=== PATIENT | male | born 1970 ===

== ENCOUNTER 2019-12-15 13:45 | Emergency (ER) | payer MEDICAID, SELFPAY ==
[2019-12-15 14:18] VITALS: BP 137/65; PULSE 74; RESP 18; TEMP 36.4; O2SAT 98; BMI 42.1
--- NOTE | 2019-12-15 15:08 | ED.EAR ---
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 Patient tells me he was cleaning his ear with a Q-tip and since then he has had pain with some mild drainage MD Complaint: ear pain, ear discharge and decreased hearing Location: right ear Duration: constant Severity: mild Treatment prior to arrival: eardrops ( using polymyxin/ Neosporin ear drops) Related Data Previous Rx's Medication Instructions Recorded amoxicillin-pot clavulanate 1 tab PO BID #14 tab 12/15/19 [Augmentin] Allergies Allergy/AdvReac Type Severity Reaction Status Date / Time No Known Allergies Allergy Verified 12/15/19 14:18 [No Known Allergies*] Review of Systems Review of Systems: Yes all other systems are reviewed and are negative Constitutional: Constitutional: Reports no additional constitutional complaints, Denies body ache(s), Denies chills, Denies fever(s), Denies headache(s) and Denies weakness Eyes: Eyes: Reports no additional eye complaints and Denies change in vision ENT: Reports system reviewed and no additional complaints, except as documented, Denies dizziness, Reports ear discharge, Reports otalgia, Denies headache(s), Denies nasal congestion, Denies nasal discharge and Denies neck pain Cardiovascular: Cardiovascular: Reports no additional cardiovascular complaints, Denies chest pain, Denies leg edema and Denies dyspnea Respiratory: Respiratory: Reports no additional respiratory complaints, Denies cough and Denies dyspnea Gastrointestinal: Gastrointestinal: Reports no additional gastrointestinal complaints, Denies abdominal pain, Denies diarrhea, Denies nausea and Denies vomiting Genitourinary: Genitourinary: Denies urinary incontinence Musculoskeletal: Musculoskeletal: Reports no additional musculoskeletal complaints, Denies back pain, Denies arthralgias, Denies joint swelling, Denies neck pain, Denies numbness and Denies tingling Integumentary/Breasts: Skin/Breast: Reports system reviewed and no additional complaints, except as docu and Denies rash Neurologic: Reports system reviewed and no additional complaints, except as documented, Denies Abnormal speech present, Denies dizziness, Denies headache(s), Denies numbness, Denies tingling and Denies weakness PMFSH Past Medical History Attestation statement: The following information was validated with the patient. Source: obtained from family and nursing notes reviewed Medical History Thyroid activity decreased Social History Social History Advance Directives: No Advance Directives Information Provided: Yes Physical Exam Vital Signs and I&O and Narrative: Vital Signs and I&O: Vital Signs Temp 97.6 F 12/15/19 14:18 Pulse 74 12/15/19 14:18 Resp 18 12/15/19 14:18 BP 137/65 12/15/19 14:18 Pulse Ox 98 12/15/19 14:18 Intake & Output 12/14/19 12/15/19 12/15/19 18:59 06:59 18:59 Weight 136.985 kg Body Mass Index 42.1 Const: General: cooperative, healthy appearing, comfortable and no acute distress Orientation/consciousness: patient oriented x3 Limitations: no limitations HENMT: Head: Yes normal to inspection Ears: hearing grossly normal bilaterally, periauricular adenopathy noted, external ear abnormal ( Erythema, exudate, swelling.), normal mastoids bilaterally and unable to visualize TM ( unable to completely visualize TM. ) on the right General nose exam: Normal external nose present Face and sinus: Yes normal facial exam Mouth: Normal oral and palatal mucosa present Throat: Yes posterior oropharynx normal Eyes: General: appearance normal, both eyes and all related structures Pupils: Equal, round and reactive pupils present Neck: Neck: Yes normal visual inspection Chest: Chest palpation & inspection: normal inspection of the chest Resp: Effort & Inspection: normal respiratory effort Auscultation: clear to auscultation bilaterally Cardio: Rate: regular rate Rhythm: regular rhythm Peripheral pulses: Peripheral pulses 2+ throughout GI: Inspection: Yes normal to inspection Palpation (GI): Soft to palpation and nontender Auscultation: normal bowel sounds Back/Spine/Pelvis: Thoracic/Lumbar Spine: thoracic and lumbar spine normal to inspection Skin: General skin exam: no rashes or lesions noted Neuro: General: patient oriented x3, no focal motor deficits and normal sensation to monofilament Cranial nerves: Yes Equal, round and reactive pupils present Cognition (Neuro): normal cognition Speech: No Abnormal speech present Gait exam (Neuro): Normal gait present Motor exam (neuro): 5/5 motor strength present throughout Extrem: General: Yes normal to inspection MDM - Ear MDM Narrative Medical decision making narrative: Exam consistent with right otitis externa. Unable to completely visualize the right TM. Due to patient's complaint of pain with associated hearing loss will also treat for acute otitis media. Again unable to completely visualize TMs the may also be a small perforation. Will have patient follow-up with PCP and ENT. Reviewed worrisome signs and symptoms and return to the emergency department. Comfortable discharge home. Discharge Plan Discharge Clinical Impression: Otitis externa Qualifiers: Otitis externa type: diffuse Chronicity: acute Laterality: right Qualified Code(s): H60.311 - Diffuse otitis externa, right ear Otitis media Qualifiers: Otitis media type: suppurative Chronicity: acute Laterality: right Recurrence: non-recurrent Spontaneous tympanic membrane rupture: without spontaneous rupture Qualified Code(s): H66.001 - Acute suppurative otitis media without spontaneous rupture of ear drum, right ear Patient Disposition: Home, Self-Care Instructions: Ear Infection (ED) Additional Instructions: We cannot rule out a small hole in the eardrum due the amount of swelling and drainage Prescriptions: New amoxicillin-pot clavulanate [Augmentin] 875-125 mg tablet 1 tab PO BID Qty: 14 RF: 0 Referrals: Rashaun Ansari [Physician] - 2 days Print Language: Swedish
== END 2019-12-15 16:23 | disposition home or self-care (01) ==
PROVIDERS: Emergency Provider Emergency Medicine; PCP Internal Medicine
DX: H60.311 Diffuse otitis externa, right ear (principal); H66.001 Acute suppurative otitis media without spontaneous rupture of ear drum, right ear; H92.01 Otalgia, right ear
CPT/HCPCS: 99283; 99284

== ENCOUNTER → 2019-12-29 10:57 | Outpatient (BNVA) | payer MEDICAID, SELFPAY | PROVIDERS: PCP Internal Medicine; Referring Provider Internal Medicine; Visit Provider Nurse Practitioner | DX: K21.9 Gastro-esophageal reflux disease without esophagitis (principal) | CPT/HCPCS: 99213 ==

== ENCOUNTER → 2020-03-30 10:49 | Outpatient (BNVA) | payer MEDICAID, SELFPAY | PROVIDERS: PCP Internal Medicine; Visit Provider Nurse Practitioner ==

== ENCOUNTER → 2020-09-22 13:04 | Outpatient (BNVA) | payer MEDICAID, SELFPAY | PROVIDERS: PCP Internal Medicine; Referring Provider Internal Medicine; Visit Provider Nurse Practitioner ==

== ENCOUNTER 2020-10-22 14:24 | Emergency (ER) | payer MEDICAID, SELFPAY ==
--- NOTE | ~2020-10-22 | CT_ITS ---
EXAMINATION: CT ABDOMEN AND PELVIS WITH CONTRAST CLINICAL INFORMATION: Right lower quadrant pain. Left flank pain. COMPARISON: Abdominal ultrasound dated 08/24/2019. TECHNIQUE: Multidetector volumetric images were obtained from the superior aspect of the liver through the pubic symphysis following administration 85 mL of Omnipaque 350 intravenous contrast. Sagittal and coronal reformatted images were obtained on the technologist's workstation. Oral Contrast: No. This CT examination was performed using dose optimization techniques as appropriate, variously including the following: *Automated exposure control. *Adjustment of mA and/or kV according to patient size (this includes techniques or standardized protocols for targeted exams where dose is matched to indication/reason for exam; i.e. extremities or head). *Use of iterative reconstruction technique. DLP: 1357 mGy-cm FINDINGS: LUNG BASES: Bilateral dependent atelectasis. LIVER, GALLBLADDER, AND BILIARY TREE: The liver is normal in size and shape. Parenchymal hypoattenuation, consistent with steatosis. No focal hepatic lesion or biliary ductal dilatation is present. Status post cholecystectomy. PANCREAS: Unremarkable. SPLEEN: Unremarkable. ADRENAL GLANDS: Unremarkable. KIDNEYS AND URETERS: The kidneys are normal in size and shape. Within the mid left ureter, there is a 0.4 cm stone located approximately 18 cm from the posterior axillary line at the level of the L3-L4 intervertebral disc. Approximately 1.5 cm more proximally within the left ureter, there is a 0.2 cm stone (axial image 431/925) at the level of the L3 vertebral body. No significant proximal hydroureter or hydronephrosis. Mild proximal periureteral and perinephric stranding, which could indicate a degree of obstructive uropathy. Slightly delayed enhancement of the left kidney. No additional renal or ureteral stone. No right-sided hydronephrosis or hydroureter. BLADDER: Unremarkable. GASTROINTESTINAL TRACT: No bowel wall thickening or associated inflammatory change. No small or large bowel obstruction. Unremarkable appendix. PERITONEAL CAVITY: No intra-abdominal free air or free fluid. No intra-abdominal mass or organized fluid collection/abscess formation. ABDOMINAL WALL: No significant hernia is appreciated. LYMPH NODES: No significant lymphadenopathy. VASCULAR: Unremarkable. PELVIC VISCERA: Prostate calcifications. OSSEOUS STRUCTURES: Unremarkable. CT/CT abdomen pelvis w con IMPRESSION: 1. Mid left ureteral stones measuring 0.4 and 0.2 cm at the level of the posterior L4 intervertebral disc and L3 vertebral body, respectively. No significant proximal hydroureter nephrosis. Proximal periureteral and perinephric stranding with mild hypoenhancement of the left kidney in relation to the right kidney, consistent with a degree of obstructive uropathy. 2. Hepatic steatosis.
[2020-10-22 14:35] VITALS: BP 143/73; PULSE 72; RESP 18; TEMP 36.6; O2SAT 98; BMI 44.3
[2020-10-22 15:24] VITALS: BP 130/65; PULSE 75; RESP 18; TEMP 36.7; O2SAT 98
--- NOTE | 2020-10-22 15:27 | PC.NURSE ---
patient a&o, c/o 12/18 back pain, vss, pt awaiting provider, will continue to monitor.
--- NOTE | 2020-10-22 15:53 | ED.GENADULT ---
HPI - General Adult General Chief complaint: Back Pain/Injury Stated complaint: back pain Time Seen by Provider: 10/22/20 15:05 Source: patient Mode of arrival: ambulatory Limitations: language barrier History of Present Illness HPI narrative: 50-year-old male with past medical history of GERD, hyperthyroid, bile salt diarrhea, and right upper quadrant abdominal pain presents for atraumatic severe left lower back pain that started at 9:00 a.m. this morning. The pain is constant and radiates to his abdomen. He has been vomiting due to pain. Movement makes his back pain worse. No urinary symptoms, no dysuria or retention, no fevers, no diarrhea, no dark or bloody stools. Patient has had no injury, no repetitive motion, no lifting. Patient has never had back pain like this before. Patient has had a cholecystectomy, no other abdominal surgeries. Onset (ago): hour(s) (6) Location: back and left Radiation: abdomen Severity: severe Severity scale (1-10): 10 Quality: stabbing Pain Consistency: constant Relieving factors: none Exacerbating factors: movement Associated symptoms: nausea/vomiting Treatments prior to arrival: none Related Data Home Medications Medication Instructions Recorded Confirmed levothyroxine 50 mcg tablet 50 mcg PO DAILY 03/30/20 03/30/20 (Synthroid) Previous Rx's Medication Instructions Recorded sucralfate 1 gram tablet (Carafate) 2 g PO BID 30 Days #120 tab 03/30/20 dicyclomine 20 mg tablet 20 mg PO QID 30 Days #120 tab 09/22/20 omeprazole 40 mg capsule,delayed 40 mg PO DAILY 30 Days #30 cap 09/22/20 release ketorolac 10 mg tablet 10 mg PO Q6H 5 Days #20 tab 10/22/20 prednisone 20 mg tablet 20 mg PO DAILY 4 Days #4 tab 10/22/20 tamsulosin 0.4 mg capsule (Flomax) 0.4 mg PO DAILY 14 Days #14 cap 10/22/20 Allergies Allergy/AdvReac Type Severity Reaction Status Date / Time No Known Allergies Allergy Verified 10/22/20 14:41 [No Known Allergies*] Review of Systems Constitutional: Constitutional: Denies body ache(s), Denies chills, Denies fatigue, Denies fever(s), Denies headache(s), Denies malaise and Denies weakness Eyes: Eyes: Denies change in vision and Denies diplopia ENT: Denies dizziness, Denies otalgia, Denies headache(s), Denies mouth pain and Denies sore throat Cardiovascular: Cardiovascular: Denies chest pain, Denies syncope, Denies leg edema, Denies lightheadedness, Denies palpitations and Denies dyspnea Respiratory: Respiratory: Denies chest congestion, Denies cough and Denies dyspnea Gastrointestinal: Gastrointestinal: Reports abdominal pain, Denies melena, Denies hematochezia, Denies change in bowel habits, Denies coffee ground emesis, Denies constipation, Denies fecal incontinence, Denies diarrhea, Reports nausea and Reports vomiting Genitourinary: Genitourinary: Denies urinary frequency, Denies urinary hesitancy, Denies urinary incontinence and Denies urinary urgency Musculoskeletal: Musculoskeletal: Reports back pain Integumentary/Breasts: Skin/Breast: Denies erythema and Denies rash Neurologic: Denies confusion, Denies dizziness, Denies syncope, Denies headache(s) and Denies weakness Psychiatric: Psychiatric: Denies anxiety, Denies confusion and Denies depression Endocrine: Endocrine: Denies fatigue and Denies palpitations PMFSH Past Medical History Medical History Thyroid activity decreased Surgical History History of cholecystectomy Family History Family History Father Diabetes High blood pressure Mother Hypothyroid High blood pressure Social History Social History Household Members: Spouse Alcohol intake: never Patient Tobacco Use Status: Never used Tobacco Use of substances other than those prescribed or required for medical reasons: No Advance Directives: No Advance Directives Information Provided: Yes Physical Exam Vital Signs: Vital Signs: Last Vital Signs Temp 99.2 F 10/22/20 18:02 Pulse 75 10/22/20 18:02 Resp 17 10/22/20 18:02 BP 116/57 L 10/22/20 18:02 Pulse Ox 96 10/22/20 18:02 Body Mass Index 44.3 Const: General: cooperative, alert, awake and acute distress (d/t pain) moderate; No confusion Nutritional Appearance: obese morbidly obese Orientation/consciousness: patient oriented x3 and No confusion Limitations: language barrier HENMT: Head: Yes normal to inspection, Yes normocephalic and Yes atraumatic Ears: hearing grossly normal bilaterally General nose exam: Normal external nose present Face and sinus: Yes normal facial exam Mouth: Normal oral and palatal mucosa present Throat: Yes posterior oropharynx normal Eyes: Conjunctivae: conjunctivae normal Pupils: Equal, round and reactive pupils present EOM: EOMs intact bilaterally Neck: Neck: Yes full ROM, Yes no lymphadenopathy and Yes supple Resp: Effort & Inspection: normal respiratory effort and able to speak in complete sentences Auscultation: clear to auscultation bilaterally, no crackles, no rales, no rhonchi and no wheezes Cardio: Rate: regular rate Rhythm: regular rhythm Heart sounds: S1 normal heart sound present and S2 normal heart sound present GI: Inspection: Yes obesity Palpation (GI): Soft to palpation, Tenderness to palpation present (GI) in the RLQ, Guarding due to palpation present (GI) in the RLQ and not rigid Percussion: Yes normal to percussion Auscultation: Hypoactive bowel sounds present Rectal Exam - Male: Yes deferred : General: Yes no CVA tenderness Back/Spine/Pelvis: Other: left paraspinous muscle tender to palp Back: no CVA tenderness Cervical Spine: normal cervical lordosis, cervical ROM normal, No pain with cervical ROM and No Cervical spine tenderness Thoracic/Lumbar Spine: paraspinal muscle tenderness on the left in the upper thoracic, No thoracic spinal tenderness and No lumbar spinal tenderness Skin: General skin exam: no rashes or lesions noted Neuro: General: patient oriented x3 and No confusion Cranial nerves: Yes Equal, round and reactive pupils present Extrem: General: Yes normal to inspection and Yes full ROM Psych: Appearance: grossly normal Affect: normal affect Attitude: cooperative Thought process: Normal thought process present Course Course Course Narrative: 50-year-old obese male presents for sudden acute 10/10 left-sided back pain radiating to his abdomen that started at 9:00 a.m. this morning. Patient has been vomiting due to pain. On exam, patient has no CVA tenderness, no vertebral bony tenderness, I can palpate left-sided lumbar paraspinous tenderness. Patient is also tenderness right lower quadrant. Question back strain versus kidney stone versus appendicitis. Give Zofran morphine fluids, getting labs and urine, will CT patient's abdomen Patient has a white blood cell count of 13.3, creatinine 1.52 that is elevated from his creatinine 3 months ago which was 1.19. Patient's bilirubin is 2.0, he has elevated aminotransferase is, AST 41, ALT 50. CT shows: Mid left ureteral stones measuring 0.4 and 0.2 cm at the level of the posterior L4 intervertebral disc and L3 vertebral body, respectively. No significant proximal hydroureter nephrosis. Proximal periureteral and perinephric stranding with mild hypoenhancement of the left kidney in relation to the right kidney, consistent with a degree of obstructive uropathy. Patient is feeling better after Dilaudid, and ketorolac. Reports pain is now 0/10. Will repeat BMP. Patient has received 1 L of fluid. Creatinine now 1.53, was 1.52 prior to fluids. Urology is not glass scullion this weekend. Will send pt home with ketorolac, flomax, and havew him call Urology and his PCP on Saturday for his mild IVY and stone. Gave strict return precautions for return: worsening back pain, urinary retention, fevers. Medical Decision Making Lab Data Result diagrams: 10/22/20 16:04 10/22/20 18:43 Labs: Lab Results 10/22/20 10/22/20 10/22/20 Range/Units 16:04 16:04 16:04 WBC 13.3 H (4.8-10.8) X10*3/uL RBC 5.19 (4.60-5.80) X10*6/uL Hgb 15.4 (14.0-18.0) g/dl Hct 45.5 (42-52) % MCV 87.7 (80-98) fL MCH 29.7 (27.0-33.0) pg MCHC 33.8 (31.0-36.0) g/dl RDW 13.5 (11.0-16.0) % Plt Count 197 (160-400) X10*3/uL MPV 12.3 (9.4-12.4) fL Immature Gran % (Auto) 0.5 H (0.0-0.4) % Neut % (Auto) 76.7 H (45-73) % Lymph % (Auto) 14.0 L (20-40) % [place] % (Auto) 8.3 (2-11) % Eos % (Auto) 0.2 (0-4) % Baso % (Auto) 0.3 (0-2) % Lymph # (Auto) 1.9 (1.2-4.9) X10*3/uL Mel[place] # (Auto) 1.1 (0.1-1.2) X10*3/uL Eos # (Auto) 0.0 (0.0-0.4) X10*3/uL Baso # (Auto) 0.0 (0.0-0.2) X10*3/uL Abs Immat Gran (auto) 0.06 H (0.00-0.03) X10*3/uL Absolute Neuts (auto) 10.2 H (2.0-8.3) X10*3/uL Absolute Nucleated RBC 0.000 (0.0-0.012) X10*3/uL Nucleated RBC % (auto) 0.0 (0.0-0.2) /100WBC Sodium 141 (135-145) mmol/L Potassium 4.7 (3.3-5.1) mmol/L Chloride 108 (96-108) mmol/L Carbon Dioxide 22 (22-29) mmol/L Anion Gap 16 (12-20) BUN 13 (9-16) mg/dL Creatinine 1.52 H (0.5-1.4) mg/dL Estim Creat Clear Calc 80.5 Estimated GFR 49 Random Glucose 141 H (60-115) mg/dL Calcium 9.1 (8.4-10.2) mg/dL Total Bilirubin 2.0 H (0.0-1.0) mg/dL AST 41 H (5-37) U/L ALT 50 H (0-40) U/L Alkaline Phosphatase 100 (39-117) U/L Total Protein 7.6 (6.5-8.0) g/dL Albumin 4.5 (3.5-5.0) g/dL Lipase 21 (8-78) U/L Urine Color YELLOW Urine Appearance CLEAR Urine pH 6.0 (5.0-8.0) Ur Specific [place] 1.025 (1.005-1.025) Urine Protein NEG (NEG-TRACE) MG/DL Urine Glucose (UA) NEG (NEG) MG/DL Urine Ketones NEG (NEG) MG/DL Urine Blood TRACE (NEG) Urine Nitrite NEG (NEG) Ur Leukocyte Esterase NEG (NEG) Urine RBC 1-4 (0) /HPF Urine WBC 0-2 (0-4) /HPF Ur Squamous Epith Cells TRACE /LPF Urine Bacteria NONE /LPF Urine Mucus TRACE /LPF COVID-19 ([facility]) (Negative) COVID-19 Clin Com 10/22/20 10/22/20 Range/Units 16:56 18:43 WBC (4.8-10.8) X10*3/uL RBC (4.60-5.80) X10*6/uL Hgb (14.0-18.0) g/dl Hct (42-52) % MCV (80-98) fL MCH (27.0-33.0) pg MCHC (31.0-36.0) g/dl RDW (11.0-16.0) % Plt Count (160-400) X10*3/uL MPV (9.4-12.4) fL Immature Gran % (Auto) (0.0-0.4) % Neut % (Auto) (45-73) % Lymph % (Auto) (20-40) % Mellette % (Auto) (2-11) % Eos % (Auto) (0-4) % Baso % (Auto) (0-2) % Lymph # (Auto) (1.2-4.9) X10*3/uL [place] # (Auto) (0.1-1.2) X10*3/uL Eos # (Auto) (0.0-0.4) X10*3/uL Baso # (Auto) (0.0-0.2) X10*3/uL Abs Immat Gran (auto) (0.00-0.03) X10*3/uL Absolute Neuts (auto) (2.0-8.3) X10*3/uL Absolute Nucleated RBC (0.0-0.012) X10*3/uL Nucleated RBC % (auto) (0.0-0.2) /100WBC Sodium 139 (135-145) mmol/L Potassium 4.7 (3.3-5.1) mmol/L Chloride 108 (96-108) mmol/L Carbon Dioxide 22 (22-29) mmol/L Anion Gap 14 (12-20) BUN 14 (9-16) mg/dL Creatinine 1.53 H (0.5-1.4) mg/dL Estim Creat Clear Calc 80.0 Estimated GFR 49 Random Glucose 135 H (60-115) mg/dL Calcium 8.6 (8.4-10.2) mg/dL Total Bilirubin (0.0-1.0) mg/dL AST (5-37) U/L ALT (0-40) U/L Alkaline Phosphatase (39-117) U/L Total Protein (6.5-8.0) g/dL Albumin (3.5-5.0) g/dL Lipase (8-78) U/L Urine Color Urine Appearance Urine pH (5.0-8.0) Ur Specific [place] (1.005-1.025) Urine Protein (NEG-TRACE) MG/DL Urine Glucose (UA) (NEG) MG/DL Urine Ketones (NEG) MG/DL Urine Blood (NEG) Urine Nitrite (NEG) Ur Leukocyte Esterase (NEG) Urine RBC (0) /HPF Urine WBC (0-4) /HPF Ur Squamous Epith Cells /LPF Urine Bacteria /LPF Urine Mucus /LPF COVID-19 ([facility]) Negative (Negative) COVID-19 Clin Com See Note Discharge Plan Discharge Clinical Impression: Kidney stone on left side, IVY (acute kidney injury) Patient Disposition: Home, Self-Care Instructions: Kidney Stones (ED) Additional Instructions: Please call Dr Gipson, Urology, on Saturday to be seen on Saturday for your kidney stones and kidney function. His phone number is [phone]. You can tell him I referred you from the emergency room today. Please fill the prescriptions for ketorolac, Flomax, prednisone, and take them as prescribed. Please return to the emergency room over the weekend if you have worsening back pain, fevers, if you have trouble passing her urine. Please also call your primary care provider on Saturday to inform them of today's emergency room visit. Please return to the ER for any new or concerning symptoms. Llame al Dr. Gipson, Urolog?a, el lunes para que lo vean el lunes por yoanna c?lculos renales y hidalgo funci?n renal. Hidalgo n?rory de tel?fono es [phone]. Puede decirle que hoy lo deriv? de la dena de emergencias. Surta las recetas de ketorolaco, Flomax, prednisona y t?melas seg?n las indicaciones. Regrese a la dena de emergencias osmin el fin de semana si tiene un dolor de espalda que empeora, fiebre, si tiene problemas para orinar. Tambi?n llame a hidalgo proveedor de atenci?n primaria el lunes para informarle de la visita de hoy a la dena de emergencias. Regrese a la dena de emergencias por cualquier s?ntoma nuevo o preocupante. Prescriptions: New ketorolac 10 mg tablet 10 mg PO Q6H 5 Days Qty: 20 RF: 0 prednisone 20 mg tablet 20 mg PO DAILY 4 Days Qty: 4 RF: 0 tamsulosin [Flomax] 0.4 mg capsule 0.4 mg PO DAILY 14 Days Qty: 14 RF: 0 No Action omeprazole 40 mg capsule,delayed release(DR/EC) 40 mg PO DAILY 30 Days Qty: 30 RF: 3 dicyclomine 20 mg tablet 20 mg PO QID 30 Days Qty: 120 RF: 6 levothyroxine [Synthroid] 50 mcg tablet 50 mcg PO DAILY RF: 0 sucralfate [Carafate] 1 gram tablet 2 g PO BID 30 Days Qty: 120 RF: 6 Referrals: Markus Gipson MD [Physician] - 2 days (left kidney stones, mildly elevated creatinine) Print Language: [place] Arabian
[2020-10-22] MEDS: ondansetron HCL 4 MG/2 ML VIAL IVPUSH (16:08)
[2020-10-22] MEDS: Morphine Sulfate 4 MG/ML CARTRIDGE IVPUSH (16:09)
[2020-10-22] MEDS: 0.9 % Sodium Chloride 500 ML 999 ML IV ×2 (16:09→18:06)
[2020-10-22 16:10] LABS: MANUAL DIFF FLAG NO
[2020-10-22 16:13] LABS: Glucose Urine UA NEG (NEG); Leukocyte Esterase Urine NEG (NEG); Nitrite Urine NEG (NEG); Specific Gravity - Urine 1.025 (1.005-1.025); Urine Blood TRACE (NEG); Urine Ketones NEG (NEG); Urine Protein NEG (NEG-TRACE)
[2020-10-22 16:14] LABS: Basophils Percent Auto 0.3 % (0-2); Eosinophils Percent Auto 0.2 % (0-4); Hematocrit 45.5 % (42-52); Hemoglobin 15.4 g/dl (14.0-18.0); Imm Gran Abs Auto 0.06 X10*3/uL (0.00-0.03); Imm Gran Pct Auto 0.5 % (0.0-0.4); Lymphocytes Absolute Auto 1.9 X10*3/uL (1.2-4.9); Mean Corpuscular HGB Conc 33.8 g/dl (31.0-36.0); Mean Corpuscular Hemoglobin 29.7 pg (27.0-33.0); Mean Corpuscular Volume 87.7 fL (80-98); Mean Platelet Volume 12.3 fL (9.4-12.4); Monocytes Absolute Auto 1.1 X10*3/uL (0.1-1.2); Monocytes Percent Auto 8.3 % (2-11); Neutrophils Absolute Auto 10.2 X10*3/uL (2.0-8.3); Neutrophils Percent Auto 76.7 % (45-73); Platelet Count 197 X10*3/uL (160-400); Red Blood Count 5.19 X10*6/uL (4.60-5.80); Red Cell Distribution Width 13.5 % (11.0-16.0); White Blood Count 13.3 X10*3/uL (4.8-10.8)
[2020-10-22 16:17] LABS: Appearance Urine CLEAR; Color Urine YELLOW
--- NOTE | 2020-10-22 16:20 | PC.NURSE ---
iv inserted, labs drawn, urine obtained, pt medicated per order, son at bedside, will continue to monitor.
[2020-10-22 16:33] LABS: Mucus Urine TRACE /LPF; Squamous Epithelial Cell Urine TRACE /LPF; WBC Urine 0-2 /HPF (0-4)
[2020-10-22 16:38] LABS: Alanine Aminotransferase 50 U/L (0-40); Albumin Level 4.5 g/dL (3.5-5.0); Alkaline Phosphatase 100 U/L (39-117); Anion Gap 16 (12-20); Aspartate Amino Transferase 41 U/L (5-37); Blood Urea Nitrogen 13 mg/dL (9-16); Calcium 9.1 mg/dL (8.4-10.2); Carbon Dioxide 22 mmol/L (22-29); Chloride 108 mmol/L (96-108); Creatinine Clr Calc Pharmacy 80.5; Estimated Glomerular Filt Rate 49; Glucose Random 141 mg/dL (60-115); Lipase 21 U/L (8-78); Potassium 4.7 mmol/L (3.3-5.1); Sodium 141 mmol/L (135-145); Total Protein 7.6 g/dL (6.5-8.0)
[2020-10-22] MEDS: iohexoL 350 MG/ML 100 ML INFUS..BTL IV (17:10)
[2020-10-22] MEDS: HYDROmorphone HCl 1 MG/ML SYRINGE IVPUSH (17:16)
[2020-10-22 17:18] LABS: COVID-19 Test Negative (Negative); IDNOW Serial# 9DD0AD1C
[2020-10-22 18:02] VITALS: BP 116/57; PULSE 75; RESP 17; TEMP 37.3; O2SAT 96
[2020-10-22] MEDS: Ketorolac Tromethamine 15 MG/ML VIAL 30 MG IVPUSH (18:06)
--- NOTE | 2020-10-22 18:46 | PC.NURSE ---
PA at bedside discussing results and pt condition. cardiac monitor technician at bedside for repeat BMP.
[2020-10-22 19:20] LABS: Anion Gap 14 (12-20); Blood Urea Nitrogen 14 mg/dL (9-16); Calcium 8.6 mg/dL (8.4-10.2); Carbon Dioxide 22 mmol/L (22-29); Chloride 108 mmol/L (96-108); Estimated Glomerular Filt Rate 49; Glucose Random 135 mg/dL (60-115); Potassium 4.7 mmol/L (3.3-5.1); Sodium 139 mmol/L (135-145)
--- NOTE | 2020-10-22 19:36 | PC.NURSE ---
PA at bedside with product specialist discussing plan for DC and to f/u with Urology.
[2020-10-22 19:46] VITALS: BP 119/55; PULSE 70; RESP 16
== END 2020-10-22 20:00 | disposition home or self-care (01) ==
PROVIDERS: Physician Assistant; Emergency Provider Emergency Medicine; PCP Internal Medicine
DX: N20.0 Calculus of kidney (principal); N17.9 Acute kidney failure, unspecified; R10.11 Right upper quadrant pain; M54.5 Low back pain; Z20.822 Contact with and (suspected) exposure to COVID-19
CPT/HCPCS: 36415; 74177; 80048; 80053; 81001; 83690; 85025; 87635; 96361; 96374; 96375; 99284; J1170; J1885; J2270; J2405; Q9967

== ENCOUNTER 2020-10-31 00:12 | Emergency (ER) | payer MEDICAID, SELFPAY ==
[2020-10-31 00:40] VITALS: BP 140/70; PULSE 86; RESP 18; TEMP 36.8; O2SAT 98; BMI 36.5
[2020-10-31 01:56] LABS: MANUAL DIFF FLAG NO
[2020-10-31 01:58] LABS: Basophils Percent Auto 0.3 % (0-2); Eosinophils Absolute Auto 0.1 X10*3/uL (0.0-0.4); Eosinophils Percent Auto 0.5 % (0-4); Glucose Urine UA NEG (NEG); Hematocrit 44.1 % (42-52); Hemoglobin 15.2 g/dl (14.0-18.0); Imm Gran Abs Auto 0.08 X10*3/uL (0.00-0.03); Imm Gran Pct Auto 0.6 % (0.0-0.4); Leukocyte Esterase Urine NEG (NEG); Lymphocytes Absolute Auto 2.8 X10*3/uL (1.2-4.9); Lymphocytes Percent Auto 20.2 % (20-40); Mean Corpuscular HGB Conc 34.5 g/dl (31.0-36.0); Mean Corpuscular Hemoglobin 29.4 pg (27.0-33.0); Mean Corpuscular Volume 85.3 fL (80-98); Mean Platelet Volume 11.3 fL (9.4-12.4); Monocytes Absolute Auto 1.1 X10*3/uL (0.1-1.2); Monocytes Percent Auto 8.3 % (2-11); Neutrophils Absolute Auto 9.6 X10*3/uL (2.0-8.3); Neutrophils Percent Auto 70.1 % (45-73); Nitrite Urine NEG (NEG); PH 5.5 (5.0-8.0); Platelet Count 218 X10*3/uL (160-400); Red Blood Count 5.17 X10*6/uL (4.60-5.80); Red Cell Distribution Width 13.1 % (11.0-16.0); UACC Culture Trigger NO; Urine Blood 1+ (NEG); Urine Ketones NEG (NEG); Urine Protein NEG (NEG-TRACE); White Blood Count 13.7 X10*3/uL (4.8-10.8)
[2020-10-31 01:59] LABS: Appearance Urine CLEAR; Color Urine YELLOW
[2020-10-31 02:01] LABS: Bacteria Urine TRACE /LPF; RBC Urine 0-2 /HPF (0); Squamous Epithelial Cell Urine TRACE /LPF; WBC Urine 0-2 /HPF (0-4)
[2020-10-31 02:28] LABS: Alanine Aminotransferase 30 U/L (0-40); Albumin Level 4.3 g/dL (3.5-5.0); Alkaline Phosphatase 104 U/L (39-117); Anion Gap 12 (12-20); Aspartate Amino Transferase 17 U/L (5-37); Bilirubin Total 1.1 mg/dL (0.0-1.0); Blood Urea Nitrogen 17 mg/dL (9-16); Calcium 9.1 mg/dL (8.4-10.2); Carbon Dioxide 24 mmol/L (22-29); Chloride 106 mmol/L (96-108); Estimated Glomerular Filt Rate 42; Glucose Random 179 mg/dL (60-115); Potassium 4.4 mmol/L (3.3-5.1); Sodium 138 mmol/L (135-145); Total Protein 7.2 g/dL (6.5-8.0)
[2020-10-31 03:39] VITALS: BP 165/96; PULSE 76; RESP 16; O2SAT 96
[2020-10-31] MEDS: Ketorolac Tromethamine 15 MG/ML VIAL 30 MG IVPUSH (04:10)
[2020-10-31] MEDS: 0.9 % Sodium Chloride 1,000 ML 999 ML IVCONT (04:11)
--- NOTE | 2020-10-31 05:42 | ED_ITS ---
HPI - Abdominal Pain General Chief Complaint: Abdominal Pain Stated Complaint: kidney pain Time Seen by Provider: 10/31/20 03:09 Source: patient Mode of arrival: ambulatory Limitations: no limitations History of Present Illness HPI narrative: Patient comes emergency room complaining of left-sided flank pain. Patient states he was evaluated here a week ago. Patient is known to have kidney stones. Patient has an appointment pending with urology. Patient denies nausea or vomiting, no hematuria Related Data Home Medications Medication Instructions Recorded Confirmed levothyroxine 50 mcg tablet 50 mcg PO DAILY 03/30/20 03/30/20 (Synthroid) Previous Rx's Medication Instructions Recorded sucralfate 1 gram tablet (Carafate) 2 g PO BID 30 Days #120 tab 03/30/20 dicyclomine 20 mg tablet 20 mg PO QID 30 Days #120 tab 09/22/20 omeprazole 40 mg capsule,delayed 40 mg PO DAILY 30 Days #30 cap 09/22/20 release ketorolac 10 mg tablet 10 mg PO Q6H 5 Days #20 tab 10/22/20 ketorolac 10 mg tablet 10 mg PO Q6H 5 Days #20 tab 10/22/20 prednisone 20 mg tablet 20 mg PO DAILY 4 Days #4 tab 10/22/20 prednisone 20 mg tablet 20 mg PO DAILY 4 Days #4 tab 10/22/20 tamsulosin 0.4 mg capsule (Flomax) 0.4 mg PO DAILY 14 Days #14 cap 10/22/20 tamsulosin 0.4 mg capsule (Flomax) 0.4 mg PO DAILY 14 Days #14 cap 10/22/20 ketorolac 10 mg tablet 10 mg PO TID PRN 5 Days #10 tab 10/31/20 Allergies Allergy/AdvReac Type Severity Reaction Status Date / Time No Known Allergies Allergy Verified 10/31/20 00:39 [No Known Allergies*] Review of Systems Review of Systems Constitutional : No Weight loss, No Fever, No Chills, No Night Sweats, No Fatigue, No Malaise ENT/Mouth : No Hearing loss, No Ear Pain, No Nasal Congestion, No Sinus Pain, No Hoarseness, No sore throat, No Rhinorrhea, No Swallowing Difficulty Eyes: No Eye Pain, No Swelling, No Redness, No Foreign Body, No Discharge, No Vision Changes Cardiovascular : No Chest Pain, No SOB, No Dyspnea on Exertion, No Orthopnea, No Edema, No Palpitations Respiratory : No Cough, No Sputum, No Wheezing, No Smoke Exposure, No Dyspnea Gastrointestinal : No Nausea, No Vomiting, No Diarrhea, No Constipation, No abdominal Pain, No Hematochezia, No Melena Genitourinary : no irregular bleeding, No Dysuria, No Urinary Frequency, No Hematuria, No Urinary Incontinence, No Urgency, complaining of left-sided Flank Pain, No Urinary Flow Changes, No Hesitancy Musculoskeletal : No joint pain, No Myalgias, No Joint Swelling Skin : No Skin Lesions, No rash Neuro : No Weakness, No Numbness, No Paresthesias, No Loss of Consciousness, No Dizziness, No Headache Psych : No Anxiety/Panic, No Depression, No SI/HI/AH/VH, No Social Issues, Heme/Lymph: No Bruising, No Bleeding,No Lymphadenopathy Endocrine : No Polyuria, No Polydipsia, No Temperature Intolerance Physical Exam Vital Signs: Vital Signs: Last Vital Signs Temp 98.2 F 10/31/20 00:40 Pulse 76 10/31/20 03:39 Resp 16 10/31/20 03:39 BP 165/96 H 10/31/20 03:39 Pulse Ox 96 10/31/20 03:39 Body Mass Index 36.5 Const: Other: Patient states that after the IV dose of ketorolac, his pain nearly resolved. Patient has opted to follow up with his urologist. Patient's creatinine has been bumped, he received 1 L of normal saline. Patient instructed to follow-up with PCP MDM - Abdominal Pain Lab Data Result diagrams: 10/31/20 01:52 10/31/20 01:52 Labs: Lab Results 10/31/20 10/31/20 10/31/20 Range/Units 01:52 01:52 01:52 WBC 13.7 H (4.8-10.8) X10*3/uL RBC 5.17 (4.60-5.80) X10*6/uL Hgb 15.2 (14.0-18.0) g/dl Hct 44.1 (42-52) % MCV 85.3 (80-98) fL MCH 29.4 (27.0-33.0) pg MCHC 34.5 (31.0-36.0) g/dl RDW 13.1 (11.0-16.0) % Plt Count 218 (160-400) X10*3/uL MPV 11.3 (9.4-12.4) fL Immature Gran % (Auto) 0.6 H (0.0-0.4) % Neut % (Auto) 70.1 (45-73) % Lymph % (Auto) 20.2 (20-40) % [place] % (Auto) 8.3 (2-11) % Eos % (Auto) 0.5 (0-4) % Baso % (Auto) 0.3 (0-2) % Lymph # (Auto) 2.8 (1.2-4.9) X10*3/uL [place] # (Auto) 1.1 (0.1-1.2) X10*3/uL Eos # (Auto) 0.1 (0.0-0.4) X10*3/uL Baso # (Auto) 0.0 (0.0-0.2) X10*3/uL Abs Immat Gran (auto) 0.08 H (0.00-0.03) X10*3/uL Absolute Neuts (auto) 9.6 H (2.0-8.3) X10*3/uL Absolute Nucleated RBC 0.000 (0.0-0.012) X10*3/uL Nucleated RBC % (auto) 0.0 (0.0-0.2) /100WBC Sodium 138 (135-145) mmol/L Potassium 4.4 (3.3-5.1) mmol/L Chloride 106 (96-108) mmol/L Carbon Dioxide 24 (22-29) mmol/L Anion Gap 12 (12-20) BUN 17 H (9-16) mg/dL Creatinine 1.75 H (0.5-1.4) mg/dL Estim Creat Clear Calc 61.0 Estimated GFR 42 Random Glucose 179 H (60-115) mg/dL Calcium 9.1 (8.4-10.2) mg/dL Total Bilirubin 1.1 H (0.0-1.0) mg/dL AST 17 D (5-37) U/L ALT 30 (0-40) U/L Alkaline Phosphatase 104 (39-117) U/L Total Protein 7.2 (6.5-8.0) g/dL Albumin 4.3 (3.5-5.0) g/dL Urine Color YELLOW Urine Appearance CLEAR Urine pH 5.5 (5.0-8.0) Ur Specific [place] 1.020 (1.005-1.025) Urine Protein NEG (NEG-TRACE) MG/DL Urine Glucose (UA) NEG (NEG) MG/DL Urine Ketones NEG (NEG) MG/DL Urine Blood 1+ H (NEG) Urine Nitrite NEG (NEG) Ur Leukocyte Esterase NEG (NEG) Urine RBC 0-2 (0) /HPF Urine WBC 0-2 (0-4) /HPF Ur Squamous Epith Cells TRACE /LPF Urine Bacteria TRACE /LPF Discharge Plan Discharge Clinical Impression: Acute flank pain Patient Disposition: Home, Self-Care Instructions: Flank Pain (ED) Additional Instructions: Please follow-up with your primary care physician tomorrow. If you have any worsening or new symptoms, please return to the emergency room or call 911 Prescriptions: New ketorolac 10 mg tablet 10 mg PO TID PRN (Reason: pain) 5 Days Qty: 10 RF: 0 No Action ketorolac 10 mg tablet 10 mg PO Q6H 5 Days Qty: 20 RF: 0 prednisone 20 mg tablet 20 mg PO DAILY 4 Days Qty: 4 RF: 0 tamsulosin [Flomax] 0.4 mg capsule 0.4 mg PO DAILY 14 Days Qty: 14 RF: 0 ketorolac 10 mg tablet 10 mg PO Q6H 5 Days Qty: 20 RF: 0 prednisone 20 mg tablet 20 mg PO DAILY 4 Days Qty: 4 RF: 0 tamsulosin [Flomax] 0.4 mg capsule 0.4 mg PO DAILY 14 Days Qty: 14 RF: 0 omeprazole 40 mg capsule,delayed release(DR/EC) 40 mg PO DAILY 30 Days Qty: 30 RF: 3 dicyclomine 20 mg tablet 20 mg PO QID 30 Days Qty: 120 RF: 6 levothyroxine [Synthroid] 50 mcg tablet 50 mcg PO DAILY RF: 0 sucralfate [Carafate] 1 gram tablet 2 g PO BID 30 Days Qty: 120 RF: 6 PMFSH Past Medical History Medical History Thyroid activity decreased Surgical History History of cholecystectomy Family History Family History Father Diabetes High blood pressure Mother Hypothyroid High blood pressure Social History Social History Household Members: Spouse Alcohol intake: never Patient Tobacco Use Status: Never used Tobacco Advance Directives: No
[2020-10-31 05:59] VITALS: BP 149/88; PULSE 58; RESP 16; O2SAT 97
--- NOTE | 2020-10-31 06:14 | PC.NURSE ---
PT WAS SLEEPING AT TIME OF DISCHARGE, WAKES EASILY. PT UNDERSTANDS TO FOLLOW UP WITH PCP. UROLOGY APPT ON 11/11, ENCOURAGED TO CALL OFFICE TODAY.
== END 2020-10-31 06:14 | disposition home or self-care (01) ==
PROVIDERS: Emergency Provider Emergency Medicine
DX: R10.9 Unspecified abdominal pain (principal); Z79.899 Other long term (current) drug therapy
CPT/HCPCS: 36415; 80053; 81001; 85025; 96361; 96374; 99284; J1885

== ENCOUNTER → 2020-11-03 09:43 | Outpatient (BNVA) | payer MEDICAID, SELFPAY | PROVIDERS: PCP Internal Medicine; Referring Provider Internal Medicine; Visit Provider Nurse Practitioner | DX: R10.11 Right upper quadrant pain (principal); R19.7 Diarrhea, unspecified; K90.89 Other intestinal malabsorption; K21.9 Gastro-esophageal reflux disease without esophagitis | CPT/HCPCS: 99212 ==

== ENCOUNTER → 2020-11-15 13:16 | Outpatient (BNVA) | payer MEDICAID, SELFPAY | PROVIDERS: PCP Internal Medicine; Visit Provider Urology | DX: N20.0 Calculus of kidney (principal) | CPT/HCPCS: 99202 ==

== ENCOUNTER 2020-12-12 09:19 | Outpatient (REF) | payer MEDICAID, SELFPAY ==
--- NOTE | ~2020-12-12 | US_ITS ---
EXAMINATION: US RETROPERITONEAL LIMITED (RENAL ONLY) CLINICAL INFORMATION: Calculus of kidney. COMPARISON: CT abdomen pelvis 10/22/2020. Ultrasound abdomen 08/24/2019 and 04/24/2018. TECHNIQUE: Real-time imaging of the kidneys. FINDINGS: RIGHT KIDNEY: 13.2 x 6.1 x 6.5 cm (SAG x AP x TRV). The kidney is normal in size, contour, and echogenicity. Renal cortical thickness is normal. No calculi or focal parenchymal lesions. No hydronephrosis. LEFT KIDNEY: 12.0 x 5.5 x 6.3 cm (SAG x AP x TRV). The kidney is normal in size, contour, and echogenicity. Renal cortical thickness is normal. No calculi or focal parenchymal lesions. No hydronephrosis. US/US renal BI IMPRESSION: Normal renal ultrasound.
== END 2020-12-12 09:20 | disposition home or self-care (01) ==
LOC: HO.HMGCX 09:19
PROVIDERS: PCP Internal Medicine; Visit Provider Urology
DX: N20.0 Calculus of kidney (principal)
CPT/HCPCS: 76775

== ENCOUNTER → 2020-12-29 09:44 | Outpatient (BNVA) | payer MEDICAID, SELFPAY | PROVIDERS: PCP Internal Medicine; Visit Provider Urology ==

== ENCOUNTER → 2021-05-08 14:01 | Outpatient (BNVA) | payer MEDICAID, SELFPAY | PROVIDERS: PCP Internal Medicine; Referring Provider Internal Medicine; Visit Provider Nurse Practitioner | DX: R10.11 Right upper quadrant pain (principal); K90.89 Other intestinal malabsorption; K21.9 Gastro-esophageal reflux disease without esophagitis; Z79.899 Other long term (current) drug therapy | CPT/HCPCS: 99212 ==

== ENCOUNTER 2021-06-08 13:40 | Outpatient (REF) | payer MEDICAID, SELFPAY ==
--- NOTE | ~2021-06-08 | US_ITS ---
EXAMINATION: US RETROPERITONEAL LIMITED (RENAL ONLY) CLINICAL INFORMATION: Calculus of kidney. COMPARISON: Renal ultrasound 12/12/2020. CT abdomen and pelvis 10/22/2020. Ultrasound abdomen 08/24/2019. TECHNIQUE: Real-time imaging of the kidneys. FINDINGS: RIGHT KIDNEY: 12.1 x 5.9 x 6.4 cm (SAG x AP x TRV). The kidney is normal in size, contour, and echogenicity. Renal cortical thickness is normal. No calculi or focal parenchymal lesions. No hydronephrosis. LEFT KIDNEY: 10.8 x 6.0 x 5.9 cm (SAG x AP x TRV). The kidney is normal in size, contour, and echogenicity. Renal cortical thickness is normal. No calculi or focal parenchymal lesions. No hydronephrosis. The liver is echogenic. US/US renal BI IMPRESSION: Normal renal ultrasound. No stone seen.
== END 2021-06-08 13:41 | disposition home or self-care (01) ==
LOC: HO.HMGCX 13:40
PROVIDERS: Visit Provider Urology
DX: N20.0 Calculus of kidney (principal)
CPT/HCPCS: 76775

== ENCOUNTER → 2021-07-05 14:33 | Outpatient (BNVA) | payer MEDICAID, SELFPAY | PROVIDERS: PCP Internal Medicine; Visit Provider Urology | DX: R79.89 Other specified abnormal findings of blood chemistry (principal) | CPT/HCPCS: 99212 ==

== ENCOUNTER 2021-10-04 06:59 | Day surgery (SDC) | payer MEDICAID, SELFPAY ==
[2021-09-29 10:56] VITALS: BMI 46.3
[2021-10-04 07:14] VITALS: BP 150/77; PULSE 68; RESP 17; TEMP 36.6; O2SAT 97
[2021-10-04 07:37] LABS: Glucose, Whole Blood 127 mg/dL (60-115)
[2021-10-04] MEDS: Lactated Ringers 1,000 ML 50 ML IVCONT (07:41)
--- NOTE | 2021-10-04 07:57 | P.CONAN_ITS ---
[facility], LATER [facility] Active Problems Active Problems: All Active Problems (Updated 07/05/21 @ 15:21 by Markus Gipson MD) Elevated serum creatinine (Acute) Colon cancer screening (Acute) Nephrolithiasis (Acute) Right upper quadrant abdominal pain (Acute) Bile salt-induced diarrhea (Acute) GERD (gastroesophageal reflux disease) (Acute) Past Medical History Medical History Cholecystectomy planned Thyroid activity decreased Family History Family History Father Diabetes High blood pressure Mother Hypothyroid High blood pressure Family history of problems with anesthesia: No Surgical History Surgical History History of cholecystectomy History of Problems with Anesthesia: No Social History Social History Household Members: Spouse Alcohol intake: never Patient Tobacco Use Status: Never used Tobacco Are you DNR?: No Advance Directives: No Advance Directives Information Provided: Yes Recently lost weight without trying: No Nutrition Risks: No Nutritional Risk Meds Allergies Allergy/AdvReac Type Severity Reaction Status Date / Time No Known Allergies Allergy Verified 07/05/21 14:39 [No Known Allergies*] Active Medications: Current Medications Lactated Ringer's (Lr) 1,000 mls @ 50 mls/hr IVCONT .Q20H BALJIT Last Admin: 10/04/21 07:41 Dose: 50 mls/hr Ondansetron HCl (Ondansetron Hcl 4 Mg/2 Ml Vial) 4 mg IVPUSH ONCE PRN PRN Reason: Nausea and Vomiting Home Medications Medication Instructions Recorded Confirmed Last Taken Type levothyroxine 112 mcg tablet 112 mcg PO DAILY 12/29/20 Unknown History blood sugar diagnostic (FreeStyle #10 ea 07/05/21 Unknown History Lite Strips) lancets 33 gauge (TRUEplus Lancets) #100 ea 07/05/21 Unknown History levothyroxine 125 mcg tablet 125 mcg PO DAILY 07/05/21 Unknown History metformin 500 mg tablet 500 mg PO 07/05/21 Unknown History Exam Exam Date and Time: October 04, 2021 0757 Height,Weight and Vital Signs: Height 5 ft 8 in Weight 138.346 kg Last Vital Signs Temp 98 F 10/04/21 07:14 Pulse 68 10/04/21 07:14 Resp 17 10/04/21 07:14 BP 150/77 H 10/04/21 07:14 Pulse Ox 97 10/04/21 07:14 O2 Del Method 10/04/21 07:14 Pertinent Lab Results Pertinent Lab Results: Laboratory Tests 10/04/21 07:31 POC Glucose 127 H Airway Mallampati Class: IV TM Dist: >3cm Neck ROM: Full Loose/Missing/Broken Teeth: No (Rrr) Heart: rrr Lungs: clear Assessment and Plan Final Anesthetic Review Family History of Problems with Anesthesia: No History of Problems with Anesthesia: No NPO: Yes ASA Class: II Final Preanesthetic Review: No Changes in Pt Med Stat, Meds/Allgs Chart Reviewed, Consent Obtained/Reviewed and Anes Risks/Benef Reviewed Patient Risk: Intermediate Procedure Risk: Low Anesthetic Plan Anesthetic Plan: MAC: Disposition: Standard PACU
--- NOTE | 2021-10-04 08:47 | MHC.SHP ---
Pre-Procedural Eval Section A Date of Service: 10/04/21 Section B Chief Complaint: screening Relevant Family History (Specify if Yes): No Relevant Social History: None Present Medications: see Short Stay Collaborative assessment Medical History: Significant History (hypothyroid, obesity, DM) History of Previous Operations: Relevant previous surgery/procedure and date(s) (History of cholecystectomy) Allergies: Allergies Allergy/AdvReac Type Severity Reaction Status Date / Time No Known Allergies Allergy Verified 07/05/21 14:39 [No Known Allergies*] Review of Systems Sugical H&P ROS: Negative: Constitution, Cardiovascular, Respiratory, Neurological, Psychiatric, Hem-Onc, Allergic/Immunologic, Gastrointestinal, Genitourinary, Musculoskeletal, Integumentary, Endocrine and Eyes/Ears/Nose/Throat Exam Surgical H&P Exam: Normal: HEENT, Normal: Heart, Normal: Lungs, Normal: Extremities, Normal: Abdomen, Normal: Skin and Normal: Neurological Plan Diagnosis/Plan: Unchanged I have reviewed the history and physical and performed a pertinent physical examination on my patient. No changes have occurred unless specified.
--- NOTE | 2021-10-04 09:04 | P.OP_ITS ---
Operative Note Operative Note Date of Service: 10/04/21 Narrative: Operative Information Procedure Description: Colonoscopy Indication: screening Anesthesia: MAC COLONOSCOPY Instrument: Olympus variable stiffness adult scope 190L Colonoscopy Monitoring: Vital signs and clinical assessment, continuous EKG monitoring, Pulse oximetry, Carbon Dioxide monitoring and blood pressure monitoring were done throughout the procedure. Colon withdrawal time was 12 minutes. Procedure: The patient was placed in the left lateral decubitis position and pre-procedure medications were administered. After a digital rectal examination of the ano-rectum, the video colonoscope was inserted into the rectum and advanced through the colon to the cecum/TI. The colonoscope was slowly withdrawn in a retrograde panoramic fashion and the colon mucosa was carefully examined including a retroflexed view of the rectum. Findings and interventions are described below. Procedure Difficulty: easy Findings: Terminal Ileum-normal Cecum:normal Ascending Colon: 5-7 mm sessile polyp removed with cold forceps Transverse Colon -normal Descending Colon:normal Sigmoid Colon: normal Rectum: Retroflexion with small internal hemorrhoids, grade I Anorectum - normal Colon preparation: [employer] Bowel Preparation Scale Right colon; 2 Transverse colon: 1-2 Left colon; 2 (0 = Unprepared colon segment with mucosa not seen due to solid stool that cannot be cleared. 1 = Portion of mucosa of the colon segment seen, but other areas of the colon segment not well seen due to staining, residual stool and/or opaque liquid. 2 = Minor amount of residual staining, small fragments of stool and/or opaque liquid, but mucosa of colon segment seen well. 3 = Entire mucosa of colon segment seen well with no residual staining, small fragments of stool or opaque liquid) Impression and Post Procedure Diagnosis: polyp internal hemorrhoids Plan: High fiber diet leaflet Avoid straining at stool, epsom salts and sitz bath, anusol supps or cream Repeat Colonoscopy in 5 years due to polyp and equivocal prep in transverse colon or earlier if clinically indicated Above findings were reviewed with the patient and relevant handouts were provided if indicated.
[2021-10-04 09:10] VITALS: BP 125/71; PULSE 69; RESP 20; TEMP 36.2; O2SAT 96
[2021-10-04 09:25] VITALS: BP 138/77; PULSE 70; RESP 20; TEMP 36.2; O2SAT 96
== END 2021-10-04 10:00 | disposition home or self-care (01) ==
PROVIDERS: Visit Provider Internal Medicine Gastroenterology
PROC: 0DJD8ZZ Inspection of Lower Intestinal Tract, Via Natural or Artificial Opening Endoscopic (ICD-10-PCS; CPT 45378; principal; 2021-10-04 08:30)
DX: Z12.11 Encounter for screening for malignant neoplasm of colon (principal); D12.2 Benign neoplasm of ascending colon; K64.0 First degree hemorrhoids; R10.11 Right upper quadrant pain; K90.89 Other intestinal malabsorption; K21.9 Gastro-esophageal reflux disease without esophagitis; E03.9 Hypothyroidism, unspecified; E66.9 Obesity, unspecified; Z68.42 Body mass index [BMI] 45.0-49.9, adult; E11.9 Type 2 diabetes mellitus without complications; Z79.84 Long term (current) use of oral hypoglycemic drugs; Z79.899 Other long term (current) drug therapy; Z90.49 Acquired absence of other specified parts of digestive tract
CPT/HCPCS: 45380; 82947; 88305

== ENCOUNTER → 2021-10-19 09:21 | Outpatient (BNVA) | payer MEDICAID, SELFPAY | PROVIDERS: Visit Provider Nurse Practitioner | DX: D12.6 Benign neoplasm of colon, unspecified (principal); K90.89 Other intestinal malabsorption; K21.9 Gastro-esophageal reflux disease without esophagitis; Z98.890 Other specified postprocedural states | CPT/HCPCS: 99212 ==

== ENCOUNTER 2021-11-07 10:33 | Outpatient (REF) | payer MEDICAID, SELFPAY ==
--- NOTE | ~2021-11-07 | US_ITS ---
EXAMINATION: US ABDOMEN LIMITED CLINICAL INFORMATION: Right upper quadrant pain. COMPARISON: US retroperitoneal limited (renal only) 06/08/2021 and 12/12/2020. CT abdomen and pelvis with contrast 10/22/2020. TECHNIQUE: Real-time imaging of the right upper quadrant abdominal viscera. FINDINGS: PANCREAS: Normal. LIVER: The liver is enlarged. Liver echotexture is increased.. The liver contour is normal. No focal hepatic lesion. There is no intrahepatic biliary duct dilatation seen. GALLBLADDER: Surgically absent. COMMON BILE DUCT: Normal in caliber measuring 0.4 cm in diameter. RIGHT KIDNEY: Normal. No hydronephrosis. No renal calculi or focal parenchymal lesions. The kidney measures 12.4 cm in maximum dimension. FREE FLUID: None. US/US abdomen limited IMPRESSION: Enlarged echogenic liver probably representing fatty infiltration.
== END 2021-11-07 10:34 | disposition home or self-care (01) ==
LOC: HO.HMGCX 10:33
PROVIDERS: PCP Family Medicine; Visit Provider Family Medicine
DX: R94.5 Abnormal results of liver function studies (principal)
CPT/HCPCS: 76705

== ENCOUNTER 2022-04-18 09:52 | Outpatient (REF) | payer MEDICAID, SELFPAY ==
--- NOTE | ~2022-04-18 | US_ITS ---
EXAMINATION: US RETROPERITONEAL LIMITED (RENAL ONLY) CLINICAL INFORMATION: Calculus of kidney. COMPARISON: Ultrasound abdomen limited 11/07/2021. Ultrasound retroperitoneal limited (renal only) 06/08/2021. CT abdomen and pelvis with contrast 10/22/2020. TECHNIQUE: Real-time imaging of the kidneys. FINDINGS: RIGHT KIDNEY: 12.3 x 5.6 x 7.9 cm (SAG x AP x TRV). The kidney is normal in size, contour, and echogenicity. Renal cortical thickness is normal. No calculi or focal parenchymal lesions. No hydronephrosis. LEFT KIDNEY: 11.4 x 6.2 x 6.4 cm (SAG x AP x TRV). The kidney is normal in size, contour, and echogenicity. Renal cortical thickness is normal. No calculi or focal parenchymal lesions. No hydronephrosis. US/US renal BI IMPRESSION: No nephrolithiasis or hydronephrosis.
== END 2022-04-18 09:53 | disposition home or self-care (01) ==
LOC: HO.HMGCX 09:52
PROVIDERS: PCP Internal Medicine; Visit Provider Urology
DX: N20.0 Calculus of kidney (principal)
CPT/HCPCS: 76775

== ENCOUNTER → 2022-04-19 09:40 | Outpatient (BNVA) | payer MEDICAID, SELFPAY | PROVIDERS: PCP Internal Medicine; Visit Provider Nurse Practitioner | DX: K21.9 Gastro-esophageal reflux disease without esophagitis (principal); K59.04 Chronic idiopathic constipation; D12.6 Benign neoplasm of colon, unspecified; Z98.890 Other specified postprocedural states | CPT/HCPCS: 99212 ==

== ENCOUNTER 2022-08-09 04:26 | Emergency (ER) | payer MEDICAID, SELFPAY ==
--- NOTE | ~2022-08-09 | CT_ITS ---
EXAMINATION: CT ABDOMEN AND PELVIS WITHOUT CONTRAST CLINICAL INFORMATION: Right flank pain. Hematuria. COMPARISON: Renal ultrasound 04/18/2022. CT abdomen pelvis 10/22/2020. TECHNIQUE: Multidetector volumetric imaging was performed from the superior aspect of the liver through the pubic symphysis. Sagittal and coronal reformatted images were obtained on the technologist's workstation. This CT examination was performed using dose optimization techniques as appropriate, variously including the following: *Automated exposure control *Adjustment of mA and/or kV according to patient size (this includes techniques or standardized protocols for targeted exams where dose is matched to indication/reason for exam; i.e. extremities or head) *Use of iterative reconstruction technique DLP: 925 mGy-cm FINDINGS: LUNG BASES: The visualized lung bases are unremarkable. LIVER, GALLBLADDER, AND BILIARY TREE: The liver is normal in size, shape, and attenuation. No focal hepatic lesion or biliary ductal dilatation is present. Cholecystectomy clips are noted. No biliary duct dilatation visualized. PANCREAS: Unremarkable. SPLEEN: Unremarkable. ADRENAL GLANDS: Unremarkable. KIDNEYS AND URETERS: No urolithiasis is identified. No hydronephrosis, perinephric inflammatory changes or perinephric fluid collections noted. No ureterectasis visualized. BLADDER: Mild physiologic distention. No calculi. GASTROINTESTINAL TRACT: No intestinal dilatation or mural thickening identified. Normal appearance of the appendix. Normal appearance of the sigmoid and small bowel mesenteries. No free intraperitoneal fluid or gas collections identified. The terminal ileum is normal in appearance. The stomach is normal in appearance. ABDOMINAL WALL: Subcutaneous gas is present in the anterior abdominal wall along the right lower quadrant. Findings may relate to recent subcutaneous injection. LYMPH NODES: Normal. VASCULAR: Unremarkable. PELVIC VISCERA: The prostate is normal in size. Incidental note made of dystrophic benign-appearing calcifications within the prostate. OSSEOUS STRUCTURES: Mild multilevel facet hypertrophic changes of the lumbar spine. Minimal multilevel anterior and plate osteophytosis scattered within the visualized thoracic and lumbar spine. CT/CT abdomen pelvis wo IV con IMPRESSION: 1. No acute abnormalities identified. 2. No urolithiasis. No hydronephrosis or ureterectasis. Normal appearance of the kidneys and ureters. 3. Normal appearance of the appendix. No free intraperitoneal fluid or gas collections. 4. Status post cholecystectomy.
[2022-08-09 04:30] VITALS: BP 134/67; PULSE 73; RESP 18; TEMP 36.4; O2SAT 97; BMI 41.0
[2022-08-09 05:12] LABS: Basophils Absolute Auto 0.1 X10*3/uL (0.0-0.2); Eosinophils Absolute Auto 0.1 X10*3/uL (0.0-0.4); Eosinophils Percent Auto 1.5 % (0-4); Hematocrit 45.5 % (42.0-52.0); Hemoglobin 14.9 g/dl (14.0-18.0); Imm Gran Abs Auto 0.02 X10*3/uL (0.00-0.03); Imm Gran Pct Auto 0.2 % (0.0-0.4); Lymphocytes Absolute Auto 3.5 X10*3/uL (1.2-4.9); Lymphocytes Percent Auto 38.6 % (20-40); MANUAL DIFF FLAG NO; Mean Corpuscular HGB Conc 32.7 g/dl (31.0-36.0); Mean Corpuscular Hemoglobin 28.1 pg (27.0-33.0); Mean Corpuscular Volume 85.7 fL (80.0-98.0); Monocytes Absolute Auto 0.8 X10*3/uL (0.1-1.2); Monocytes Percent Auto 8.6 % (2-11); Neutrophils Absolute Auto 4.6 x10*3/uL (2.0-8.3); Neutrophils Percent Auto 50.1 % (45-73); Platelet Count 213 X10*3/uL (160-400); Red Blood Count 5.31 X10*6/uL (4.60-5.80); Red Cell Distribution Width 13.6 % (11.0-16.0); White Blood Count 9.1 X10*3/uL (4.8-10.8)
[2022-08-09 05:39] LABS: Alanine Aminotransferase 24 U/L (0-40); Albumin Level 4.3 g/dL (3.5-5.0); Alkaline Phosphatase 125 U/L (39-117); Anion Gap 12 (12-20); Aspartate Amino Transferase 23 U/L (5-37); Bilirubin Direct 0.3 mg/dL (0.0-0.5); Bilirubin Total 1.3 mg/dL (0.0-1.0); Blood Urea Nitrogen 13 mg/dL (9-16); Calcium 9.1 mg/dL (8.4-10.2); Carbon Dioxide 26 mmol/L (22-29); Chloride 109 mmol/L (96-108); Estimated Glomerular Filt Rate 47; Glucose Random 146 mg/dL (60-115); Lipase 37 U/L (8-78); Potassium 4.2 mmol/L (3.3-5.1); Sodium 143 mmol/L (135-145); Total Protein 7.2 g/dL (6.5-8.0)
[2022-08-09 05:45] VITALS: BP 118/59; PULSE 65; RESP 14; TEMP 36.7; O2SAT 95
--- NOTE | 2022-08-09 06:13 | PC.NURSE ---
Pt ca&ox3, ambulates with a steady gait. sao tomean speaking only. Pt's spouse at bedside. Urine sample collected. Will continue to monitor.
[2022-08-09 06:15] LABS: Appearance Urine Clear; Color Urine Yellow; Glucose Urine UA Negative (Negative); Leukocyte Esterase Urine Negative (Negative); Nitrite Urine Negative (Negative); PH 5.5 (5.0-9.0); Specific Gravity - Urine 1.015 (1.005-1.025); UMIC TRIGGER UACC YES; Urine Blood Small (1+) (Negative); Urine Ketones Negative (Negative); Urine Protein Negative (Neg-Trace)
[2022-08-09 06:24] LABS: Bacteria Urine None Seen (None Seen); Hyaline Casts Urine 0-2 /LPF (0-2); RBC Urine 0-2 /HPF (0-2); Squamous Epithelial Cell Urine 0-2 /HPF (0-2); WBC Urine 0-5 /HPF (0-5)
--- NOTE | 2022-08-09 06:34 | ED.ABDPAIN ---
HPI - Abdominal Pain General Chief Complaint: Abdominal Pain Stated Complaint: side pain Time Seen by Provider: 08/09/22 06:32 Source: patient Mode of arrival: ambulatory Limitations: no limitations History of Present Illness HPI narrative: 52-year-old Andorran-speaking male with history of kidney stones, GERD, obesity, hypothyroidism, diabetes, status post cholecystectomy in the past who presents to the ER for evaluation of presents to the ER for evaluation of right flank pain that started at 04:00 today. Patient reports the pain was 9/10 and will come about a pain. He states it radiates from the middle of his right abdomen to the middle of his right back and flank. It is improved now and only a 5/10. It is a dull ache. He states he feels very similar to when he had kidney on his left side in the past. He also reports burning sensation when he urinates for the last 2 days. No hematuria, urgency, frequency. No fever or chills. He has had nausea but no vomiting or diarrhea. He is moving his bowels normally. MD elicited complaint: flank pain Pertinent past history: kidney stones Onset (ago): hour(s) (4) Pain Consistency: other (Improving) Location: R flank Severity: moderate Pain scale (0-10): 5 Quality: aching Radiation: back Migration to: no migration Relieving factors: nothing Context: history of similar episodes Associated symptoms: nausea Related Data Home Medications Medication Instructions Recorded Confirmed levothyroxine 112 mcg tablet 112 mcg PO DAILY 12/29/20 blood sugar diagnostic (FreeStyle #10 ea 07/05/21 Lite Strips) lancets 33 gauge (TRUEplus Lancets) #100 ea 07/05/21 levothyroxine 125 mcg tablet 125 mcg PO DAILY 07/05/21 dulaglutide 0.75 mg/0.5 mL mg subcut QWEEK 10/19/21 subcutaneous pen injector (Trulicity) lisinopril 5 mg tablet 5 mg PO DAILY 10/19/21 metformin 1,000 mg tablet 1,000 mg PO 10/19/21 methocarbamol 750 mg tablet 750 mg PO Q6H 10/19/21 Previous Rx's Medication Instructions Recorded tamsulosin 0.4 mg capsule (Flomax) 0.4 mg PO DAILY 14 days #14 caps 10/22/20 dicyclomine 20 mg tablet 20 mg PO QID 30 days #120 tabs 04/19/22 omeprazole 40 mg capsule,delayed 40 mg PO DAILY #30 caps 04/19/22 release sucralfate 1 gram tablet 2 g PO BID #120 ea 04/19/22 cefuroxime axetil 250 mg tablet 250 mg PO BID 7 days #14 tabs 08/09/22 Allergies Allergy/AdvReac Type Severity Reaction Status Date / Time No Known Allergies Allergy Verified 08/09/22 04:30 [No Known Allergies*] Review of Systems Review of Systems Yes all other systems are reviewed and are negative [facility] Past Medical History Medical History Cholecystectomy planned Thyroid activity decreased Surgical History History of cholecystectomy Family History Family History Father Diabetes High blood pressure Mother Hypothyroid High blood pressure Social History Social History Household Members: Spouse Alcohol intake: never Patient Tobacco Use Status: Never used Tobacco Smoked in Last 30 Days: No Use of substances other than those prescribed or required for medical reasons: No Advance Directives: No Advance Directives Information Provided: Yes Physical Exam ED Vital Signs: Vital Signs - 24 hr 08/09/22 04:30 08/09/22 05:45 08/09/22 09:04 Temperature 97.5 F 98.1 F 98.0 F Pulse Rate 73 65 63 Respiratory Rate 18 14 16 Blood Pressure 134/67 118/59 L 129/69 Pulse Oximetry 97 95 97 Oxygen Delivery Method Room Air Room Air Room Air BMI result Body Mass Index 41.0 Appearance: Alert. Oriented X3. No acute distress. Head: normocephalic, atraumatic. Eyes: Pupils equal, round and reactive to light. ENT: Pharynx normal. No tonsillar swelling or exudate. Neck: Normal inspection. Neck supple. CVS: Normal heart rate and rhythm. Pulses normal. Respiratory: No respiratory distress. Breath sounds normal. Abdomen: Soft and nontender. +BS x4. No CVA tenderness bilaterally. Skin: Skin warm and dry. Normal skin color. Normal skin turgor. No rashes. Extremities: No lower extremity edema. No joint swelling. Neuro/psych: Oriented X 3. No motor deficit. No sensory deficit. CN II-XII intact. Normal speech and cognition. Medical Decision Making Medical Decision Making [facility] Narrative: 52-year-old male with a history of diabetes, GERD, kidney stones, hypothyroidism who presents to the ER for evaluation of acute onset of right flank pain that started at 04:00 today. It is subsiding. It is associated with dysuria and nausea. His urinalysis had is positive for microscopic hematuria only. No other evidence of infection. His lab workup was unremarkable. His CT scan was reviewed, no evidence of obstructing kidney stone, ureteral stone, stone in the bladder or signs of a recently passed stone. Given the patient's symptoms of dysuria and hematuria in the urine today, will treat empirically for cystitis. Patient will follow-up with his primary care doctor and PCP. He was given return precautions. He is stable for discharge home. Differential Diagnosis Differential Diagnoses: The differential diagnosis associated with the presentation includes Acute nephrolithiasis, hydronephrosis, UTI, pyelonephritis, retained biliary stone, colitis Lab Data [facility] Lab Attestation statement: I reviewed the patient's lab results. Patient has CKD with baseline creatinine 1.5-1.7. LFTs and lipase unremarkable. No leukocytosis. No anemia. 08/09/22 05:05 08/09/22 05:05 Labs: Lab Results 08/09/22 08/09/22 08/09/22 Range/Units 05:05 05:05 06:07 WBC 9.1 (4.8-10.8) X10*3/uL RBC 5.31 (4.60-5.80) X10*6/uL Hgb 14.9 (14.0-18.0) g/dl Hct 45.5 (42.0-52.0) % MCV 85.7 (80.0-98.0) fL MCH 28.1 (27.0-33.0) pg MCHC 32.7 (31.0-36.0) g/dl RDW 13.6 (11.0-16.0) % Plt Count 213 (160-400) X10*3/uL MPV 12.0 (9.4-12.4) fL Immature Gran % (Auto) 0.2 (0.0-0.4) % Neut % (Auto) 50.1 (45-73) % Lymph % (Auto) 38.6 (20-40) % [place] % (Auto) 8.6 (2-11) % Eos % (Auto) 1.5 (0-4) % Baso % (Auto) 1.0 (0-2) % Lymph # (Auto) 3.5 (1.2-4.9) X10*3/uL [place] # (Auto) 0.8 (0.1-1.2) X10*3/uL Eos # (Auto) 0.1 (0.0-0.4) X10*3/uL Baso # (Auto) 0.1 (0.0-0.2) X10*3/uL Abs Immat Gran (auto) 0.02 (0.00-0.03) X10*3/uL Absolute Neuts (auto) 4.6 (2.0-8.3) x10*3/uL Absolute Nucleated RBC 0.000 (0.0-0.012) X10*3/uL Nucleated RBC % (auto) 0.0 (0.0-0.2) /100WBC Sodium 143 (135-145) mmol/L Potassium 4.2 (3.3-5.1) mmol/L Chloride 109 H (96-108) mmol/L Carbon Dioxide 26 (22-29) mmol/L Anion Gap 12 (12-20) BUN 13 (9-16) mg/dL Creatinine 1.56 H (0.5-1.4) mg/dL Estim Creat Clear Calc 78.0 Estimated GFR 47 Random Glucose 146 H (60-115) mg/dL Calcium 9.1 (8.4-10.2) mg/dL Total Bilirubin 1.3 H (0.0-1.0) mg/dL Direct Bilirubin 0.3 (0.0-0.5) mg/dL AST 23 (5-37) U/L ALT 24 (0-40) U/L Alkaline Phosphatase 125 H (39-117) U/L Total Protein 7.2 (6.5-8.0) g/dL Albumin 4.3 (3.5-5.0) g/dL Lipase 37 (8-78) U/L Urine Color Yellow Urine Appearance Clear Urine pH 5.5 (5.0-9.0) Ur Specific [place] 1.015 (1.005-1.025) Urine Protein Negative (Neg-Trace) mg/dL Urine Glucose (UA) Negative (Negative) mg/dL Urine Ketones Negative (Negative) mg/dL Urine Blood Small (1+) H (Negative) Urine Nitrite Negative (Negative) Ur Leukocyte Esterase Negative (Negative) Urine RBC 0-2 (0-2) /HPF Urine WBC 0-5 (0-5) /HPF Ur Squamous Epith Cells 0-2 (0-2) /HPF Urine Bacteria None Seen (None Seen) Hyaline Casts 0-2 (0-2) /LPF Independent Interpretation I performed an independent interpretation of an: CT Scan Interpretation: No hydronephrosis or kidney stones appreciated, agree with radiologist's read. Radiology Impression Discussion of test interpretation with radiology: I have reviewed the radiologist's reading. Radiologist Impression: CT/CT abdomen pelvis wo IV con IMPRESSION: 1.? No acute abnormalities identified. 2.? No urolithiasis. No hydronephrosis or ureterectasis. Normal appearance of the kidneys and ureters. 3.? Normal appearance of the appendix. No free intraperitoneal fluid or gas collections. 4.? Status post cholecystectomy. ? Independent Historian Clinical information obtained from an independent historian. History obtained from or confirmed by: Spouse External Record Review External record reviewed: Office record, Outpatient record, Prior outpatient labs and Prior outpatient radiology Prescription Management I considered prescription management with: Pain Medication and Antibiotic Chronic Conditions Patient?s care impacted by: Diabetes, Hypertension and Other (Kidney stones) Medications Administered Discontinued Medications Generic Name Dose Route Start Last Admin Trade Name Freq PRN Reason Stop Dose Admin Ketorolac Tromethamine 30 mg 08/09/22 08:10 08/09/22 09:02 Ketorolac Tromethamine 30 Mg/Ml Vial IM 08/09/22 08:11 30 mg ONCE ONE Administration Critical Care Time Critical Care Time Critical Care Time: No Discharge Plan Discharge Clinical Impression: Acute right flank pain, Microscopic hematuria Patient Disposition: Home, Self-Care Instructions: Flank Pain (ED) Additional Instructions: Your lab workup today was unremarkable. Your CT scan was normal, did not show any evidence of kidney stones. Your urine test had a microscopic amount of blood. Given your symptoms recommend you take the prescribed antibiotics for the next week. Follow-up with your primary care doctor and your urologist. If you develop new or worsening symptoms call 911 or come back to the ER for further evaluation. Tu an?lisis de laboratorio de hoy no tuvo nada especial. Torres tomograf?a computarizada fue normal, no mostr? ninguna evidencia de c?lculos renales. Torres an?lisis de orina ten?a matthew cantidad microsc?pica de roberto. Dados yoanna s?ntomas le recomendamos que tome los antibi?ticos prescritos osmin la pr?xima semana. Seguimiento con torres m?dico de atenci?n primaria y torres ur?logo. Si desarrolla s?ntomas nuevos o que empeoran, llame al 911 o regrese a la dena de emergencias para matthew evaluaci?n adicional. Prescriptions: New cefuroxime axetil 250 mg tablet 250 mg PO BID 7 Days Qty: 14 0RF No Action tamsulosin [Flomax] 0.4 mg capsule 0.4 mg PO DAILY 14 Days Qty: 14 0RF levothyroxine 112 mcg tablet 112 mcg PO DAILY Trulicity 0.75 mg/0.5 mL pen injector subcut QWEEK lisinopril 5 mg tablet 5 mg PO DAILY metformin 1,000 mg tablet 1,000 mg PO methocarbamol 750 mg tablet 750 mg PO Q6H levothyroxine 125 mcg tablet 125 mcg PO DAILY (DME) lancets [TRUEplus Lancets] 33 gauge misc See Rx Instructions Not Applicable DAILY Qty: 100 Rx Instructions: As directed (DME) FreeStyle Lite Strips Strip See Rx Instructions Not Applicable DAILY Qty: 10 Rx Instructions: As directed dicyclomine 20 mg tablet 20 mg PO QID 30 Days Qty: 120 6RF omeprazole 40 mg capsule,delayed release(DR/EC) 40 mg PO DAILY Qty: 30 6RF sucralfate 1 gram tablet 2 g PO BID Qty: 120 6RF Print Language: Andorran
[2022-08-09] MEDS: Ketorolac Tromethamine 30 MG/ML VIAL IM (09:02)
[2022-08-09 09:04] VITALS: BP 129/69; PULSE 63; RESP 16; TEMP 36.7; O2SAT 97
== END 2022-08-09 09:43 | disposition home or self-care (01) ==
PROVIDERS: Emergency Provider Emergency Medicine Emergency Medical Services
DX: R10.2 Pelvic and perineal pain (principal); R31.9 Hematuria, unspecified; Z79.899 Other long term (current) drug therapy
CPT/HCPCS: 36415; 74176; 80048; 80076; 81001; 83690; 85025; 96372; 99284; J1885

== ENCOUNTER 2022-10-18 09:38 | Outpatient (AMB) | payer MEDICAID, SELFPAY ==
--- NOTE | 2022-10-18 09:40 | MHC.OFFVIS ---
Intake Vital Signs 10/18/22 09:41 Height 5 ft 8 in Weight 298 lb 8.094 oz BMI 45.4 BP 127/64 Blood Pressure Location Rt brachial Position Sitting Pulse 71 Intake Visit Reasons: 6 month follow up Intake Note: Patient presents to in office visit today in 6 months follow up. Denies having any GI symptoms or concerns today. Drawing Frame Tender Required: Yes Allergies No Known Allergies [No Known Allergies*] Allergy (Verified 08/09/22 04:30) HPI 6 month follow up HPI Details Assessment & Plan (1) Bile salt-induced diarrhea: ?Code(s): K90.89 - Other intestinal malabsorption ?Plan: ?[place] #Mukesh Juárez He continues to do well on his GI medications. The only new medicine is Trulicity, which is causing him some bloating and early satiety. Counselled this is normal as his body adjusts to this medicine.? He continues on his omeprazole, Carafate and dicyclomine ROV 6 mos. (2) GERD (gastroesophageal reflux disease): ?Code(s): K21.9 - Gastro-esophageal reflux disease without esophagitis ? ? ? Medications: Changed From sucralfate 2 grams (2 x 1 gra m) PO BID 120 ea 6 RF K90.89 - Other int estinal malabsorpt ion ? To sucralfate 2 grams (2 x 1 gra m) PO BID 120 ea 6 RF K90.89 - Other int estinal malabsorpt ion ? Refilled dicyclomine 20 mg PO QID 120 t abs 6RF 30 days K21.9 - Gastro-eso phageal reflux dis ease without esoph agitis, K90.89 - O ther intestinal ma labsorption ? omeprazole 40 mg PO DAILY 30 caps 6RF K21.9 - Gastro-eso phageal reflux dis ease without esoph agitis, K90.89 - O ther intestinal ma labsorption ? TODAY'S VISIT [place] #Mukesh Silverman He continues to do well and his diarrhea and GERD are well controlled on his omeprazole, Carafate and dicyclomine. He has now it just to 2 his Trulicity dosing and is no longer having the GI side effects of bloating and nausea that we discussed at the last visit. He satisfied with his GI regimen and agreeable to a 6 month follow-up. [facility] Medical History (Updated 08/10/22 @ 00:01 by Casimiro Reynoso) Cholecystectomy planned Thyroid activity decreased Surgical History History of cholecystectomy Family History Father Diabetes High blood pressure Mother Hypothyroid High blood pressure Social History Household Members: Spouse Alcohol intake: never Patient Tobacco Use Status: Never used Tobacco Review of Systems Const Denies fatigue, Denies fever(s), Denies night sweats, Denies poor appetite and Denies weight loss Eyes Details: glasses Reports requires corrective lenses ENT Reports Normal hearing present, Denies dental pain, Denies dysphagia, Denies hearing loss, Denies mouth pain, Denies odynophagia, Denies throat swelling, Denies tongue swelling and Reports other (Dentition adequate) GI Denies abdominal pain, Denies melena, Denies bloating, Denies hematochezia, Denies constipation, Denies GI cramping, Denies dysphagia, Denies excessive flatus, Denies early satiety, Reports heartburn, Reports diarrhea, Denies nausea, Denies odynophagia, Denies vomiting and Denies hematemesis Skin/Breast Denies pruritus, Denies lesions, Denies rash and Denies jaundice Neuro Reports Normal hearing present and Denies Abnormal speech present Endo Denies fatigue Aller/Immun Denies throat swelling and Denies tongue swelling Physical Exam Const General: cooperative, no acute distress, well developed and well groomed Nutritional Appearance: well nourished and obese morbidly obese Orientation/consciousness: oriented to person, oriented to place and oriented to time Limitations: language barrier HEENT Head: Yes normocephalic and Yes atraumatic Eyes General: appearance normal, both eyes and all related structures Pupils: Equal, round and reactive pupils present Neck Neck: Yes normal visual inspection and Yes no lymphadenopathy Thyroid: Thyroid normal Resp Effort & Inspection: normal respiratory effort and able to speak in complete sentences Auscultation: clear to auscultation bilaterally Cardio Rate: regular rate Rhythm: regular rhythm Heart sounds: Normal, physiologic split S2 sound present Peripheral pulses: radial pulses present and posterior tibial pulses present GI Inspection: No distended, Yes Abdominal panniculus present and Yes obesity Palpation (GI): Soft to palpation, nontender, no guarding, not rigid and No hepatosplenomegaly present Percussion: Yes normal to percussion Auscultation: normal bowel sounds Rectal Exam - Male: Yes deferred Skin General skin exam: no rashes or lesions noted, turgor normal, skin not dry, no jaundice, No spider nevi and no striae Rashes: no rashes Nails: normal Neuro General: oriented to person, oriented to place and oriented to time Cranial nerves: Yes Equal, round and reactive pupils present and Yes Normal hearing present Speech: No Abnormal speech present Extrem General: Yes normal to inspection, No clubbing, No cyanosis and No edema Psych Appearance: grossly normal and well kempt Mental Status: mental status grossly normal Speech and movement: Normal speech and movement present Affect: normal affect Attitude: cooperative Thought process: Normal thought process present and not confabulating Thought content: Normal thought content present Insight: Fair insight present (Psych) Judgement: Fair judgement present (Psych) Assessment & Plan Assessment & Plan (1) GERD (gastroesophageal reflux disease): Code(s): K21.9 - Gastro-esophageal reflux disease without esophagitis Plan: [place] #Andra, Live He continues to do well and his diarrhea and GERD are well controlled on his omeprazole, Carafate and dicyclomine. He has now it just to 2 his Trulicity dosing and is no longer having the GI side effects of bloating and nausea that we discussed at the last visit. He satisfied with his GI regimen and agreeable to a 6 month follow-up. 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 (3) H/O colonoscopy: Code(s): Z98.890 - Other specified postprocedural states Medications: Refilled sucralfate 2 grams (2 x 1 gram) PO BID 120 ea 6RF K90.89 - Other intestinal malabsorption omeprazole 40 mg PO DAILY 30 caps 6RF K21.9 - Gastro-esophageal reflux disease without esophagitis, K90.89 - Other intestinal malabsorption dicyclomine 20 mg PO QID 30 days 120 tabs 6RF K21.9 - Gastro-esophageal reflux disease without esophagitis, K90.89 - Other intestinal malabsorption Coding Level of Care Code Est Pt Level 3 (80046) Diagnoses GERD (gastroesophageal reflux disease) K21.9 Bile salt-induced diarrhea K90.89 H/O colonoscopy Z98.890
[2022-10-18 09:41] VITALS: BP 127/64; PULSE 71; BMI 45.4
== END 2022-10-18 09:58 | disposition home or self-care (01) ==
PROVIDERS: Visit Provider Nurse Practitioner
DX: K21.9 Gastro-esophageal reflux disease without esophagitis (principal); K90.89 Other intestinal malabsorption; Z98.890 Other specified postprocedural states
CPT/HCPCS: 99213

== ENCOUNTER → 2022-10-18 09:38 | Outpatient (BNVA) | payer MEDICAID, SELFPAY | PROVIDERS: Visit Provider Nurse Practitioner | DX: K90.89 Other intestinal malabsorption (principal); K21.9 Gastro-esophageal reflux disease without esophagitis; Z79.899 Other long term (current) drug therapy; Z98.890 Other specified postprocedural states | CPT/HCPCS: 99213 ==

== ENCOUNTER 2023-04-19 09:28 | Outpatient (AMB) | payer MEDICAID, SELFPAY ==
[2023-04-19 09:43] VITALS: BP 140/71; PULSE 83; BMI 44.8
--- NOTE | 2023-04-19 09:43 | A.OFFVIS_ITS ---
Intake Vital Signs 04/19/23 09:43 Height 5 ft 8 in Weight 294 lb 15.656 oz BMI 44.8 BP 140/71 H Blood Pressure Location Rt brachial Position Sitting Pulse 83 Intake Visit Reasons: 6 month follow up Intake Note: Patient presents to in office visit today in 6 months follow up. CC: Patient reports doing well. Denies having any GI symptoms or concerns today. 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 He has now it just to 2 his Trulicity dosing and is no longer having the GI side effects of bloating and nausea that we discussed at the last visit. He satisfied with his GI regimen and agreeable to a 6 month follow-up. 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 (3) H/O colonoscopy: Code(s): Z98.890 - Other specified postprocedural states Medications: Refilled sucralfate 2 grams (2 x 1 gra m) PO BID 120 ea 6 RF K90.89 - Other int estinal malabsorpt ion omeprazole 40 mg PO DAILY 30 caps 6RF K21.9 - Gastro-eso phageal reflux dis ease without esoph agitis, K90.89 - O ther intestinal ma labsorption dicyclomine 20 mg PO QID 30 d ays 120 tabs 6RF K21.9 - Gastro-eso phageal reflux dis ease without esoph agitis, K90.89 - O ther intestinal ma labsorption TODAY'S VISIT [place] #Marquita Live He tells me that he just started a new insulin and when I inject it I have some stomach pain, but then it goes away. It seems this is Trulicity. He thinks that injecting in his arm makes the stomach pain better. Otherwise he is content with his current GI regimen which includes sucralfate, dicyclomine, and omeprazole. Return office visit in 6 months [facility] Medical History Cholecystectomy planned Thyroid activity decreased Surgical History History of cholecystectomy Family History Father Diabetes High blood pressure Mother Hypothyroid High blood pressure Social History Household Members: Spouse Alcohol intake: never Patient Tobacco Use Status: Never used Tobacco Review of Systems Const Denies fatigue, Denies fever(s), Denies night sweats, Denies poor appetite and Denies weight loss Eyes Details: glasses Reports requires corrective lenses ENT Reports Normal hearing present, Denies dental pain, Denies dysphagia, Denies hearing loss, Denies mouth pain, Denies odynophagia, Denies throat swelling, Denies tongue swelling and Reports other (Dentition adequate) Card Reports no additional complaints Resp Reports no additional complaints GI Details: Denies abdominal pain, Denies melena, Denies bloating, Denies hematochezia, Denies constipation, Reports GI cramping, Denies dysphagia, Denies excessive flatus, Denies early satiety, Reports heartburn, Reports diarrhea, Denies nausea, Denies odynophagia, Denies vomiting and Denies hematemesis Skin/Breast Denies pruritus, Denies lesions, Denies rash and Denies jaundice Neuro Reports Normal hearing present and Denies Abnormal speech present Endo Denies fatigue Aller/Immun Denies throat swelling and Denies tongue swelling Physical Exam Vital Signs: Last Vital Signs Pulse 83 04/19/23 09:43 BP 140/71 H 04/19/23 09:43 BMI result Body Mass Index 44.8 Const General: cooperative, no acute distress, well developed and well groomed Nutritional Appearance: well nourished and obese morbidly obese Orientation/consciousness: oriented to person, oriented to place and oriented to time Limitations: language barrier HEENT Head: Yes normocephalic and Yes atraumatic Eyes General: appearance normal, both eyes and all related structures Pupils: Equal, round and reactive pupils present Neck Neck: Yes normal visual inspection and Yes no lymphadenopathy Thyroid: Thyroid normal Resp Effort & Inspection: normal respiratory effort and able to speak in complete sen tences Auscultation: clear to auscultation bilaterally Cardio Rate: regular rate Rhythm: regular rhythm Heart sounds: Normal, physiologic split S2 sound present Peripheral pulses: radial pulses present and posterior tibial pulses present GI Inspection: No distended, Yes Abdominal panniculus present and Yes obesity Palpation (GI): Soft to palpation, nontender, no guarding, not rigid and No hepatosplenomegaly present Percussion: Yes normal to percussion Auscultation: normal bowel sounds Rectal Exam - Male: Yes deferred Skin General skin exam: no rashes or lesions noted, turgor normal, skin not dry, no jaundice, No spider nevi and no striae Rashes: no rashes Nails: normal Neuro General: oriented to person, oriented to place and oriented to time Cranial nerves: Yes Equal, round and reactive pupils present and Yes Normal hearing present Speech: No Abnormal speech present Extrem General: Yes normal to inspection, No clubbing, No cyanosis and No edema Psych Appearance: grossly normal and well kempt Mental Status: mental status grossly normal Speech and movement: Normal speech and movement present Affect: normal affect Attitude: cooperative Thought process: Normal thought process present and not confabulating Thought content: Normal thought content present Insight: Limited insight present (Psych) Judgement: Limited judgement present (Psych) Assessment & Plan Assessment & Plan (1) GERD (gastroesophageal reflux disease): Code(s): K21.9 - Gastro-esophageal reflux disease without esophagitis 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 It seems this is Trulicity. He thinks that injecting in his arm makes the stomach pain better. Otherwise he is content with his current GI regimen which includes sucralfate, dicyclomine, and omeprazole. Return office visit in 6 months Medications: Refilled sucralfate 2 grams (2 x 1 gram) PO BID 120 ea 6RF K90.89 - Other intestinal malabsorption omeprazole 40 mg PO DAILY 30 caps 6RF K21.9 - Gastro-esophageal reflux disease without esophagitis, K90.89 - Other intestinal malabsorption dicyclomine 20 mg PO QID 30 days 120 tabs 6RF K21.9 - Gastro-esophageal reflux disease without esophagitis, K90.89 - Other intestinal malabsorption Coding Level of Care Code Est Pt Level 3 (23963) Diagnoses GERD (gastroesophageal reflux disease) K21.9 Bile salt-induced diarrhea K90.89
== END 2023-04-19 10:01 | disposition home or self-care (01) ==
PROVIDERS: Visit Provider Nurse Practitioner
DX: K21.9 Gastro-esophageal reflux disease without esophagitis (principal); K90.89 Other intestinal malabsorption
CPT/HCPCS: 99213

== ENCOUNTER → 2023-04-19 09:28 | Outpatient (BNVA) | payer MEDICAID, SELFPAY | PROVIDERS: Visit Provider Nurse Practitioner | DX: K21.9 Gastro-esophageal reflux disease without esophagitis (principal); K90.89 Other intestinal malabsorption | CPT/HCPCS: 99212 ==

== ENCOUNTER 2023-05-14 09:29 | Outpatient (REF) | payer MEDICAID, SELFPAY | END 2023-05-14 09:30 | disposition home or self-care (01) | LOC: HO.CHCLDS 09:29 | PROVIDERS: Visit Provider Internal Medicine | DX: E04.1 Nontoxic single thyroid nodule (principal) | CPT/HCPCS: 36415; 84443 ==

== ENCOUNTER 2023-11-29 09:31 | Outpatient (AMB) | payer MEDICAID, SELFPAY ==
[2023-11-29 09:35] VITALS: BP 132/61; PULSE 67; BMI 44.2
--- NOTE | 2023-11-29 09:35 | A.OFFVIS_ITS ---
Vital Signs 11/29/23 09:35 Height 5 ft 8 in Weight 291 lb 0.163 oz BMI 44.2 BP 132/61 Blood Pressure Location Lt brachial Position Sitting Pulse 67 Intake Visit Reasons: 6 months follow up Intake Note: Theo returns to in office 6 months follow up of GERD. CC: Patient reports doing well and denies having any new GI concerns. 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 It seems this is Trulicity. He thinks that injecting in his arm makes the stomach pain better. Otherwise he is content with his current GI regimen which includes sucralfate, dicyclomine, and omeprazole. Return office visit in 6 months Medications: Refilled sucralfate 2 grams (2 x 1 gram) PO BID 120 ea 6RF K90.89 - Other intestinal malabsorption omeprazole 40 mg PO DAILY 30 caps 6RF K21.9 - Gastro-esophageal reflux disease without esophagitis, K90.89 - Other intestinal malabsorption dicyclomine 20 mg PO QID 30 days 120 tabs 6RF K21.9 - Gastro-esophageal reflux disease without esophagitis, K90.89 - Other intestinal malabsorption TODAY'S VISIT [place] #Desi and Zenon HE continues to do well on his Trulicity. He continues to do well on his GI regimen. His sucralfate, omeprazole once a day, and dicyclomine control his GI conditions well. He has no new health problems to report at this time. ROV 6 mos. REPLACED BY [facility] Medical History Cholecystectomy planned Thyroid activity decreased Surgical History History of cholecystectomy Family History Father Diabetes High blood pressure Mother Hypothyroid High blood pressure Social History Household Members: Spouse Alcohol intake: never Patient Tobacco Use Status: Never used Tobacco Review of Systems Const Denies fatigue, Denies fever(s), Denies night sweats, Denies poor appetite and Denies weight loss Eyes Details: glasses Reports requires corrective lenses ENT Reports Normal hearing present, Denies dental pain, Denies dysphagia, Denies hearing loss, Denies mouth pain, Denies odynophagia, Denies throat swelling, Denies tongue swelling and Reports other (Dentition adequate) Card Reports no additional complaints Resp Reports no additional complaints GI Details: Denies abdominal pain, Denies melena, Reports bloating, Denies hematochezia, Denies constipation, Reports GI cramping, Denies dysphagia, Denies excessive flatus, Denies early satiety, Reports heartburn, Denies diarrhea, Denies nausea, Denies odynophagia, Denies vomiting and Denies hematemesis Skin/Breast Denies pruritus, Denies lesions, Denies rash and Denies jaundice Neuro Reports Normal hearing present and Denies Abnormal speech present Endo Denies fatigue Aller/Immun Denies throat swelling and Denies tongue swelling Physical Exam Vital Signs: Last Vital Signs Pulse 67 11/29/23 09:35 BP 132/61 11/29/23 09:35 BMI result Body Mass Index 44.2 Const General: cooperative, no acute distress, well developed and well groomed Nutritional Appearance: well nourished and obese morbidly obese Orientation/consciousness: oriented to person, oriented to place and oriented to time Limitations: language barrier HEENT Head: Yes normocephalic and Yes atraumatic Eyes General: appearance normal, both eyes and all related structures Pupils: Equal, round and reactive pupils present Neck Neck: Yes normal visual inspection and Yes no lymphadenopathy Thyroid: Thyroid normal Resp Effort & Inspection: normal respiratory effort and able to speak in complete sentences Auscultation: clear to auscultation bilaterally Cardio Rate: regular rate Rhythm: regular rhythm Heart sounds: Normal, physiologic split S2 sound present Peripheral pulses: radial pulses present and posterior tibial pulses present GI Inspection: No distended, No Abdominal panniculus present and Yes obesity Palpation (GI): Soft to palpation, nontender, no guarding, not rigid and No hepatosplenomegaly present Percussion: Yes normal to percussion Auscultation: normal bowel sounds Rectal Exam - Male: Yes deferred Skin General skin exam: no rashes or lesions noted, turgor normal, skin not dry, no jaundice, No spider nevi and no striae Rashes: no rashes Nails: normal Neuro General: oriented to person, oriented to place and oriented to time Cranial nerves: Yes Equal, round and reactive pupils present and Yes Normal hearing present Speech: No Abnormal speech present Extrem General: Yes normal to inspection, No clubbing, No cyanosis and No edema Psych Appearance: grossly normal and well kempt Mental Status: mental status grossly normal Speech and movement: Normal speech and movement present Affect: normal affect Attitude: cooperative Thought process: Normal thought process present and not confabulating Thought content: Normal thought content present Insight: Fair insight present (Psych) Judgement: Fair judgement present (Psych) Assessment & Plan Assessment & Plan (1) GERD (gastroesophageal reflux disease): Code(s): K21.9 - Gastro-esophageal reflux disease without esophagitis Category: Medical 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 He continues to do well on his GI regimen. His sucralfate, omeprazole once a day, and dicyclomine control his GI conditions well. He has no new health problems to report at this time. ROV 6 mos. Medications: Refilled omeprazole 40 mg PO DAILY 30 caps 6RF K21.9 - Gastro-esophageal reflux disease without esophagitis, K90.89 - Other intestinal malabsorption sucralfate 2 grams (2 x 1 gram) PO BID 120 ea 6RF K90.89 - Other intestinal malabsorption dicyclomine 20 mg PO QID 120 tabs 6RF 30 days K21.9 - Gastro-esophageal reflux disease without esophagitis, K90.89 - Other intestinal malabsorption Coding Level of Care Code Est Pt Level 3 (09452) Diagnoses GERD (gastroesophageal reflux disease) K21.9 Bile salt-induced diarrhea K90.89
== END 2023-11-29 10:08 | disposition home or self-care (01) ==
PROVIDERS: Visit Provider Nurse Practitioner
DX: K21.9 Gastro-esophageal reflux disease without esophagitis (principal); K90.89 Other intestinal malabsorption
CPT/HCPCS: 99213

== ENCOUNTER → 2023-11-29 09:31 | Outpatient (BNVA) | payer MEDICAID, SELFPAY | PROVIDERS: Visit Provider Nurse Practitioner | DX: K21.9 Gastro-esophageal reflux disease without esophagitis (principal); K90.89 Other intestinal malabsorption | CPT/HCPCS: 99212 ==

== ENCOUNTER 2024-03-26 14:48 | Emergency (ER) | payer MEDICAID, SELFPAY ==
--- NOTE | ~2024-03-26 | XR_ITS ---
CLINICAL HISTORY: pain 1 view abdomen Comparison: None Findings: No pneumoperitoneum or pneumatosis. No dilated loops of bowel or evidence for bowel obstruction. No definite gas over the expected location of the rectum. Surgical clips are present over the right upper abdominal quadrant, possibly consistent with prior cholecystectomy. No acute fractures. IMPRESSION: 1. Nonobstructed bowel-gas pattern. This document has been electronically signed by: Jerome Valadez MD on 03/26/2024 22:41:47
[2024-03-26 14:57] VITALS: BP 136/57; PULSE 85; RESP 16; TEMP 36.6; O2SAT 97; BMI 43.0
[2024-03-26 15:32] LABS: MANUAL DIFF FLAG NO
[2024-03-26 15:45] LABS: Appearance Urine Clear; Color Urine Yellow; Glucose Urine UA Negative (Negative); Leukocyte Esterase Urine Negative (Negative); Nitrite Urine Negative (Negative); PH 6.5 (5.0-9.0); Urine Blood Negative (Negative); Urine Ketones Negative (Negative); Urine Protein Negative (Neg-Trace)
[2024-03-26 15:46] LABS: Basophils Absolute Auto 0.1 X10*3/uL (0.0-0.2); Basophils Percent Auto 0.6 % (0-2); Eosinophils Absolute Auto 0.1 X10*3/uL (0.0-0.4); Eosinophils Percent Auto 0.8 % (0-4); Hematocrit 47.5 % (42.0-52.0); Hemoglobin 15.8 g/dl (14.0-18.0); Imm Gran Abs Auto 0.04 X10*3/uL (0.00-0.03); Imm Gran Pct Auto 0.4 % (0.0-0.4); Lymphocytes Absolute Auto 2.5 X10*3/uL (1.2-4.9); Lymphocytes Percent Auto 26.1 % (20-40); Mean Corpuscular HGB Conc 33.3 g/dl (31.0-36.0); Mean Corpuscular Hemoglobin 28.8 pg (27.0-33.0); Mean Corpuscular Volume 86.5 fL (80.0-98.0); Mean Platelet Volume 11.8 fL (9.4-12.4); Monocytes Absolute Auto 0.8 X10*3/uL (0.1-1.2); Monocytes Percent Auto 8.7 % (2-11); Neutrophils Percent Auto 63.4 % (45-73); Platelet Count 234 X10*3/uL (160-400); Red Blood Count 5.49 X10*6/uL (4.60-5.80); Red Cell Distribution Width 13.4 % (11.0-16.0); White Blood Count 9.5 X10*3/uL (4.8-10.8)
[2024-03-26 16:01] LABS: Alanine Aminotransferase 33 U/L (0-40); Albumin Level 4.3 g/dL (3.5-5.0); Alkaline Phosphatase 97 U/L (39-117); Anion Gap 8 (12-20); Aspartate Amino Transferase 26 U/L (5-37); Bilirubin Direct 0.4 mg/dL (0.0-0.5); Bilirubin Total 1.5 mg/dL (0.0-1.0); Blood Urea Nitrogen 12 mg/dL (9-16); Calcium 8.6 mg/dL (8.4-10.2); Carbon Dioxide 26 mmol/L (22-29); Chloride 110 mmol/L (96-108); Creatinine Clr Calc Pharmacy 107.7; Estimated Glomerular Filt Rate > 60; Glucose Random 89 mg/dL (60-115); Lipase 29 U/L (8-78); Potassium 4.1 mmol/L (3.3-5.1); Sodium 140 mmol/L (135-145); Total Protein 7.8 g/dL (6.5-8.0)
--- NOTE | 2024-03-26 21:09 | ED_ITS ---
HPI - Abdominal Pain General Chief Complaint: Abdominal Pain Stated Complaint: Abd pain R side Time Seen by Provider: 03/26/24 21:40 Source: patient Limitations: no limitations History of Present Illness ED Provider: Danni Dupree PA-C HPI narrative: 53-year-old male with a history of morbid obesity, kidney stones, GERD, presents abdominal pain x3 days. Pain over right mid abdomen with radiation to mid back at times. Pain fluctuates in intensity in his intermittent. Associated nausea at times. Denies dysuria, hematuria or fever. Denies diarrhea. Patient is status post cholecystectomy greater than 9 years ago. Patient denies that he is constipated. Related Data Home Medications ?Medication ?Instructions ?Recorded ?Confirmed blood sugar diagnostic (FreeStyle #10 ea 07/05/21 Lite Strips) lancets 33 gauge (TRUEplus Lancets) #100 ea 07/05/21 levothyroxine 125 mcg tablet 125 mcg PO DAILY 07/05/21 lisinopril 5 mg tablet 5 mg PO DAILY 10/19/21 dulaglutide 1.5 mg/0.5 mL mg subcut QWEEK 11/29/23 subcutaneous pen injector (Trulicity) duloxetine 20 mg capsule,delayed 20 mg PO BID 11/29/23 release Previous Rx's ?Medication ?Instructions ?Recorded dicyclomine 20 mg tablet 20 mg PO QID 30 days #120 tabs 11/29/23 omeprazole 40 mg capsule,delayed 40 mg PO DAILY #30 caps 11/29/23 release sucralfate 1 gram tablet 2 g (2 x 1 gram) PO BID #120 ea 11/29/23 Allergies Allergy/AdvReac Type Severity Reaction Status Date / Time No Known Allergies Allergy Verified 03/26/24 15:01 [No Known Allergies*] Review of Systems Review of Systems Yes all other systems are reviewed and are negative Constitutional: Denies fatigue and Denies fever(s) Cardiovascular: Denies chest pain and Denies dyspnea Respiratory: Denies cough and Denies dyspnea Gastrointestinal: Reports abdominal pain, Denies constipation, Denies diarrhea, Reports nausea and Denies vomiting Genitourinary: Denies dysuria Endocrine: Denies fatigue PMFSH Past Medical History Attestation statement: The following information was validated with the patient. Medical History Cholecystectomy planned Thyroid activity decreased Surgical History History of cholecystectomy Family History Family History Father Diabetes High blood pressure Mother Hypothyroid High blood pressure Social History Social History Household Members: Spouse Alcohol intake: never Patient Tobacco Use Status: Never used Tobacco Physical Exam ED Vital Signs: Vital Signs - 24 hr 03/26/24 14:57 03/26/24 22:28 03/26/24 23:57 Temperature 97.8 F 97.9 F 98.0 F Pulse Rate 85 70 70 Respiratory Rate 16 14 16 Blood Pressure 136/57 L 145/95 H 140/90 H Pulse Oximetry 97 97 97 Oxygen Delivery Method Room Air Room Air Room Air 03/26/24 23:59 Temperature 98.0 F Pulse Rate 70 Respiratory Rate 16 Blood Pressure 140/90 H Pulse Oximetry 97 Oxygen Delivery Method Room Air BMI result Body Mass Index 43.0 Const Other: Alert well-appearing Orientation/consciousness: patient oriented x3 Resp Effort & Inspection: normal respiratory effort Cardio Other: Normal peripheral perfusion GI Other: Abdomen is soft, nondistended obese, nontender no guarding Skin Other: Warm dry no rash Neuro General: patient oriented x3, gait normal, no focal motor deficits and CN's II- XI intact bilaterally Psych Other: Calm cooperative Medical Decision Making Medical Decision Making MDM Narrative: 53-year-old male with a history of morbid obesity, kidney stones, GERD, presents abdominal pain x3 days. Pain over right mid abdomen with radiation to mid back at times. Pain fluctuates in intensity in his intermittent. Associated nausea at times. Denies dysuria, hematuria or fever. Denies diarrhea. Patient is status post cholecystectomy greater than 9 years ago. Patient denies that he is constipated. Problem: Morbid obesity kidney stones History: Per patient I have considered the following differential diagnoses: Choledocholithiasis, renal colic, gastritis, constipation, appendicitis Plan: Given right-sided symptoms, thought about choledocholithiasis, however his cholecystectomy is remote. Likewise thought about appendicitis, however there was no pain in the right lower quadrant. Thought about renal colic, however he has no symptoms, no CVA tenderness, urine collected in his clean. Other screening labs have been process as well and are unremarkable. He is likely constipated despite the fact that he denies constipation. We will obtain a KUB. I have independently reviewed the following tests: Labs: No leukocytosis, not anemic, no electrolyte abnormality, LFTs normal, urine not Infected no hematuria KUB:Findings: No pneumoperitoneum or pneumatosis. No dilated loops of bowel or evidence for bowel obstruction. No definite gas over the expected location of the rectum. Surgical clips are present over the right upper abdominal quadrant, possibly consistent with prior cholecystectomy. No acute fractures. IMPRESSION: 1. Nonobstructed bowel-gas pattern. This document has been electronically signed by: Jerome Valadez MD on 03/26/2024 22:41:47 Lab Data 03/26/24 15:28 03/26/24 15:28 Labs: Lab Results 03/26/24 03/26/24 Range/Units 15:28 15:35 WBC 9.5 (4.8-10.8) X10*3/uL RBC 5.49 (4.60-5.80) X10*6/uL Hgb 15.8 (14.0-18.0) g/dl Hct 47.5 (42.0-52.0) % MCV 86.5 (80.0-98.0) fL MCH 28.8 (27.0-33.0) pg MCHC 33.3 (31.0-36.0) g/dl RDW 13.4 (11.0-16.0) % Plt Count 234 (160-400) X10*3/uL MPV 11.8 (9.4-12.4) fL Immature Gran % (Auto) 0.4 (0.0-0.4) % Neut % (Auto) 63.4 (45-73) % Lymph % (Auto) 26.1 (20-40) % [place] % (Auto) 8.7 (2-11) % Eos % (Auto) 0.8 (0-4) % Baso % (Auto) 0.6 (0-2) % Lymph # (Auto) 2.5 (1.2-4.9) X10*3/uL [place] # (Auto) 0.8 (0.1-1.2) X10*3/uL Eos # (Auto) 0.1 (0.0-0.4) X10*3/uL Baso # (Auto) 0.1 (0.0-0.2) X10*3/uL Abs Immat Gran (auto) 0.04 H (0.00-0.03) X10*3/uL Absolute Neuts (auto) 6.0 (2.0-8.3) x10*3/uL Absolute Nucleated RBC 0.000 (0.0-0.012) X10*3/uL Nucleated RBC % (auto) 0.0 (0.0-0.2) /100WBC Sodium 140 (135-145) mmol/L Potassium 4.1 (3.3-5.1) mmol/L Chloride 110 H (96-108) mmol/L Carbon Dioxide 26 (22-29) mmol/L Anion Gap 8 L (12-20) BUN 12 (9-16) mg/dL Creatinine 1.08 (0.5-1.4) mg/dL Estim Creat Clear Calc 107.7 Estimated GFR > 60 Random Glucose 89 (60-115) mg/dL Calcium 8.6 (8.4-10.2) mg/dL Total Bilirubin 1.5 H (0.0-1.0) mg/dL Direct Bilirubin 0.4 (0.0-0.5) mg/dL AST 26 (5-37) U/L ALT 33 (0-40) U/L Alkaline Phosphatase 97 (39-117) U/L Total Protein 7.8 (6.5-8.0) g/dL Albumin 4.3 (3.5-5.0) g/dL Lipase 29 (8-78) U/L Urine Color Yellow Urine Appearance Clear Urine pH 6.5 (5.0-9.0) Ur Specific [place] 1.020 (1.005-1.025) Urine Protein Negative (Neg-Trace) mg/dL Urine Glucose (UA) Negative (Negative) mg/dL Urine Ketones Negative (Negative) mg/dL Urine Blood Negative (Negative) Urine Nitrite Negative (Negative) Ur Leukocyte Esterase Negative (Negative) Attestation Attending Attestation: I was personally present and available for consultation in the ED. I have reviewed everything on the chart that is available and agree with the documentation provided by the JESSIE including discussion about the assessment, treatment plan and discussion. Based on medical record the care appears appropriate. Julien Islas MD [facility] Emergency Medicine Discharge Plan Discharge Clinical Impression: Abdominal pain Patient Disposition: Home, Self-Care Instructions: Abdominal Pain (ED) Additional Instructions: All of your labs including the urinalysis were completely normal. The x-ray of your abdomen was normal as well. We do not have a reason for your discomfort. Return precautions for onset of severe constant pain, intractable vomiting or fever. Otherwise you can follow up with your primary care provider. Prescriptions: No Action lisinopril 5 mg tablet 5 mg PO DAILY levothyroxine 125 mcg tablet 125 mcg PO DAILY (DME) lancets [TRUEplus Lancets] 33 gauge misc See Rx Instructions Not Applicable DAILY Qty: 100 Rx Instructions: As directed (DME) FreeStyle Lite Strips Strip See Rx Instructions Not Applicable DAILY Qty: 10 Rx Instructions: As directed Trulicity 1.5 mg/0.5 mL pen injector subcut QWEEK duloxetine 20 mg capsule,delayed release(DR/EC) 20 mg PO BID omeprazole 40 mg capsule,delayed release(DR/EC) 40 mg PO DAILY Qty: 30 6RF sucralfate 1 gram tablet 2 g PO BID Qty: 120 6RF dicyclomine 20 mg tablet 20 mg PO QID 30 Days Qty: 120 6RF Interventions: ED Discharge Assessment Last Done: 03/26/24 23:57 Discharge Date/Time: 03/27/24 00:01 Print Language: Slovenian
[2024-03-26 22:28] VITALS: BP 145/95; PULSE 70; RESP 14; TEMP 36.6; O2SAT 97
--- NOTE | 2024-03-26 22:45 | PC.NURSE ---
Patient awake and alert. skin pwd, resp even and non labored, speaking in full, clear sentences. denies pain at this time. awaiting results of KUB
[2024-03-26 23:57] VITALS: BP 140/90; PULSE 70; RESP 16; TEMP 36.7; O2SAT 97
[2024-03-26 23:59] VITALS: BP 140/90; PULSE 70; RESP 16; TEMP 36.7; O2SAT 97
== END 2024-03-27 00:01 | disposition home or self-care (01) ==
PROVIDERS: Emergency Provider Emergency Medicine Emergency Medical Services; PCP Internal Medicine
DX: R10.2 Pelvic and perineal pain (principal); M54.50 Low back pain, unspecified; R11.0 Nausea; E66.01 Morbid (severe) obesity due to excess calories; Z68.41 Body mass index [BMI] 40.0-44.9, adult; Z79.899 Other long term (current) drug therapy
CPT/HCPCS: 36415; 74018; 80048; 80076; 81003; 83690; 85025; 99283; 99284

== ENCOUNTER 2024-04-22 11:33 | Outpatient (REF) | payer MEDICAID, SELFPAY ==
--- NOTE | ~2024-04-22 | US_ITS ---
CLINICAL HISTORY: right flank pain. Please rule out nephrolithiasis. US Renal Comparison: None Findings: Right kidney normal size and echotexture, 12.8 cm length. Left kidney normal size and echotexture, 12.4 cm length. No hydronephrosis of either kidney. Normal color Doppler IMPRESSION: 1. Normal kidneys. This document has been electronically signed by: Virgilio Jean-Baptiste MD on 04/22/2024 15:53:24
--- OUTSIDE RECORDS SUMMARY | 2024-04-22 13:25 | XMS_ITS | Encounter Summary ---
Author Organization [employer] Address [address] [place] [address] 7 [place] [address] Care Team Providers Care Service Plumber Name Role Phone Clayton Hackett MD Primary Care Provider +1- [phone] Reason for Visit * Reason Comments Med Refill Encounter Details Date Type Department Care Team ([facility] [place] Contact Info) Description 04/16/2022 Refill [facility] [address] [place] [address] Clayton Hackett MD [address] [place] [address] Essential hypertension (Primary Dx) Social History Tobacco Use Types Packs/Day Years Used Date Smoking Tobacco: Never Passive Smoke Exposure: Never Smokeless Tobacco: Never Alcohol Use Standard Drinks/Week Comments Never 0 (1 standard drink = 0.6 oz pur e alcohol) Sex and Gender Information Value Date Recorded Sex Assigned at Male 01/08/2022 10:28 AM EDT Legal Sex Male 10:28 AM EDT Gender Identity Male 01/08/2022 10:28 AM EDT Sexual Orientation Straight 01/08/2022 10 :28 AM EDT COVID-19 Exposure Response Date Recorded In the last 10 days, have yo u been in contact with someone who was confirmed or suspected to have Coronavirus/COVID-19? No / Unsure 03/25/2022 8:09 PM EST documented as of this encounter Plan of Treatment Upcoming Encounters Date Type Department Care Team ([facility] [place] Contact Info) Description 06/09/2024 9:45 AM EDT Office Visit [facility] [address] [place], [place] [phone] Clayton Hackett MD [address] [place], [place] [phone] 06/10/2024 3:00 PM EDT Office Visit [facility] OPTOMETRY [address] [place] [address] Rosy Sevilla, OD [address] [place] [address] documented as of this encounter Visit Diagnoses Diagnosis Essential hypertension- Primary Unspecified essential hypertension documented in this encounter Care Teams Service Plumber Relationship Specialty Start Date End Date Clayton Hackett MD [address] [place] [address] PCP - General Internal Medicine 01/06/15 documented as of this encounter
--- OUTSIDE RECORDS SUMMARY | 2024-04-22 13:25 | XMS_ITS | Encounter Summary ---
Author Organization [employer] Address [address] [facility] 7 [place] [address] Care Team Providers Care Cardiopulmonary Technologist Chief Name Role Phone Clayton Hackett MD Primary Care Provider [phone]- [phone] Reason for Visit * Reason Onset Date Comments Durable Medical Equipment 06/04/2023 Encounter Details Date Type Department Care Team (Late st Contact Info) Description 06/04/2023 Telephone [facility] MEDIC[facility] [address] [place] [address] Clayton Hackett MD [address] [place] [address] Durable Medical Equipment Social History Tobacco Use Types Packs/Day Years Used Date Smoking Tobacco: Never Passive Smoke Exposure: Never Smokeless Tobacco: Never Alcohol Use Standard Drinks/Week Comments Never 0 (1 standard drink = 0.6 oz pur e alcohol) Depression Answer Date Recorded Patient Health Questionnaire-9 Score 17 08/23/2022 Depression Answer Date Recorded Patient Health Questionnaire-2 Score 5 08/23/2022 Sex and Gender Information Value Date Recorded Sex Assigned at Male 01/08/2022 10:28 AM EDT Legal Sex Male 10:28 AM EDT Gender Identity Male 01/08/2022 10:28 AM EDT Sexual Orientation Straight 01/08/2022 10 :28 AM EDT documented as of this encounter Miscellaneous Notes * Telephone Encounter - Sheila Clinton LPN - 06/04/2023 12:50 PM EDT Please review message below & advise . Thank you. * Telephone Encounter - Carmen Naik - 06/04/2023 11:20 AM EDT Tc from requesting DME (Compression socks) documented in this encounter Plan of Treatment Upcoming Encounters Date Type Department Care Team (Late st Contact Info) Description 06/09/2024 9:45 AM EDT Office Visit [facility] MED & PEDS [address] [place] [address] Clayton Hackett MD [address] [place], [place] [phone] 06/10/2024 3:00 PM EDT Office Visit [facility] OPTOMETRY [address] [place], [place] [phone] Roel, Rosy, OD [address] [place] [address] documented as of this encounter Visit Diagnoses Not on filedocumented in this encounter Additional Health Concerns Assessment Noted Time PHQ-9 Depression Total Score: 17 023 1:24 PM EDT documented as of this encounter Care Teams Cardiopulmonary Technologist Chief Relationship Specialty Start Date End Date Clayton Hackett MD [address] [place] [address] PCP - General Internal Medicine 01/06/15 documented as of this encounter
--- OUTSIDE RECORDS SUMMARY | 2024-04-22 13:25 | XMS_ITS | Encounter Summary ---
Author Organization [employer] Address [address] [place] [address] Care Team Providers Care Athletic Equipment Custodian Name Role Phone Clayton Hackett MD Primary Care Provider +1- [phone] Encounter Details Date Type Department Care Team (Latest Contact Info) Description 06/21/2020 Abstract [facility] CONVERSIONS Dental, Provider, DDS Social History Tobacco Use Types Packs/Day Years Used Date Smoking Tobacco: Never Assessed Sex and Gender Information Value Date Recorded Sex Assigned at Male 01/08/2022 10:28 AM EDT Legal Sex Male 10:28 AM EDT Gender Identity Male 01/08/2022 10:28 AM EDT Sexual Orientation Straight 01/08/2022 10 :28 AM EDT documented as of this encounter Plan of Treatment Upcoming Encounters Date Type Department Care Team (Late st Contact Info) Description 06/09/2024 9:45 AM EDT Office Visit [facility] MED & PEDS [address] [place] [address] Clayton Hackett MD [address] [place] [address] 06/10/2024 3:00 PM EDT Office Visit [facility] OPTOMETRY [address] [place] [address] Rosy Sevilla, OD [address] [place] [address] documented as of this encounter Visit Diagnoses Not on filedocumented in this encounter Care Teams Athletic Equipment Custodian Relationship Specialty Start Date End Date Clayton Hackett MD [address] [place] [address] PCP - General Internal Medicine 01/06/15 documented as of this encounter
--- OUTSIDE RECORDS SUMMARY | 2024-04-22 13:25 | XMS_ITS | Encounter Summary ---
Author Organization [employer] Address [address] [place] [address] [place], [place] [address] Care Team Providers Care Careers Counsellor Name Role Phone Clayton Hackett MD Primary Care Provider Encounter Details Date Type Department Care Team (Latest Contact Info) Description 04/10/2018 Abstract [facility] CONVERSIONS Dental, Provider, DDS Social History Tobacco [...] Description 06/09/2024 9:45 AM EDT Office Visit [facility] PEDS [address] [place] [address] Clayton Hackett MD [address] [place] [address] 06/10/2024 3:00 PM EDT Office Visit [facility] OPTOMET[facility] [address] [place] [address] Rosy Sevilla, OD [address] [place] [address] documented as of this encounter Visit Diagnoses Not on filedocumented in this encounter Care Teams Careers Counsellor Relationship Specialty Start Date End Date Clayton Hackett MD [address] [place] [address] PCP - General Internal Medicine 01/06/15 documented as of this encounter
--- OUTSIDE RECORDS SUMMARY | 2024-04-22 13:25 | XMS_ITS | Encounter Summary ---
Author Organization [employer] Address [address] [place] [address] [address] [place] [address] Care Team Providers Care Dolphin Trainer Name Role Phone Clayton Hackett MD Primary Care Provider [phone]- [phone] Reason for Referral * Imaging (Routine) - Authorized Specialty Diagnoses / Procedures Referred By Contac t Referred To Contact Radiology Diagnoses Muscle spasm Right flank pain Procedures US RENAL BI Clayton Hackett MD [address] [place] [address] Phone: tel: fax: [address] Phone: tel: fax: Referral ID Status Reason Start Date Expiration Date V isits Requested Visits Authorized [id number] Authorized 04/07/2024 04/07/2025 1 1 Reason for Visit * Reason Comments ER Follow-up Encounter Details Date Type Department Care Team (Late st Contact Info) Description 04/07/2024 2:15 PM EST Office Visit [facility] MED & PEDS [address] [place] [address] Clayton Hackett MD [address] [place] [address] Muscle spasm (Primary Dx); Right flank pain Social History Tobacco Use Types Packs/Day Years Used Date Smoking Tobacco: Never Passive Smoke Exposure: Never Smokeless Tobacco: Never Alcohol Use Standard Drinks/Week Comments Never 0 (1 standard drink = 0.6 oz pur e alcohol) Depression Answer Date Recorded Patient Health Questionnaire-9 Score 0 04/07/2024 Patient Health Questionnaire-9 Score 0 04/07/2024 Last PHQ-9: Questionnaire Data Not on file 0 04/07/2024 Housing Stability Answer Date Recorded What is your housing situation today? I have benjamin diallo 04/07/[address] you li ve. Do you have problems with any of the following? None of the above 04/07/2024 Food Insecurity Answer Date Recorded Within the past 12 months, y ou worried that your food would run out before you got money to buy more: Never True 04/07/2024 Within the past 12 months,th e food you bought just didn't last and you didn't have enough money to get more: Never True Transportation Answer Date Recorded In the past 12 months, has l ack of transportation kept you from medical appts, meetings, work or from getting things needed for daily living? No 04/07/2024 Utilities Answer Date Recorded In the past 12 months, has t he electric, gas, oil or water company threatened to shut off services in your home? No 04/07/2024 Depression Answer Date Recorded Patient Health Questionnaire-2 Score 0 04/07/2024 Internet Access Answer Date Recorded Internet Access Q1 Yes 04/07/2024 Internet Access Q2 Not on file 04/07/2024 Sex and Gender Information Value Date Recorded Sex Assigned at Male 01/08/2022 10:28 AM EDT Legal Sex Male 10:28 AM EDT Gender Identity Male 01/08/2022 10:28 AM EDT Sexual Orientation Straight 01/08/2022 10 :28 AM EDT documented as of this encounter Last Filed Vital Signs Vital Sign Reading Time Taken Comments Blood Pressure 136/74 04/07/2024 1:50 PM EST Pulse 82 04/07/2024 1:50 PM EST Temperature 37.1 ??C (98.8 ??F) 04/07/2024 1:50 PM ES T Respiratory Rate 20 04/07/2024 1:50 PM EST Oxygen Saturation 98% 04/07/2024 1:50 PM EST Inhaled Oxygen Concentration - - Weight 132 kg (290 lb 6.4 oz) 04/07/2024 1:50 PM EST Height 177.8 cm (5' 10 ) 04/07/2024 1:50 PM EST Body Mass Index 41.67 04/07/2024 1:50 PM EST documented in this encounter Progress Notes * Clayton Hackett MD - 04/07/2024 2:15 PM EST Subjective Patient ID: Theo Pearson is a 53 y.o. male who presents for ER Follow-up. ER Follow-up Associated symptoms include abdominal pain. Pertinent negatives include no arthralgias, chills, coughing or diaphoresis. Evaluated in the emergency department at [facility] on March 26, 2024 for 3 weeks history of right flank pain radiating to the right upper quadrant. The pain was reported as intermittent was associated with nausea at times. No history of diarrhea. Patient is s/p cholecystectomy more than 9 years ago. Denies constipation. KUB unremarkable. Not suggestive of constipation. Labs: No leukocytosis, no anemia, no electrolyte abnormalities, normal LFTs. Patient was discharged with recommendation to follow-up with PCP. Patient is still having the abdominal pain since his discharge and is exacerbated by movements especially bending forward and reaching overhead. Denies hematuria. Denies constipation. She reports that the pain feels like when he is having nephrolithiasis. Patient Active Problem List Diagnosis Acquired hypothyroidism Anxiety Hematuria Kidney stone Simple obesity Type 2 diabetes mellitus ([facility]) Essential hypertension Periodontal disease Dental calculus Missing teeth, acquired Open fracture of tooth Moderate depressive disorder Current Outpatient Medications on File Prior to Visit Medication Sig Dispense Refill acetaminophen (Tylenol) 500 MG tablet Take 1 tablet (500 mg) by mouth every 6 (six) hours if neededfor mild pain for up to 20 doses. 20 tablet 0 chlorhexidine (Peridex) 0.12 % solution Swish 15 mL morning and night for 1 minute. Spit, do not swallow. Do not eat or drink for 30 minutes following use. 473 mL 0 diclofenac (Cataflam) 50 MG tablet Take 1 tablet (50 mg) by mouth every 8 (eight) hours. 30 tablet 3 Diclofenac Sodium 1 % gel To apply to the affected area 3 times a day 100 g 0 dicyclomine (Bentyl) 20 MG tablet TAKE ONE TABLET FOUR TIMES DAILY DULoxetine (Cymbalta) [address] capsule Take 1 capsule (20 mg) by mouth 2 times daily. Do not crush or chew. 60 capsule 11 fluticasone (Flonase Allergy Relief) 50 MCG/ACT nasal spray Administer 2 sprays into affected nostril(s) in the morning. gabapentin (Neurontin) 100 MG capsule Take 1 capsule (100 mg) by mouth in the morning. 1 capsule atbedtime 30 capsule 11 glucose blood (FREESTYLE LITE) test strip TEST BLOOD SUGAR EVERY DAY 50 strip 7 hydrocortisone (Anusol-HC) 2.5 % rectal cream Insert into the rectum 2 times daily. 28 g 1 levothyroxine (Synthroid, Levoxyl) 125 MCG tablet TAKE ONE TABLET BY MOUTH EVERY MORNING 90 tablet 3 lisinopril 5 MG tablet TAKE ONE TABLET DAILY 90 tablet 1 loratadine (Claritin) 10 MG tablet Take 1 tablet by mouth in the morning. meloxicam (Mobic) 15 MG tablet Take 1 tablet (15 mg) by mouth Once per day. 30 tablet 11 methocarbamol (Robaxin) 750 MG tablet Take 1 tablet by mouth every 6 (six) hours. omeprazole (PriLOSEC) [address] capsule Take 40 mg by mouth in the morning. polyvinyl alcohol (Artificial Tears) 1.4 % ophthalmic solution one drop in each eye 3 times a day pseudoephedrine (Sudafed) 30 MG tablet Take 1 tablet (30 mg) by mouth every 4 (four) hours if needed for congestion for up to 10 days. 30 tablet 0 sucralfate (Carafate) 1 g tablet TAKE TWO TABLETS TWICE DAILY tamsulosin (Flomax) 0.4 MG 24 hr capsule Take 1 capsule by mouth at bed time. tiZANidine (Zanaflex) 2 MG tablet Take 1 tablet by mouth every 12 (twelve) hours. TRUEplus Lancets 33G misc TEST BLOOD SUGAR ONCE DAILY DIRECTED 100 each 5 Trulicity 3 MG/0.5ML solution auto-injector INJECT 3mg's SUBCUTANEOUSLY ONCE PER WEEK [DISCONTINUED] dulaglutide (Trulicity) 3 MG/0.5ML solution pen-injector Inject 3 mg under the skin 1 (one) time per week. 4 each 11 No current facility-administered medications on file prior to visit. No Known Allergies Review of Systems Constitutional: Negative for appetite change, chills and diaphoresis. Respiratory: Negative for cough, choking and chest tightness. Gastrointestinal: Positive for abdominal pain. Negative for abdominal distention. Genitourinary: Positive for flank pain. Negative for frequency, genital sores and hematuria. Musculoskeletal: Negative for arthralgias and back pain. Objective Physical Exam Constitutional: General: He is not in acute distress. Appearance: Normal appearance. He is obese. He is not ill-appearing, toxic- appearing or diaphoretic. Cardiovascular: Rate and Rhythm: Normal rate. Heart sounds: No murmur heard. Pulmonary: Effort: Pulmonary effort is normal. Breath sounds: Normal breath sounds. Musculoskeletal: Comments: Tenderness to palpation of the right flank. No skin rash. Skin: Findings: No rash. Neurological: Mental Status: He is alert. Assessment/Plan Diagnoses and all orders for this visit: Muscle spasm - celecoxib (CeleBREX) 200 MG capsule; Take 1 capsule (200 mg) by mouth 2 times daily. - methocarbamol (Robaxin) 750 MG tablet; Take 1 tablet (750 mg) by mouth 4 times daily for 10 days. - US RENAL BI; Future Right flank pain Comments: Possible nephrolithiasis Advised to increase fluid intake Medication as prescribed Patient will be contacted with the results of renal US Orders: - celecoxib (CeleBREX) 200 MG capsule; Take 1 capsule (200 mg) by mouth 2 times daily. - methocarbamol (Robaxin) 750 MG tablet; Take 1 tablet (750 mg) by mouth 4 times daily for 10 days. - US RENAL BI; Future documented in this encounter Plan of Treatment Upcoming Encounters Date Type Department Care Team (Late st Contact Info) Description 06/09/2024 9:45 AM EDT Office Visit [facility] MED & PEDS [address] [place] [address] Clayton Hackett MD [address] [place] [address] 06/10/2024 3:00 PM EDT Office Visit [facility] OPTOMETRY [address] [place] [address] Rosy Sevilla, OD [address] [place] [address] Scheduled Orders Name Type Priority Associated Diagnoses Orde r Schedule US RENAL BI Imaging Routine Muscle spasm Right flank pain Expected: 04/07/2024, Expires: 04/07/2025 documented as of this encounter Visit Diagnoses Diagnosis Muscle spasm- Primary Spasm of muscle Right flank pain Abdominal pain, unspecified site documented in this encounter Additional Health Concerns Assessment Noted Time PHQ-9 Depression Total Score: 0 04/07/19 25 1:51 PM EST documented as of this encounter Care Teams Dolphin Trainer Relationship Specialty Start Date End Date Clayton Hackett MD [address] [place] [address] PCP - General Internal Medicine 01/06/15 documented as of this encounter
--- OUTSIDE RECORDS SUMMARY | 2024-04-22 13:25 | XMS_ITS | Encounter Summary ---
Author Organization [employer] Address [address] [facility] 7 [place] [address] Care Team Providers Care Line And Frame Poler Name Role Phone Clayton Hackett MD Primary Care Provider [phone]- [phone] Reason for Visit * Reason Onset Date Comments Appointment 03/28/2022 Patient delvin lisa p appt for 03/[address] Melendez. Please call patient back to rs. SHAY Encounter Details Date Type Department Care Team (Late st Contact Info) Description 03/28/2022 Telephone [facility] [address] [place] [address] Forrest Melendez, JAVAD [address] [place], [place] [phone] Appointment (Patient cant keep appt for 03/[address] Melendez. Please call patient back to rs. SHAY) Social History Tobacco Use Types Packs/Day Years [...] PM EST documented as of this encounter Miscellaneous Notes * Telephone Encounter - Tata Barrera - 03/28/2022 1:05 PM EST Patient cant keep appt for 03/[address] Melendez. Please call patient back to rsAgustín SHAY documented in this encounter Plan of Treatment Upcoming Encounters Date Type Department Care Team (Late st Contact Info) Description 06/09/2024 9:45 AM EDT Office Visit [facility] MED & PEDS [address] [place] [address] Clayton Hackett MD [address] [place] [address] 06/10/2024 3:00 PM EDT Office Visit [facility] OPTOMETRY [address] [place] [address] Rosy Sevilla, OD [address] [place] [address] documented as of this encounter Visit Diagnoses Not on filedocumented in this encounter Care Teams Line And Frame Poler Relationship Specialty Start Date End Date Clayton Hackett MD [address] [place] [address] PCP - General Internal Medicine 01/06/15 documented as of this encounter
--- OUTSIDE RECORDS SUMMARY | 2024-04-22 13:25 | XMS_ITS | Encounter Summary ---
Author Organization [employer] Address [address] [place] [address] [address], [place] [address] Care Team Providers Care Drying And Winding Supervisor Name Role Phone Clayton Hackett MD Primary Care Provider Encounter Details Date Type Department Care Team (Latest Contact Info) Description 04/02/2018 Abstract [facility] CONVERSIONS Dental, Provider, DDS Social History Tobacco [...] Description 06/09/2024 9:45 AM EDT Office Visit [facility] MED & PEDS [address] [place] [address] Clayton Hackett MD [address] [place] [address] 06/10/2024 3:00 PM EDT Office Visit [facility] OPTOMETRY [address] [place] [address] Rosy Sevilla, OD [address] [place] [address] documented as of this encounter Visit Diagnoses Not on filedocumented in this encounter Care Teams Drying And Winding Supervisor Relationship Specialty Start Date End Date Clayton Hackett MD [address] [place] [address] PCP - General Internal Medicine 01/06/15 documented as of this encounter
--- OUTSIDE RECORDS SUMMARY | 2024-04-22 13:25 | XMS_ITS | Encounter Summary ---
Author Organization [employer] Address [address] [place] [address] Care Team Providers Care Corrections Sergeant Name Role Phone Clayton Hackett MD Primary Care Provider [phone]- [phone] Encounter Details Date Type Department Care Team ([facility] Contact Info) Description 06/12/2023 Orders Only [facility] CHC MED & PEDS [address] [place] [address] Clayton Hackett MD [address] [place] [address] Social History Tobacco Use Types Packs/Day Years [...] Upcoming Encounters Date Type Department Care Team ([facility] Contact Info) Description 06/09/2024 9:45 AM EDT Office Visit [facility] MED & PEDS [address] [place], [place] [phone] Claytno Hackett MD [address] [place] [address] 06/10/2024 3:00 PM EDT Office Visit [facility] OPTOMETRY [address] [place], [place] [phone] RoelRosy souza, OD [address] [place], [place] [phone] documented as of this encounter Visit Diagnoses Not on filedocumented in this encounter Additional Health Concerns Assessment Noted Time PHQ-9 Depression Total Score: 17 023 1:24 PM EDT documented as of this encounter Care Teams Corrections Sergeant Relationship Specialty Start Date End Date Clayton Hacektt MD [address] [place] [address] PCP - General Internal Medicine 01/06/15 documented as of this encounter
--- OUTSIDE RECORDS SUMMARY | 2024-04-22 13:25 | XMS_ITS | Encounter Summary ---
Author Organization [employer] Address [address] [place] [address], [place] [address] Care Team Providers Care Lay Out Inspector Name Role Phone Clayton Hackett MD Primary Care Provider Encounter Details Date Type Department Care Team (Latest Contact Info) Description 04/08/2019 Abstract [facility] CONVERSIONS Dental, Provider, DDS Social History Tobacco [...] Description 06/09/2024 9:45 AM EDT Office Visit [facility] MED & PEDS [address] [place] [address] Clayton Hackett MD [address] [place] [address] 06/10/2024 3:00 PM EDT Office Visit [facility] OPTOMETRY [address] [place] [address] Rosy Sevilla, OD [address] [place] [address] documented as of this encounter Visit Diagnoses Not on filedocumented in this encounter Care Teams Lay Out Inspector Relationship Specialty Start Date End Date Clayton Hackett MD [address] [place] [address] PCP - General Internal Medicine 01/06/15 documented as of this encounter
--- OUTSIDE RECORDS SUMMARY | 2024-04-22 13:25 | XMS_ITS | Encounter Summary ---
Author Organization [employer] Address [address] [place] [address] Care Team Providers Care Repair Armature Winder Helper Name Role Phone Clayton Hackett MD Primary Care Provider [phone]- [phone] Encounter Details Date Type Department Care Team ([facility] Contact Info) Description 12/11/2023 [facility] Only [facility] Information Management [address] [place], [place] [phone] ProviderYenni MD Social History Tobacco Use Types Packs/Day Years Used Date Smoking Tobacco: Never Passive Smoke Exposure: Never Smokeless Tobacco: Never Alcohol Use Standard Drinks/Week Comments Never 0 (1 standard drink = 0.6 oz pur e alcohol) Depression Answer Date Recorded Patient Health Questionnaire-9 Score 11 10/07/2023 Patient Health Questionnaire-9 Score 11 10/07/2023 Last PHQ-9: Questionnaire Data Not on file 0 10/07/2023 Depression Answer Date Recorded Patient Health Questionnaire-2 Score 1 10/07/2023 Sex and Gender Information Value Date Recorded Sex Assigned at Male 01/08/2022 10:28 AM EDT Legal Sex Male 10:28 AM EDT Gender Identity Male 01/08/2022 10:28 AM EDT Sexual Orientation Straight 01/08/2022 10 :28 AM EDT documented as of this encounter Plan of Treatment Upcoming Encounters Date Type Department Care Team ([facility] Contact Info) Description 06/09/2024 9:45 AM EDT Office Visit [facility] CHC MED & PEDS [address] [place], [place] [phone] Clayton Hackett MD [address] [place] [address] 06/10/2024 3:00 PM EDT Office Visit [facility] OPTOMETRY [address] [place] [address] RoelRosy, OD [address] [place] [address] documented as of this encounter Procedures Procedure Name Priority Date/Time Associated Diagnosis Comments COLONOSCOPY Routine 10/04/2021 11:25 AM EDT documented in this encounter Results * Colonoscopy (10/04/2021 11:25 AM EDT) Anatomical Region Laterality Modality Endoscopy us Historical Provider ENDOSCOPY PROCEDURE ORDER MARY Final Result documented in this encounter Visit Diagnoses Not on filedocumented in this encounter Additional Health Concerns Assessment Noted Time PHQ-9 Depression Total Score: 11 024 9:54 AM EDT documented as of this encounter Care Teams Repair Armature Winder Helper Relationship Specialty Start Date End Date Clayton Hackett MD [address] [place] [address] PCP - General Internal Medicine 01/06/15 documented as of this encounter
--- OUTSIDE RECORDS SUMMARY | 2024-04-22 13:25 | XMS_ITS | Encounter Summary ---
Author Organization [employer] Address [address] [facility] 7t [place] [address] Care Team Providers Care Veteran Appeals Reviewer Name Role Phone Clayton Hackett MD Primary Care Provider [phone] [phone] Encounter Details Date Type Department Care Team (Latest Contact Info) Description 04/07/2024 Travel Social History Tobacco Use Types Packs/Day Years [...] Description 06/09/2024 9:45 AM EDT Office Visit [facility] CHC MED & PEDS [address] [place] [address] Clayton Hackett MD [address] [place] [address] 06/10/2024 3:00 PM EDT Office Visit [facility] OPTOMETRY [address] [place] [address] Roel, Rosy, OD [address] [place] [address] documented as of this encounter Visit Diagnoses Not on filedocumented in this encounter Additional Health Concerns Assessment Noted Time PHQ-9 Depression Total Score: 0 04/07/19 25 1:51 PM EST documented as of this encounter Care Teams Veteran Appeals Reviewer Relationship Specialty Start Date End Date Clayton Hackett MD [address] [place] [address] PCP - General Internal Medicine 01/06/15 documented as of this encounter
--- OUTSIDE RECORDS SUMMARY | 2024-04-22 13:25 | XMS_ITS | Encounter Summary ---
Author Organization [employer] Address [address] [place] [address] [place] [address] Care Team Providers Care Help Desk Operator Name Role Phone Clayton Hackett MD Primary Care Provider Reason for Visit * Reason Comments Med Refill Encounter Details Date Type Department Care Team (Late Contact Info) Description 08/23/2023 Refill [facility] CHC MED & PEDS [address] [place] [address] Clayton Hackett MD [address] [place] [address] Type 2 diabetes mellitus with hyperglycemia (CMS/HCC) Social History Tobacco Use Types Packs/Day Years Used Date Smoking Tobacco: Never Passive Smoke Exposure: Never Smokeless Tobacco: Never Alcohol Use Standard Drinks/Week Comments Never 0 (1 standard drink = 0.6 oz pur e alcohol) Depression Answer Date Recorded Patient Health Questionnaire-9 Score 15 07/25/2023 Patient Health Questionnaire-9 Score 15 07/25/2023 Last PHQ-9: Questionnaire Data Not on file 0 07/25/2023 Depression Answer Date Recorded Patient Health Questionnaire-2 Score 4 07/25/2023 Sex and Gender Information Value Date Recorded Sex Assigned at Male 01/08/2022 10:28 AM EDT Legal Sex Male 10:28 AM EDT Gender Identity Male 01/08/2022 10:28 AM EDT Sexual Orientation Straight 01/08/2022 10 :28 AM EDT documented as of this encounter Plan of Treatment Upcoming Encounters Date Type Department Care Team (Late Contact Info) Description 06/09/2024 9:45 AM EDT Office Visit [facility] CHC MED & PEDS [address] [place] [address] Clayton Hackett MD [address] [place] [address] 06/10/2024 3:00 PM EDT Office Visit [facility] OPTOMETRY [address] [place] [address] RoelRosy souza, OD [address] [place] [address] documented as of this encounter Visit Diagnoses Diagnosis Type 2 diabetes mellitus with hyperglycemia (CMS/HCC) documented in this encounter Additional Health Concerns Assessment Noted Time PHQ-9 Depression Total Score: 15 024 10:35 AM EDT documented as of this encounter Care Teams Help Desk Operator Relationship Specialty Start Date End Date Clayton Hackett MD [address] [place] [address] PCP - General Internal Medicine 01/06/15 documented as of this encounter
--- OUTSIDE RECORDS SUMMARY | 2024-04-22 13:25 | XMS_ITS | Clinical Summary ---
Author Organization [facility] Address [address] [place] [address] Care Team Providers Care Commercial Production Editor Name Role Phone Clayton Hackett MD Primary Care Provider Allergies No known active allergies Medications cyclobenzaprin e (FLEXERIL) 10 MG tablet Take 10 mg by mouth in the morning and 10 mg at noon and 10 mg in the evening. 5 Active levothyroxine (SYNTHROID, LEVOTHROID) 88 MCG tablet Take 1 tablet by mouth 1 (one) time each day 5 Active TRUEplus Lancets 33G misc TEST BLOOD SUGAR ONCE DAILY DIRECTED 2 Active FREESTYLE LITE test strip TEST BLOOD SUGAR ONCE DAILY DIRECTED 2 Active Trulicity 0.75 MG/0.5ML solution pen-injector INJECT ONE PEN (=0.75MG) SUBCUTANEOUSLY ONCE A WEEK DIRECTED 2 Active lisinopril 5 MG tablet Take 5 mg by mouth 1 (one) time each day 2 Active omeprazole (PriLOSEC) [address] capsule Take 40 mg by mouth 1 (one) time each day 2 Active sucralfate (CARAFATE) 1 g tablet TAKE TWO TABLETS TWICE DAILY 2 Active Active Problems Problem Noted Date Diagnosed Date Acute nontraumatic kidney injury 01/03/2022 Hematuria, not otherwise specified 11/06/2021 Personal history of kidney stones 11/06/2021 Family History Medical History Relation Comments Diabetes Father Hypertension Father Hypertension Mother Hypothyroidism Mother Relation Status Comments Father Mother Social History Tobacco Use Types Packs/Day Years Used Date Smoking Tobacco: Never Smokeless Tobacco: Never Tobacco Cessation:Counseling Given: Not Answered Alcohol Use Standard Drinks/Week Comments Never 0 (1 standard drink = 0.6 oz pur e alcohol) Sex and Gender Information Value Date Recorded Sex Assigned at Not on file Legal Sex Male 4:18 PM EDT Gender Identity Not on file Sexual Orientation Not on file Last Filed Vital Signs Vital Sign Reading Time Taken Comments Blood Pressure 132/68 01/04/2022 11:16 AM EDT Pulse 74 01/04/2022 11:16 AM EDT Temperature - - Respiratory Rate - - Oxygen Saturation 98% 01/04/2022 11:16 AM EDT Inhaled Oxygen Concentration - - Weight 137 kg (302 lb) 01/04/2022 11:16 AM EDT Height - - Body Mass Index - - Plan of Treatment Health Maintenance Due Date Last Done Comments Pneumococcal Vaccine: Pediat rics (0 to 5 Years) and At-Risk Patients (6 to 64 Years) (1 of 2 - PCV) 08/08/1977 Hepatitis B Vaccine (1 of 3 - 19+ 3-dose series) 08/08 Colorectal Cancer Screening: Annual FOBT 08/08/2020 Colorectal Cancer Screening: Colonoscopy 08/08/2020 Colorectal Cancer Screening: Sigmoidoscopy 08/08/2020 Influenza Vaccine (#1) 2023 Insurance [place] Care Teams Commercial Production Editor Relationship Specialty Start Date End Date Clayton Hackett MD [address] [place] [phone] PCP - General Internal Medicine 07/12/21
--- OUTSIDE RECORDS SUMMARY | 2024-04-22 13:25 | XMS_ITS | Encounter Summary ---
Author Organization [employer] Address [address] [facility] 7 [place] [address] Care Team Providers Care Technical Specialist Cytology Name Role Phone Clayton Hackett MD Primary Care Provider [phone]- [phone] Reason for Visit * Reason Onset Date Comments Nurse Triage 03/31/2024 Encounter Details Date Type Department Care Team ([facility] st Contact Info) Description 03/31/2024 Telephone [facility] MEDICINE [address] [place] [address] Clayton Hackett MD [address] [place] [address] Nurse Triage Social History Tobacco Use Types Packs/Day Years Used Date Smoking Tobacco: Never Passive Smoke Exposure: Never Smokeless Tobacco: Never Alcohol Use Standard Drinks/Week Comments Never 0 (1 standard drink = 0.6 oz pur e alcohol) Depression Answer Date Recorded Patient Health Questionnaire-9 Score 12 02/11/2024 Patient Health Questionnaire-9 Score 12 02/11/2024 Last PHQ-9: Questionnaire Data Not on file 1 04/13/2023 Depression Answer Date Recorded Patient Health Questionnaire-2 Score 6 02/11/2024 Sex and Gender Information Value Date Recorded Sex Assigned at Male 01/08/2022 10:28 AM EDT Legal Sex Male 10:28 AM EDT Gender Identity Male 01/08/2022 10:28 AM EDT Sexual Orientation Straight 01/08/2022 10 :28 AM EDT documented as of this encounter Miscellaneous Notes * Telephone Encounter - Maye Dyer RN - 03/31/2024 11:53 AM EST Call returned to Theo Pearson to triage below. No outside deliverer needed as this copy writer speaks Tajik. Reports having upper back pain x 4 days. Per pt seen at [facility] ED for this pain. Per patient pain starts at back and radiates to lower right abdomen into leg. Pt having urinary frequency. No painwhen passing urine, odor or dark/cloudy color. Denies any N/V or fever. Denies any constipation or d iarrhea. Pt has used bentyl with mild relief. No OTC pain relievers used. Having intermittent numbness of right leg. Pt advised of disposition, agrees to seek [facility] for exam as no sick on site availability on teams at time of call. Reviewed [facility] operating hours and that wait times vary. Reviewed home care advise, ER precautions and reasons to call back. Protocol Used: Back Pain (Adult) Protocol-Based Disposition: See in Office or Video Visit Today Positive Triage Question: * Numbness in a leg or foot (i.e., loss of sensation) * All higher-acuity triage questions were negative Care Advice Discussed: * Reassurance and Education - Back Pain * Reasons To Call Back - Fever occurs - You become worse * Telephone Encounter - Nat Marquez - 03/31/2024 11:43 AM EST Symptom: Back Pain - Not From Injury Outcome: Talk to a nurse or provider within 15 minutes Reason: Can't walk (unless normally can't walk) The caller accepted this outcome. [phone] slovenian documented in this encounter Plan of Treatment Upcoming Encounters Date Type Department Care Team (Late st Contact Info) Description 06/09/2024 9:45 AM EDT Office Visit [facility] MED & PEDS [address] [place] [address] Clayton Hackett MD [address] [place] [address] 06/10/2024 3:00 PM EDT Office Visit [facility] OPTOMETRY [address] [place] [address] Rosy Sevilla, OD [address] [place] [address] documented as of this encounter Visit Diagnoses Not on filedocumented in this encounter Additional Health Concerns Assessment Noted Time PHQ-9 Depression Total Score: 12 024 1:43 PM EST documented as of this encounter Care Teams Technical Specialist Cytology Relationship Specialty Start Date End Date Clayton Hackett MD [address] [place] [address] PCP - General Internal Medicine 01/06/15 documented as of this encounter
--- OUTSIDE RECORDS SUMMARY | 2024-04-22 13:25 | XMS_ITS | Encounter Summary ---
Author Organization [employer] Address [address] [place] [address] [place] [address] Care Team Providers Care Embossing Machine Tender Name Role Phone Clayton Hackett MD Primary Care Provider Reason for Visit * Reason Comments Med Refill Encounter Details Date Type Department Care Team (Late Contact Info) Description 08/16/[address] [facility] CHC MED & PEDS [address] [place] [address] Clayton Hackett MD [address] [place] [address] Type 2 diabetes mellitus with hyperglycemia (CMS/HCC) [...] Description 06/09/2024 9:45 AM EDT Office Visit [facility] CHC MED & PEDS [address] [place] [address] Clayton Hackett MD [address] [place] [address] 06/10/2024 3:00 PM EDT Office Visit [facility] OPTOMETRY [address] [place] [address] RoelRosy souza, OD [address] [place] [address] documented as of this encounter Visit Diagnoses Diagnosis Type 2 diabetes mellitus with hyperglycemia (CMS/HCC) documented in this encounter Additional Health Concerns Assessment Noted Time PHQ-9 Depression Total Score: 15 024 10:35 AM EDT documented as of this encounter Care Teams Embossing Machine Tender Relationship Specialty Start Date End Date Clayton Hackett MD [address] [place] [address] PCP - General Internal Medicine 01/06/15 documented as of this encounter
--- OUTSIDE RECORDS SUMMARY | 2024-04-22 13:26 | XMS_ITS | Encounter Summary ---
Author Organization [employer] Address [address] [place] [address] [address] [place] [address] Care Team Providers Care Service Learning Coordinator Name Role Phone Clayton Hackett MD Primary Care Provider [phone]- [phone] Reason for Visit * Reason Comments Med Refill Encounter Details Date Type Department Care Team ([facility] Contact Info) Description 04/18/2022 Refill [facility] MED & PEDS [address] [place] [address] Clayton Hackett MD [address] [place] [address] Acquired hypothyroidism (Primary Dx) Social History Tobacco Use Types [...] Upcoming Encounters Date Type Department Care Team ([facility] Contact Info) Description 06/09/2024 9:45 AM EDT Office Visit [facility] CHC MED & PEDS [address] [place], [place] [phone] Clayton Hackett MD [address] [place], [place] [phone] 06/10/2024 3:00 PM EDT Office Visit [facility] OPTOMETRY [address] [place] [address] Rosy Sevilla, OD [address] [place] [address] documented as of this encounter Visit Diagnoses Diagnosis Acquired hypothyroidism- Primary Unspecified hypothyroidism documented in this encounter Care Teams Service Learning Coordinator Relationship Specialty Start Date End Date Clayton Hackett MD [address] [place], [place] [phone] PCP - General Internal Medicine 01/06/15 documented as of this encounter
--- OUTSIDE RECORDS SUMMARY | 2024-04-22 13:26 | XMS_ITS | Encounter Summary ---
Author Organization [employer] Address [address] [place] [address] Care Team Providers Care Glass Mechanic Name Role Phone Clayton Hackett MD Primary Care Provider [phone]- [phone] Encounter Details Date Type Department Care Team ([facility] Contact Info) Description 03/26/2024 Orders Only GENERIC EXTERNAL DATA DEPARTMENT Provider, Generic External Data Social History Tobacco Use Types Packs/Day Years [...] Upcoming Encounters Date Type Department Care Team ([facility] Contact Info) Description 06/09/2024 9:45 AM EDT Office Visit [facility] MED & PEDS [address] [place] [address] Clayton Hackett MD [address] [place] [address] 06/10/2024 3:00 PM EDT Office Visit [facility] OPTOMETRY [address] [place] [address] Roel, Rosy, OD [address] [place] [address] documented as of this encounter Procedures Procedure Name Priority Date/Time Associated Diagnosis Comments XR KUB AND UPRIGHT 2 VIEWS Routine 03/26/2024 10:41 PM EST URINALYSIS WITH REFLEX MICROSCOPIC Routine 03/26/2024 3:35 PM EST CBC WITH AUTO DIFFERENTIAL Routine 03/26/2024 3:28 PM EST LIPASE Routine 03/26/2024 3:28 PM EST HEPATIC FUNCTION PANEL Routine 03/26/2024 3:28 PM EST BASIC METABOLIC PANEL Routine 03/26/2024 3:28 PM EST documented in this encounter Results * XR KUB and Upright 2 Views (03/26/2024 10:41 PM EST) Anatomical Region Laterality Modality Radiographic Bridget ging 03/26/2024 10:4 1 PM EST Narrative 03/26/2024 10:44 PM EST ? [facility] ?[address] ?[place] [address] ?XRay Report ? Signed ? Patient: Flores,Theo ?MR#: [id number] ? : 1970 ?Acct:[id number] ? Age/Sex: 53 / M ?ADM Date: 01/16/25 ? Loc: HO.ED ? Attending Dr: ? Ordering Physician: Danni Dupree ?? Date of Service: 03/26/24 ?? Procedure(s): XR KUB ?? Accession Number(s): [id number] ? cc: Clayton Hackett MD; Danni Dupree ? CLINICAL HISTORY: pain ? 1 view abdomen ? Comparison: None ? Findings: ?? No pneumoperitoneum or pneumatosis. No dilated loops of bowel or evidence ?? for bowel obstruction. No definite gas over the expected location of the ?? rectum. ?? Surgical clips are present over the right upper abdominal quadrant, ?? possibly consistent with prior cholecystectomy. ?? No acute fractures. ? IMPRESSION: ?? 1. Nonobstructed bowel-gas pattern. ? This document has been electronically signed by: Jerome Valadez MD on ?? 03/26/2024 22:41:47 ? Dictated By: ?Jerome Valadez MD ? Signed By: ?<Electronically signed by Jerome Valadez MD in OV> ? 03/26/24 2243 ? DD/ 40 ? TD/TT: 03/26/242240 ? Waste Chopper: ? Procedure Note Doncarlosisaacambreenter, Image - 03/26/2024 [place] [address] XRay Report Signed Patient: Theo FloresMR#: [id number] : 1970Acct:[id number] Age/Sex: 53 / MADM Date: 03/26/24 Loc: HO.ED Attending Dr: Ordering Physician: Danni Dupree Date of Service: 03/26/24 Procedure(s): XR KUB Accession Number(s): [id number] cc: Clayton Hackett MD; Danni Dupree CLINICAL HISTORY: pain 1 view abdomen Comparison: None Findings: No pneumoperitoneum or pneumatosis. No dilated loops of bowel or evidence for bowel obstruction. No definite gas over the expected location of the rectum. Surgical clips are present over the right upper abdominal quadrant, possibly consistent with prior cholecystectomy. No acute fractures. IMPRESSION: 1. Nonobstructed bowel-gas pattern. This document has been electronically signed by: Jerome Valadez MD on 03/26/2024 22:41:47 Dictated By: Jerome Valadez MD Signed By: <Electronically signed by Jerome Valadez MD in OV> 03/26/242242 DD/ 40 TD/TT: 03/26/242240 Waste Chopper: [facility] External Provider IMG XR PROCEDURES Final Result * Urinalysis w/reflex microscopic (03/26/2024 3:35 PM EST) Color Urine Yellow [facility] Appearance Urine Clear [facility] PH 6.5 5.0 - 9.0 [facility] Glucose Urine UA Negative Negative mg/dL [facility] Urine Blood Negative Negative [facility] Specific [place] - Urine 1.020 1.005 - 1.025 [facility] Urine Protein Negative Neg-Trace mg/dL [facility] Urine Ketones Negative Negative mg/dL [facility] Nitrite Urine Negative Negative [facility] Leukocyte Esterase Urine Negative Negative [facility] 03/26/2024 3:35 PM EST 03/26/2024 3:42 PM EST Narrative [facility] - 03/26/2024 3:46 PM EST [id number], Clean Catch Generic External Data Provider LAB URINE ORDERAB LES Final Result Performing Organization Address [facility]/ZIP Co de Phone Number [facility] [address] [place] [phone] * Lipase (03/26/2024 3:28 PM EST) Pathologist [facility] Lipase 29 8 - 78 U/L [facility] 03/26/2024 3:28 PM EST 03/26/2024 3:30 PM EST Generic External Data Provider LAB BLOOD ORDERAB LES Final Result Performing Organization Address [facility] Co de Phone Number [facility] [address] [place] [phone] * (ABNORMAL) Basic Metabolic Panel (03/26/2024 3:28 PM EST) Pathologist [facility] Sodium 140 135 - 145 mmol/L [facility] Potassium 4.1 3.3 - 5.1 mmol/L [facility] Chloride 110(H) 96 - 108 mmol/L [facility] Carbon Dioxide 26 22 - 29 mmol/L [facility] Anion Gap 8(L) 12 - 20 [facility] Urea Nitrogen (BUN) 12 9 - 16 mg/dL [facility] Creatinine, Serum 1.08 0.5 - 1.4 mg/dL [facility] Creatinine Clr Calc Pharmacy 107.7 [facility] Comment:eGFR (calculated fro m the MDRD study equation) and eCrCl(calculated from the Cockcroft-Gault equation) are based ondifferent parameters and may not yield comparable results.If eCrCl result is absurd, please check patient'sheight/weight. Estimated Glomerular Filt Rate >60 [facility] Comment:Chronic Kidney Disea se: Estimated GFR < 60 mL/min/1.46b2Iozzha Kidney Disease: Estimated GFR < 15 mL/min/1.73m2 Glucose 89 60 - 115 mg/dL [facility] Calcium 8.6 8.4 - 10.2 mg/dL [facility] 03/26/2024 3:28 PM EST 03/26/2024 3:30 PM EST us Generic External Data Provider LAB BLOOD ORDERAB LES Final Result [facility] [address] [place] [phone] * (ABNORMAL) Hepatic Function Panel (03/26/2024 3:28 PM EST) Bilirubin, Total 1.5(H) 0.0 - 1.0 mg/dL [facility] Bilirubin, Direct 0.4 0.0 - 0.5 mg/dL [facility] Aspartate Amino Transferase 26 5 - 37 U/L [facility] Alanine Aminotransferase 33 0 - 40 U/L [facility] Total Protein 7.8 6.5 - 8.0 g/dL [facility] Albumin Level 4.3 3.5 - 5.0 g/dL [facility] Alkaline Phosphatase 97 39 - 117 U/L [facility] 03/26/2024 3:28 PM EST 03/26/2024 3:30 PM EST us Generic External Data Provider LAB BLOOD ORDERAB LES Final Result [facility] [address], [place] [phone] * (ABNORMAL) CBC auto differential (03/26/2024 3:28 PM EST) White Blood Count 9.5 4.8 - 10.8 X10*3/uL [facility] Red Blood Count 5.49 4.60 - 5.80 X10*6/uL [facility] Hemoglobin 15.8 14.0 - 18.0 g/dl [facility] Hematocrit 47.5 42.0 - 52.0 % [facility] Mean Corpuscular Volume 86.5 80.0 - 98.0 fL [facility] Mean Corpuscular Hemoglobin 28.8 27.0 - 33.0 pg [facility] Mean Corpuscular HGB Conc 33.3 31.0 - 36.0 g/dl [facility] Red Cell Distribution Width 13.4 11.0 - 16.0 % [facility] Platelet Count 234 160 - 400 X10*3/uL [facility] Mean Platelet Volume 11.8 9.4 - 12.4 fL [facility] Neutrophils Percent Auto 63.4 45 - 73 % [facility] Imm Gran Pct Auto 0.4 0.0 - 0.4 % [facility] Lymphocytes Percent Auto 26.1 20 - 40 % [facility] Monocytes Percent Auto 8.7 2 - 11 % [facility] Eosinophils Percent Auto 0.8 0 - 4 % [facility] Basophils Percent Auto 0.6 0 - 2 % [facility] NRBC Pct Auto 0.0 0.0 - 0.2 /100WBC [facility] Neutrophils Absolute Auto 6.0 2.0 - 8.3 x10*3/uL [facility] Imm Gran Abs Auto 0.04(H) 0.00 - 0.03 X10*3/uL [facility] Lymphocytes Absolute Auto 2.5 1.2 - 4.9 X10*3/uL [facility] Monocytes Absolute Auto 0.8 0.1 - 1.2 X10*3/uL [facility] Eosinophils Absolute Auto 0.1 0.0 - 0.4 X10*3/uL [facility] Basophils Absolute Auto 0.1 0.0 - 0.2 X10*3/uL [facility] NRBC Abs Auto 0.000 0.0 - 0.012 X10*3/uL [facility] 03/26/2024 3:28 PM EST 03/26/2024 3:30 PM EST us Generic External Data Provider LAB BLOOD ORDERAB LES Final Result Performing Organization Address City/State/[facility] Co de Phone Number [facility] [address] [place] [phone] documented in this encounter Visit Diagnoses Not on filedocumented in this encounter Additional Health Concerns Assessment Noted Time PHQ-9 Depression Total Score: 12 024 1:43 PM EST documented as of this encounter Care Teams Glass Mechanic Relationship Specialty Start Date End Date Clayton Hackett MD [address] [place] [phone] PCP - General Internal Medicine 01/06/15 documented as of this encounter
--- OUTSIDE RECORDS SUMMARY | 2024-04-22 13:26 | XMS_ITS | Encounter Summary ---
Author Organization [employer] Address [address] [place] [address] Care Team Providers Care Roving Changer Name Role Phone Clayton Hackett MD Primary Care Provider [phone]- [phone] Encounter Details Date Type Department Care Team ([facility] Contact Info) Description 01/09/2023 Abstract [facility] [address] [place] [address] Clayton Hackett MD [address] [place] [address] Social History Tobacco Use Types Packs/Day Years [...] Upcoming Encounters Date Type Department Care Team ([facility] Contact Info) Description 06/09/2024 9:45 AM EDT Office Visit [facility] MED [facility] PEDS [address] [place], [place] [phone] Clayton Hackett MD [address] [place] [address] 06/10/2024 3:00 PM EDT Office Visit [facility] OPTOMETRY [address] [place] [address] RoelRosy, OD [address] [place] [address] documented as of this encounter Procedures Procedure Name Priority Date/Time Associated Diagnosis Comments IFOBT Routine 08/16/2021 11:55 AM EDT documented in this encounter Results * gFOBT (08/16/2021 11:55 AM EDT) Fecal Occult Blood 1 Negative Fecal Occult Blood 2 Negative Fecal Occult Blood 3 Negative 08/16/2021 11:5 5 AM EDT us Historical Provider POINT OF CARE TEST ENTER/ EDIT ORDERABLES Final Result documented in this encounter Visit Diagnoses Not on filedocumented in this encounter Additional Health Concerns Assessment Noted Time PHQ-9 Depression Total Score: 17 023 1:24 PM EDT documented as of this encounter Care Teams Roving Changer Relationship Specialty Start Date End Date Clayton Hackett MD [address] [place] [address] PCP - General Internal Medicine 01/06/15 documented as of this encounter
--- OUTSIDE RECORDS SUMMARY | 2024-04-22 13:26 | XMS_ITS | Encounter Summary ---
Author Organization [employer] Address [address] [place] [address] [address] [place] [address] Care Team Providers Care Equipment Lead Name Role Phone Clayton Hackett MD Primary Care Provider [phone]- [phone] Reason for Visit * Reason Comments Med Refill Encounter Details Date Type Department Care Team ([facility] Contact Info) Description 11/14/2022 Refill [facility] MED & PEDS [address] [place] [address] Clayton Hackett MD [address] [place] [address] Type 2 diabetes mellitus with hyperglycemia ([facility]/HCC) Social History Tobacco Use Types Packs/Day Years [...] Upcoming Encounters Date Type Department Care Team ([facility] Contact Info) Description 06/09/2024 9:45 AM EDT Office Visit [facility] MED & PEDS [address] [place] [address] Clayton Hackett MD [address] [place] [address] 06/10/2024 3:00 PM EDT Office Visit [facility] OPTOMETRY [address] [place] [address] RoelRosy, OD [address] [place], [place] [phone] documented as of this encounter Visit Diagnoses Diagnosis Type 2 diabetes mellitus with hyperglycemia (CMS/HCC) documented in this encounter Additional Health Concerns Assessment Noted Time PHQ-9 Depression Total Score: 17 08/23/ 023 1:24 PM EDT documented as of this encounter Care Teams Equipment Lead Relationship Specialty Start Date End Date Clayton Hackett MD [address] [place] [address] PCP - General Internal Medicine 01/06/15 documented as of this encounter
--- OUTSIDE RECORDS SUMMARY | 2024-04-22 13:26 | XMS_ITS | Clinical Summary ---
Author Organization [employer] Address [address] [place] [address] Care Team Providers Care Sharemilker Name Role Phone Clayton Hackett MD Primary Care Provider [phone] Allergies No known active allergies Medications * This document contains information received from the source organization and may not represent a complete record from that organization. fluticasone (Flonase Allergy Relief) 50 MCG/ACT nasal spray Administer 2 sprays into affected nostril(s) in the morning. Active loratadine (Claritin) 10 MG tablet Take 1 tablet by mouth in the morning. Active methocarbamol (Robaxin) 750 MG tablet Take 1 tablet by mouth every 6 (six) hours. Active polyvinyl alcohol (Artificial Tears) 1.4 % ophthalmic solution one drop in each eye 3 times a day Active tamsulosin (Flomax) 0.4 MG 24 hr capsule Take 1 capsule by mouth at bed time. Active tiZANidine (Zanaflex) 2 MG tablet Take 1 tablet by mouth every 12 (twelve) hours. Active dicyclomine (Bentyl) 20 MG tablet TAKE ONE TABLET FOUR TIMES DAILY 023 Active omeprazole (PriLOSEC) [address] capsule Take 40 mg by mouth in the morning. Active sucralfate (Carafate) 1 g tablet TAKE TWO TABLETS TWICE DAILY 023 Active TRUEplus Lancets 33G misc TEST BLOOD SUGAR ONCE DAILY DIRECTED 100 each 5 023 Active gabapentin (Neurontin) 100 MG capsuleIndicatio ns:Type 2 diabetes mellitus without complication, without long-term current use of insulin ([facility]) Take 1 capsule (100 mg) by mouth in the morning. 1 capsule at bedtime 30 capsule 023 Active diclofenac (Cataflam) 50 MG tabletIndication s:Right flank pain Take 1 tablet (50 mg) by mouth every 8 (eight) hours. 30 tablet 3 023 Active pseudoephedrine (Sudafed) 30 MG tabletIndication s:Post-nasal drip Take 1 tablet (30 mg) by mouth every 4 (four) hours if needed for congestion for up to 10 days. 30 tablet Active chlorhexidine (Peridex) 0.12 % solution Swish 15 mL morning and night for 1 minute. Spit, do not swallow. Do not eat or drink for 30 minutes following use. 473 mL 024 Active acetaminophen (Tylenol) 500 MG tablet Take 1 tablet (500 mg) by mouth every 6 (six) hours if needed for mild pain for up to 20 doses. 20 tablet 024 Active meloxicam (Mobic) 15 MG tabletIndication s:Lateral epicondylitis of both elbows Take 1 tablet (15 mg) by mouth Once per day. 30 tablet 024 2024 Active levothyroxine (Synthroid, Levoxyl) 125 MCG tabletIndication s:Acquired hypothyroidism TAKE ONE TABLET BY MOUTH EVERY MORNING 90 tablet Active DULoxetine (Cymbalta) [address] capsuleIndicatio ns:Other depression Take 1 capsule (20 mg) by mouth 2 times daily. Do not crush or chew. 60 capsule 2024 Active Diclofenac Sodium 1 % gelIndications:L eft lateral epicondylitis To apply to the affected area 3 times a day 100 g 024 Active hydrocortisone (Anusol-HC) 2.5 % rectal creamIndications :External hemorrhoids Insert into the rectum 2 times daily. 28 g 1 Active lisinopril 5 MG tabletIndication s:Essential hypertension TAKE ONE TABLET DAILY 90 tablet 1 Active glucose blood (FREESTYLE LITE) test stripIndications :Type 2 diabetes mellitus without complication, without long-term current use of insulin (CMS/HCC) TEST BLOOD SUGAR EVERY DAY 50 strip 7 Active Trulicity 3 MG/0.5ML solution auto-injector INJECT 3mg's SUBCUTANEOUSLY ONCE PER WEEK Active celecoxib (CeleBREX) 200 MG capsuleIndicatio ns:Muscle spasm,Right flank pain Take 1 capsule (200 mg) by mouth 2 times daily. 60 capsule 025 2024 Active methocarbamol (Robaxin) 750 MG tabletIndication s:Muscle spasm,Right flank pain Take 1 tablet (750 mg) by mouth 4 times daily for 10 days. 40 tablet Active dulaglutide (Trulicity) 3 MG/0.5ML solution pen-injectorIndi cations:Type 2 diabetes mellitus without complication, without long-term current use of insulin ([facility]) Inject 3 mg under the skin 1 (one) time per week. 4 each 024 2024 Discontinued(M ed list cleanup (will not trigger notification to Pharmacy)) Active Problems Problem Noted Date Diagnosed Date Moderate depressive disorder 10/07/2023 Assessment & Plan (02/11/2024 3:04 PM EST): PROGRESS NOTE: ID: Theo is a 53 y.o. Black straight-identified cis-male with previous documented hx of Anxiety MH services including OP Psychotherapy who presents for Anxiety and Depression. During IBH Consult Theo presenting with depressed mood, crying spells , loss of interests/pleasure , sense of isolation/loneliness , changes in sleep difficulty falling asleep and difficulty staying asleep , psychomotor agitation, fatigue/loss of energy, worthlessness, difficulty concentrating and excessive worry/anxiety, difficulty controlling worry, and anxiety/worry associated to restlessness and/or feeling keyed-up/On edge , easily fatigued , difficulty concentrating and/or mind going blank , muscle tension , and sleep disturbance difficulty falling asleep and difficulty staying asleep ; for a period of 6-12 mo in the context of financial concern, illness or family illness, employment concern, and not been able to provide for his family due to language barrier. PLAN: Continue with current services (defined as services in the past 12 months) Behavioral Health Integration Plan Patient Self Plan Patient to utilize skills provided in intervention , Patient to reach out to [facility] team as needed, Patient to reach out to [facility] as needed, and Patient to follow-up with external team Open fracture of tooth 07/19/2023 Periodontal disease 07/18/2023 Dental calculus 07/18/2023 Missing teeth, acquired 07/18/2023 Essential hypertension 04/19/2022 Type 2 diabetes mellitus 04/18/2022 Hematuria 11/06/2021 Kidney stone 11/28/2020 Acquired hypothyroidism 04/17/2018 Anxiety 05/09/2016 Assessment & Plan (10/07/2023 10:18 AM EDT): PROGRESS NOTE: ID: Theo is a 53 y.o. Black straight-identified cis-male with previous documented hx of Anxiety services including OP Psychotherapy who presents for Anxiety and Depression During IBH Consult Theo presenting with loss of interests/pleasure , changes in sleep difficulty falling asleep, change in appetite or weight reduce appetite and reported it could be due to diabetes medication, psychomotor agitation, trouble concentrating, fatigue/loss of energy, inappropriate guilt and excessive worry/anxiety, difficulty controlling worry, restless/keyed up/On edge, easily fatigued, difficulty concentrating/Mind going blank , muscle tension, and sleep disturbance difficulty falling asleep; for a period of 0-6 mo, for all symptoms in the context of left arm pain, unable to work due to pain, financial instability, concern about housing. PLAN: New/Additional Services needed PCP management Off-site services for Behavioral Health Integration Plan External OP therapy referral Patient Self Plan Patient to utilize skills provided in intervention , Patient to reach out to [facility] team as needed, Comply with medication , and Patient to engage in OP therapy Simple obesity 01/23/2016 Encounters * This document contains information received from the source organization and may not represent a complete record from that organization. Date Type Department Care Team Description 04/07/2024 2:15 PM EST Office Visit [facility] MED & PEDS [address] [place] [address] Clayton Hackett MD Muscle spasm (Primary Dx); Right flank pain 04/07/2024 Travel 03/31/[address] [facility] MEDICINE [address] [place] [address] Clayton Hackett MD Nurse Triage 03/26/2024 Orders Only GENERIC EXTERNAL DATA DEPARTMENT Provider, Generic External Data 03/16/2024 9:45 AM EST Office Visit [facility] OPTOMETRY [address] [place] [address] Roel, Rosy, OD Presbyopia (Primary Dx) from Last 3 Months Immunizations Name Administration Dates Next Due Influenza injectable quadriv alent IIV4 with preservative 12/12/2015,01/06/2015 Influenza injectable quadrivalent preservative f ree 12/22/2019,04/17/2018 Influenza, seasonal, injectable, preservative fr ee 12/09/2023 Pneumococcal Conjugate PCV 20 12/09/2023 Tdap 10/16/2019,01/06/2015 Family History Medical History Relation Name Comments Diabetes Father Hypertension Father Thyroid disease Father Depression Mother Thyroid disease Mother Diabetes Sister Relation Name Status Comments Father Mother Sister Social History Tobacco Use Types Packs/Day Years Used Date Smoking Tobacco: Never Passive Smoke Exposure: Never Smokeless Tobacco: Never Tobacco Cessation:Counseling Given: [...] your housing situation today? I have benjamin dilalo 04/07/[address] you li [...] Orientation Straight 01/08/2022 10 :28 AM EDT Last Filed Vital Signs Vital Sign Reading [...] Mass Index 41.67 04/07/2024 1:50 PM EST Plan of Treatment Upcoming Encounters Date Type Department Care Team (Late st Contact Info) Description 06/09/2024 9:45 AM EDT Office Visit [facility] MED & PEDS [address] [place] [address] Clayton Hackett MD [address] [place] [address] 06/10/2024 3:00 PM EDT Office Visit [facility] OPTOMETRY [address] [place] [address] Rosy Sevilla, OD [address] [place] [address] Health Maintenance Due Date Last Done Comments CT Colonography 1971 Dental Oral Exam 1971 FIT DNA/Cologuard 1971 FIT 1970 Sigmoidoscopy 1970 Family Planning (PISQ) 08/08/1986 Hepatitis B Vaccines (1 of 3 - 19+ 3-dose series) 08/08/1990 Zoster Vaccines (1 of 2) 08/08/2021 Diabetes: Urine Protein Screening 06/28/2022 06/28/2021 Lipid Panel 06/28/2022 06/28/2021, 03/15/2020 FOBT 08/16/2022 08/16/2021 Diabetes: Foot Exam 08/24/2023 08/23/2022, 08/23/2022, 08/23/2022, Additional history exists COVID-19 Vaccine (2023- season) 2023 08/16/2020, 07/26/2020 Diabetes: Hemoglobin A1C 01/07/2024 024, 05/14/2023, 08/23/2022 Dental Prophylaxis 01/19/2024 07/18/2023, 03/22/2022 Dental X-Ray: Bitewings 07/18/2024 07/18/19 24, 05/13/2023, 04/15/2023, Additional history exists Colonoscopy 10/04/2024 10/04/2021, 10/04/2021 Colorectal Cancer Screening 10/04/2024 Dental X-Ray: Full Mouth 03/23/2025 03/22/2022 Alcohol/Substance Use Screening 04/07/2025 04/07/2024 Depression Screening 04/07/2025 04/07/2024, 04/07/19 25 SDOH Screening 04/07/2025 04/07/2024 Tobacco Screening 04/07/2025 04/07/2024 Eye Exam 06/03/2025 06/04/2023, 05/10, 06/04/2023, Additional history exists DTaP/Tdap/Td Vaccines (3 - Td or Tdap) 10/15/2029 10/16/2019, 01/06/2015 RSV Patients and Patients Aged 60 years or older (1 - 1-dose 75+ series) 08/08/2046 HIV Screening Completed 06/28/2021 Hepatitis C Screening Completed 06/28/2021 Influenza Vaccine Completed 12/09/2023, , 04/17/2018, Additional history exists Pneumococcal Vaccine: 50+ Years Completed 12/09/2023 HIB Vaccines Aged Out No longer eligi ble based on patient's age to complete this topic HPV Vaccines Aged Out No longer eligi ble based on patient's age to complete this topic Hepatitis A Vaccines Aged Out No long er eligible based on patient's age to complete this topic IPV Vaccines Aged Out No longer eligi ble based on patient's age to complete this topic Meningococcal Vaccine Aged Out No elvin toshia eligible based on patient's age to complete this topic RSV under 20 months Aged Out No longe r eligible based on patient's age to complete this topic Rotavirus Vaccines Aged Out No longer eligible based on patient's age to complete this topic Procedures Procedure Name Priority Date/Time Associated Diagnosis Comments XR KUB AND UPRIGHT 2 VIEWS Routine 03/26/2024 10:41 PM EST URINALYSIS WITH REFLEX MICROSCOPIC Routine 03/26/2024 3:35 PM EST LIPASE Routine 03/26/2024 3:28 PM EST BASIC METABOLIC PANEL Routine 03/26/2024 3:28 PM EST HEPATIC FUNCTION PANEL Routine 3:28 PM EST CBC WITH AUTO DIFFERENTIAL Routine 03/26/2024 3:28 PM EST POCT GLYCATED HEMOGLOBIN, TOTAL Routine 10/07/2023 10:07 AM EDT Type 2 diabetes mellitus without complication, without long-term current use of insulin ([facility]) PROPHYLAXIS - ADULT Routine 07/18/2023 8 :00 AM EDT Periodontal disease Dental calculus Missing teeth, acquired Open fracture of tooth, initial encounter BITEWING - SINGLE RADIOGRAPHIC IMAGE Routine 07/18/2023 8:00 AM EDT Periodontal disease Dental calculus Missing teeth, acquired Open fracture of tooth, initial encounter DIAGNOSTIC - DIAGNOSTIC IMAGING - INTRAORAL - COMPREHENSIVE SERIES OF RADIOGRAPHIC IMAGES Routine 03/22/2022 8:00 AM EST COLONOSCOPY Routine 10/04/2021 HM IFOBT Routine 08/16/2021 11:55 AM EDT ALBUMIN, RANDOM URINE W/CREATININE Routine 06/28/2021 11:35 AM EDT ZZZ HISTORICAL HEPATITIS C AB W/REFL TO HCV RNA, QN, PCR Routine 06/28/2021 11:33 AM EDT HIV 1/2 ANTIGEN/ANTIBODY, FOURTH GENERATION W/RFL Routine 06/28/2021 11:33 AM EDT LIPID PANEL, STANDARD Routine 06/28/2021 11:33 AM EDT from Last 3 Months or Most Recently Relevant to Health Maintenance Results * XR KUB and Upright 2 Views (03/26/2024 10:41 PM EST) Anatomical Region Laterality Modality Radiographic Bridget ging 03/26/2024 10:4 1 PM EST Narrative 03/26/2024 10:44 PM EST ? [facility] ?[address] ?[place] [address] ?XRay Report ? Signed ? Patient: Theo Flores ?MR#: [id number] ? : 1970 ?Acct:[id number] ? Age/Sex: 53 / M ?ADM Date: 03/26/24 ? Loc: HO.ED ? Attending Dr: ? Ordering Physician: Danni Dupree ?? Date of Service: 03/26/24 ?? Procedure(s): XR KUB ?? Accession Number(s): [id number] ? cc: Clayton Hackett MD; Danni Dupree [...] by Jerome Valadez MD in OV> ? 03/26/242242 ? DD/ 40 ? TD/TT: 03/26/242240 ? Regional Controller: ? Procedure Note Donchandanter, Image - 03/26/[address] [address] XRay Report Signed Patient: Theo FloresMR#: [id number] : 1970Acct:[id number] Age/Sex: 53 / MADM Date: 03/26/24 Loc: HO.ED Attending Dr: Ordering Physician: Danni Dupree Date of Service: 03/26/24 Procedure(s): XR KUB Accession Number(s): [id number] cc: Clayton Hackett MD; Danni Dupree CLINICAL [...] in OV> 03/26/242242 DD/ 40 TD/TT: 03/26/242240 Regional Controller: [facility] External Provider IMG XR PROCEDURES Final Result * Urinalysis w/reflex microscopic (03/26/2024 3:35 PM EST) Color Urine Yellow [facility] Appearance Urine Clear [facility] PH 6.5 5.0 - 9.[address] [facility] Glucose Urine UA Negative Negative mg/dL [facility] Urine Blood Negative Negative [facility] Specific [place] - Urine 1.020 1.005 - 1.[address] [facility] Urine Protein Negative Neg-Trace mg/dL [facility] Urine Ketones Negative Negative mg/dL [facility] Nitrite Urine Negative Negative [facility] Leukocyte Esterase Urine Negative Negative [facility] 03/26/2024 3:35 PM EST 03/26/2024 3:42 PM EST Narrative [facility] - 03/26/2024 3:46 PM EST [id number], Clean Catch us Generic External Data Provider LAB URINE ORDERAB LES Final Result Performing Organization Address City/State/[facility] Co de Phone Number [facility] [address] [place] [phone] * (ABNORMAL) CBC auto differential (03/26/2024 3:28 PM EST) White Blood Count 9.5 4.8 - 10.8 X10*3/uL [facility] Red Blood Count 5.49 4.60 - 5.80 X10*6/uL [facility] Hemoglobin 15.8 14.0 - 18.0 g/dl [facility] Hematocrit 47.5 42.0 - 52.0 % [facility] Mean Corpuscular Volume 86.5 80.0 - 98.[address] [facility] Mean Corpuscular Hemoglobin 28.8 27.0 - 33.[address] [facility] Mean Corpuscular HGB Conc 33.3 31.0 - 36.0 g/dl [facility] Red Cell Distribution Width 13.4 11.0 - 16.0 % [facility] Platelet Count 234 160 - 400 X10*3/uL [facility] Mean Platelet Volume 11.8 9.4 - 12.[address] [facility] Neutrophils Percent Auto 63.4 45 - 73 % [facility] Imm Gran Pct Auto 0.4 0.0 - 0.4 % [facility] Lymphocytes Percent Auto 26.1 20 - 40 % [facility] Monocytes Percent Auto 8.7 2 - 11 % [facility] Eosinophils Percent Auto 0.8 0 - 4 % [facility] Basophils Percent Auto 0.6 0 - 2 % [facility] NRBC Pct Auto 0.0 0.0 - 0.2 /100WBC [facility] Neutrophils Absolute Auto 6.0 2.0 - 8.3 x10*3/uL [facility] Imm Gran Abs Auto 0.04(H) 0.00 - 0.03 X10*3/uL [facility] Lymphocytes Absolute Auto 2.5 1.2 - 4.9 X10*3/uL [facility] Monocytes Absolute Auto 0.8 0.1 - 1.2 X10*3/uL [facility] Eosinophils Absolute Auto 0.1 0.0 - 0.4 X10*3/uL [facility] Basophils Absolute Auto 0.1 0.0 - 0.2 X10*3/uL [facility] NRBC Abs Auto 0.000 0.0 - 0.012 X10*3/uL [facility] 03/26/2024 3:28 PM EST 03/26/2024 3:30 PM EST us Generic External Data Provider LAB BLOOD ORDERAB LES Final Result [facility] [address] [place] [phone] * Lipase (03/26/2024 3:28 PM EST) Lipase 29 8 - 78 U/L [facility] 03/26/2024 3:28 PM EST 03/26/2024 3:30 PM EST us Generic External Data Provider LAB BLOOD ORDERAB LES Final Result Performing Organization Address [facility] Co de Phone Number [facility] [address] [place] [phone] * (ABNORMAL) Hepatic Function Panel (03/26/2024 3:28 PM EST) Bilirubin, Total 1.5(H) 0.0 - 1.0 mg/dL [facility] Bilirubin, Direct 0.4 0.0 - 0.5 mg/dL [facility] Aspartate Amino Transferase 26 5 - 37 U/L [facility] Alanine Aminotransferase 33 0 - 40 U/L [facility] Total Protein 7.8 6.5 - 8.0 g/dL [facility] Albumin Level 4.3 3.5 - 5.0 g/dL [facility] Alkaline Phosphatase 97 39 - 117 U/L [facility] 03/26/2024 3:28 PM EST 03/26/2024 3:30 PM EST us Generic External Data Provider LAB BLOOD ORDERAB LES Final Result Performing Organization Address [facility] de Phone Number [facility] [address] [place] [phone] * (ABNORMAL) Basic Metabolic Panel (03/26/2024 3:28 PM EST) Pathologist [facility] Sodium 140 135 - 145 mmol/L [facility] Potassium 4.1 3.3 - 5.1 mmol/L [facility] Chloride 110(H) 96 - 108 mmol/L [facility] Carbon Dioxide 26 22 - 29 mmol/L [facility] Anion Gap 8(L) 12 - [address] [facility] Urea Nitrogen (BUN) 12 9 - 16 mg/dL [facility] Creatinine, Serum 1.08 0.5 - 1.4 mg/dL [facility] Creatinine Clr Calc Pharmacy 107.[address] [facility] Comment:eGFR (calculated fro m the MDRD study equation) and eCrCl(calculated from the Cockcroft-Gault equation) are based ondifferent parameters and may not yield comparable results.If eCrCl result is absurd, please check patient'sheight/weight. Estimated Glomerular Filt Rate >[address] [facility] Comment:Chronic Kidney Disea se: Estimated GFR < 60 mL/min/1.87s1Cbuokt Kidney Disease: Estimated GFR < 15 mL/min/1.73m2 Glucose 89 60 - 115 mg/dL [facility] Calcium 8.6 8.4 - 10.2 mg/dL [facility] 03/26/2024 3:28 PM EST 03/26/2024 3:30 PM EST Generic External Data Provider LAB BLOOD ORDERAB LES Final Result [facility] [address] [place] [phone] * POCT HGB A1C (10/07/2023 10:07 AM EDT) Hemoglobin A1C 5.9 4.0 - 6.0 % QC Media Lot # [id number] Lot# Expiration Date [id number] Blood 10/07/2023 10:0 7 AM EDT Clayton Hackett MD POINT OF CARE TEST ENTER/ED IT ORDERABLES Final Result * (ABNORMAL) Colonoscopy (10/04/2021) Anatomical Region Laterality Modality Endoscopy Narrative 10/04/[address] Casey Moctezuma. Dx: Polyp of ascending colon. Bx: Tubular adenoma. Neg for High grade dysplasia or carcinoma. Historical Provider ENDOSCOPY PROCEDURE ORDER MARY Final Result * HM gFOBT (08/16/2021 11:55 AM EDT) Fecal Occult Blood 1 Negative Fecal Occult Blood 2 Negative Fecal Occult Blood 3 Negative 08/16/2021 11:5 5 AM EDT us Historical Provider MD POINT OF CARE TEST ENTER/ EDIT ORDERABLES Final Result * ALBUMIN, RANDOM URINE W/CREATININE (06/28/2021 11:35 AM EDT) Microalbumin Urine 0.2 See Note: mg/dL [facility] Comment: Reference Range: ?? Reference Range Not established Microalb/Creat Ratio 1 <30 mcg/mg creat [facility] Comment: ?? The ADA defines abnormalities in albumin excretion as follows: ?? Albuminuria Category ?Result (mcg/mg creatinine) ?? Normal to Mildly increased ?? <30 Moderately increased ? 30-299 ?? Severely increased ? > OR = 300 ?? The ADA recommends that at least two of three specimens collected within a 3-6 month period be abnormal before considering a patient to be within a diagnostic category. Creatinine, Urine 205 20 - 320 mg/dL [facility] 06/28/2021 11:3 5 AM EDT Andra Waldrop MD LAB URINE ORDERABLES Final Re sult [facility] [address] * HEPATITIS C AB W/REFL TO HCV RNA, QN, PCR (06/28/2021 11:33 AM EDT) HEPATITIS C ANTIBODY NON-REACT CHARLEEN NON-REACT CHARLEEN [facility] INDEX 0.02 <1.00 [facility] Comment: ?? HCV antibody was non-reactive. There is no laboratory ?? evidence of HCV infection. ?? In most cases, no further action is required. However, if recent HCV exposure is suspected, a test for HCV RNA (test code 89743) is suggested. ?? For additional information please refer to http://education.BuildingLayer/faq/DOS28f9 (This link is being provided for informational/ educational purposes only.) ?? 06/28/2021 11:3 3 AM EDT Andra Waldrop MD HISTORICAL/NON ORDERABLE LABS Final Result Performing Organization Address [facility] de Phone Number [facility] [address] [place] [address], * HIV 1/2 ANTIGEN/ANTIBODY,FOURTH GENERATION W/RFL (06/28/2021 11:33 AM EDT) HIV-1/2 ANTIGEN AND ANTIBODIES, 4TH GENERATION W/ REFLEX NON-REACT CHARLEEN NON-REACT CHARLEEN [facility] Comment: HIV-1 antigen and HIV-1/HIV-2 antibodies were not detected. There is no laboratory evidence of HIV infection. ?? PLEASE NOTE: This information has been disclosed to you from records whose confidentiality may be protected by state law. ??If your state requires such protection, then the state law prohibits you from making any further disclosure of the information without the specific written consent of the person to whom it pertains, or as otherwise permitted by law. A general authorization for the release of medical or other information is NOT sufficient for this purpose. ? For additional information please refer to http://education.BuildingLayer/faq/JNM546 (This link is being provided for informational/ educational purposes only.) ? The performance of this assay has not been clinically validated in patients less than 2 years old. ?? 06/28/2021 11:3 3 AM EDT Andra Waldrop MD LAB BLOOD ORDERABLES Final Re sult Performing Organization Address [facility] de Phone Number [facility] [address] [place] [address], * (ABNORMAL) LIPID PANEL, STANDARD (06/28/2021 11:33 AM EDT) Chol/HDLC Ratio 4.0 <5.0 (calc) [facility] Cholesterol, Total 148 <200 mg/dL [facility] HDL Cholesterol 37(L) > OR = 40 mg/dL [facility] SYSTEM LDL Cholesterol 95 mg/dL (calc) [facility] Comment: Reference range: <100 ?? Desirable range <100 mg/dL for primary prevention; ?? <70 mg/dL for patients with CHD or diabetic patients ?? with > or = 2 CHD risk factors. ?? LDL-C is now calculated using the Luis ?? calculation, which is a validated novel method providing ?? better accuracy than the Friedewald equation in the ?? estimation of LDL-C. ?? Samuel MEZA et al. SELVIN. 2013;310(19): 0412-6445 ?? (http://Fairphone.jigl/faq/BCF625) Non-HDL Cholesterol 111 <130 mg/dL (calc) [facility] Comment: For patients with diabetes plus 1 major ASCVD risk ?? factor, treating to a non-HDL-C goal of <100 mg/dL ?? (LDL-C of <70 mg/dL) is considered a therapeutic ?? option. Triglycerides 69 <150 mg/dL [facility] 06/28/2021 11:3 3 AM EDT us Andra Waldrop MD LAB BLOOD ORDERABLES Final Re sult [facility] [address] from Last 3 Months or Most Recently Relevant to Health Maintenance Insurance [facility] C3 [facility]ENTAL-[facility] MEDICAID STAND ADULT Care Teams Sharemilker Relationship Specialty Start Date End Date Clayton Hackett MD [address] [place] [id number] PCP - General Internal Medicine 01/06/15
== END 2024-04-22 11:34 | disposition home or self-care (01) ==
LOC: HO.HMGCX 11:33
PROVIDERS: PCP Internal Medicine; Visit Provider Internal Medicine
DX: R10.9 Unspecified abdominal pain (principal); M62.838 Other muscle spasm
CPT/HCPCS: 76775

== ENCOUNTER → 2024-04-22 11:35 | Outpatient (BNV) | payer MEDICAID, SELFPAY | PROVIDERS: PCP Internal Medicine; Visit Provider Nuclear Medicine | DX: R10.9 Unspecified abdominal pain (principal) | CPT/HCPCS: 76775 ==

== ENCOUNTER 2024-07-31 10:08 | Outpatient (AMB) | payer MEDICAID, SELFPAY ==
--- NOTE | 2024-07-31 10:12 | A.OFFVIS_ITS ---
Vital Signs 07/31/24 10:39 Height 5 ft 9 in Weight 287 lb 0.67 oz BMI 42.4 BP 111/54 L Blood Pressure Location Lt brachial Position Sitting Pulse 63 Intake Visit Reasons: 7 months follow up Intake Note: Patient 7 month follow up for Bile salt-induced diarrhea. Patient cc: reports improvement with Sucralfate, omeprazole and Dicyclomine. 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 He continues to do well on his GI regimen. His sucralfate, omeprazole once a day, and dicyclomine control his GI conditions well. He has no new health problems to report at this time. ROV 6 mos. Medications: Refilled omeprazole 40 mg PO DAILY 30 caps 6RF K21.9 - Gastro-esophageal reflux disease without esophagitis, K90.89 - Other intestinal malabsorption sucralfate 2 grams (2 x 1 gram) PO BID 120 ea 6RF K90.89 - Other intestinal malabsorption dicyclomine 20 mg PO QID 120 tabs 6RF 30 days K21.9 - Gastro-esophageal reflux disease without esophagitis, K90.89 - Other intestinal malabsorption L tODAYS VISIT [place] #Andra Mayorga His sucralfate, omeprazole once a day, and dicyclomine control his GI conditions well. Return office visit in 6 months [facility] Medical History (Updated 07/31/24 @ 17:05 by ESPERANZA Butler) Right upper quadrant abdominal pain Colon cancer screening Cholecystectomy planned Thyroid activity decreased Surgical History History of cholecystectomy Family History Father Diabetes High blood pressure Mother Hypothyroid High blood pressure Social History Household Members: Spouse Alcohol intake: never Patient Tobacco Use Status: Never used Tobacco Review of Systems Const Denies fatigue, Denies fever(s), Denies night sweats, Denies poor appetite and Denies weight loss Eyes Details: glasses Reports requires corrective lenses ENT Reports Normal hearing present, Denies dental pain, Denies dysphagia, Denies hearing loss, Denies mouth pain, Denies odynophagia, Denies throat swelling, Denies tongue swelling and Reports other (Dentition adequate) Card Reports no additional complaints Resp Reports no additional complaints GI Details: Denies abdominal pain, Denies melena, Denies bloating, Denies hematochezia, Denies constipation, Denies GI cramping, Denies dysphagia, Denies excessive flatus, Denies early satiety, Denies heartburn, Denies diarrhea, Denies nausea, Denies odynophagia, Denies vomiting and Denies hematemesis Skin/Breast Denies pruritus, Denies lesions, Denies rash and Denies jaundice Neuro Reports Normal hearing present and Denies Abnormal speech present Endo Denies fatigue Aller/Immun Denies throat swelling and Denies tongue swelling Physical Exam Vital Signs: Last Vital Signs Pulse 63 07/31/24 10:39 BP 111/54 L 07/31/24 10:39 BMI result Body Mass Index 42.4 Const General: cooperative, no acute distress, well developed and well groomed Nutritional Appearance: well nourished and obese Orientation/consciousness: oriented to person, oriented to place and oriented to time Limitations: language barrier HEENT Head: Yes normocephalic and Yes atraumatic Eyes General: appearance normal, both eyes and all related structures Pupils: Equal, round and reactive pupils present Neck Neck: Yes normal visual inspection and Yes no lymphadenopathy Thyroid: Thyroid normal Resp Effort & Inspection: normal respiratory effort and able to speak in complete sentences Auscultation: clear to auscultation bilaterally Cardio Rate: regular rate Rhythm: regular rhythm Heart sounds: Normal, physiologic split S2 sound present Peripheral pulses: radial pulses present and posterior tibial pulses present GI Inspection: No distended, Yes Abdominal panniculus present and Yes obesity Palpation (GI): Soft to palpation, nontender, no guarding, not rigid and No hepatosplenomegaly present Percussion: Yes normal to percussion Auscultation: normal bowel sounds Rectal Exam - Male: Yes deferred Skin General skin exam: no rashes or lesions noted, turgor normal, skin not dry, no jaundice, No spider nevi and no striae Rashes: no rashes Nails: normal Neuro General: oriented to person, oriented to place and oriented to time Cranial nerves: Yes Equal, round and reactive pupils present and Yes Normal hearing present Speech: No Abnormal speech present Extrem General: Yes normal to inspection, No clubbing, No cyanosis and No edema Psych Appearance: grossly normal and well kempt Mental Status: mental status grossly normal Speech and movement: Normal speech and movement present Affect: normal affect Attitude: cooperative Thought process: Normal thought process present and not confabulating Thought content: Normal thought content present Insight: Fair insight present (Psych) Judgement: Fair judgement present (Psych) Assessment & Plan Assessment & Plan (1) GERD (gastroesophageal reflux disease): Code(s): K21.9 - Gastro-esophageal reflux disease without esophagitis Category: Medical 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 Category: Medical Plan [place] #Andra Live His sucralfate, omeprazole once a day, and dicyclomine control his GI conditions well. Return office visit in 6 months Medications: Refilled dicyclomine 20 mg PO QID 120 tabs 6RF 30 days K21.9 - Gastro-esophageal reflux disease without esophagitis, K90.89 - Other intestinal malabsorption omeprazole 40 mg PO DAILY 30 caps 6RF K21.9 - Gastro-esophageal reflux disease without esophagitis, K90.89 - Other intestinal malabsorption sucralfate 2 grams (2 x 1 gram) PO BID 120 ea 6RF K90.89 - Other intestinal malabsorption Coding Level of Care Code Est Pt Level 3 (99662) Diagnoses GERD (gastroesophageal reflux disease) K21.9 Bile salt-induced diarrhea K90.89
--- OUTSIDE RECORDS SUMMARY | 2024-07-31 10:23 | XMS_ITS | Clinical Summary ---
Author Organization [facility] Facility Address [address] [place] [address] Care Team Providers Care Avian Keeper Name Role Phone Clayton Hackett MD Primary [...] Health Maintenance Due Date Last Done Comments Hepatitis B Vaccine (1 of 3 - 19+ 3-dose series) 08/08 Pneumococcal Vaccine: 50+ Years (1 of 2 - PCV) 991 Colorectal Cancer Screening: Annual FOBT 08/08/2020 Colorectal Cancer Screening: Colonoscopy 08/08/2020 Colorectal Cancer Screening: Sigmoidoscopy 08/08/2020 Influenza Vaccine (Season Ended) 2024 Insurance Medicaid [place] Care Teams Avian Keeper Relationship Specialty Start Date End Date Clayton Hackett MD [address] [place] [address] [phone] PCP - General Internal Medicine 07/12/21
[2024-07-31 10:39] VITALS: BP 111/54; PULSE 63; BMI 42.4
== END 2024-07-31 11:09 | disposition home or self-care (01) ==
LOC: HO.HGI 10:08
PROVIDERS: PCP Internal Medicine; Visit Provider Nurse Practitioner
DX: K21.9 Gastro-esophageal reflux disease without esophagitis (principal); K90.89 Other intestinal malabsorption
CPT/HCPCS: 99213

== ENCOUNTER → 2024-07-31 10:08 | Outpatient (BNVA) | payer MEDICAID, SELFPAY | PROVIDERS: PCP Internal Medicine; Visit Provider Nurse Practitioner | DX: K21.9 Gastro-esophageal reflux disease without esophagitis (principal); K90.89 Other intestinal malabsorption | CPT/HCPCS: 99212 ==

== ENCOUNTER 2024-09-10 11:13 | Outpatient (REF) | payer MEDICAID, SELFPAY ==
--- OUTSIDE RECORDS SUMMARY | 2024-09-10 10:30 | XMS_ITS | Encounter Summary ---
Author Organization [employer] Address [address] [place] [address] Care Team Providers Care Shoe Salesman Name Role Phone Clayton Hackett MD Primary Care Provider [phone]- [phone] Reason for Referral * Consultation (Routine) - Pending Review Specialty Diagnoses / Procedures Referred By Nilsa lewis Referred To Contact Physical Therapy Diagnoses Patellofemoral pain syndrome of right knee Clayton Hackett MD [address] [place] [address] Phone: tel: fax: Referral ID Status Reason Start Date Expiration Date Visits Requested Visits Authorized [id number] Pending Review Specialty Services Required 09/10/2024 09/10/2025 1 1 Reason for Visit * Reason Comments Hypertension Diabetes Hypothyroidism Encounter Details Date Type Department Care Team (Latest Contact Info) Description 09/10/2024 10:30 AM EDT Office Visit [facility] CH[facility] MED & PEDS [address] [place] [address] Clayton Hackett MD [address] [place] [address] Acquired hypothyroidism (Primary Dx); Type 2 diabetes mellitus without complication, without long-term current use of insulin ([facility]/HCC); Essential hypertension; Lateral epicondylitis of right elbow; Patellofemoral pain syndrome of right knee Social History Tobacco Use Types Packs/Day Years [...] Sign Reading Time Taken Comments Blood Pressure 128/73 09/10/2024 10:36 AM EDT Pulse 60 09/10/2024 10:36 AM EDT Temperature 36.7 C (98.1 F) 09/10/2024 10:36 AM EDT Respiratory Rate 14 09/10/2024 10:36 AM EDT Oxygen Saturation 99% 09/10/2024 10:36 AM EDT Inhaled Oxygen Concentration - - Weight 128 kg (283 lb) 09/10/2024 10:36 AM EDT Height 178 cm (5' 10.08 ) 09/10/2024 10:36 AM ED T Body Mass Index 40.51 09/10/2024 10:36 AM EDT documented in this encounter Plan of Treatment Scheduled Orders Name Type Priority Associated Diagnoses Orde r Schedule Albumin, Random Urine W/Creatinine Lab Routine Type 2 diabetes mellitus without complication, without long-term current use of insulin ([facility]) Expected: 09/10/2024 (Approximate), Expires: 09/10/2025 Lipid Panel, Standard Lab Routine Type 2 diabetes mellitus without complication, without long-term current use of insulin ([facility]/HCC) Expected: 09/10/2024 (Approximate), Expires: 09/10/2025 TSH W/Reflex to FT4 Lab Routine Acquired hypothyroidism Expected: 09/10/2024 (Approximate), Expires: 09/10/2025 Scheduled Referrals Name Type Priority Associated Diagnoses Orde r Schedule Referral to Physical Therapy Outpatient Referral Routine Patellofemoral pain syndrome of right knee Expected: 09/10/2024 (Approximate), Expires: 09/10/2025 documented as of this encounter Procedures Procedure Name Priority Date/Time Associated Diagnosis Comments POCT GLYCATED HEMOGLOBIN, TOTAL Routine 09/10/2024 10:38 AM EDT Type 2 diabetes mellitus without complication, without long-term current use of insulin ([facility]) POCT GLUCOSE Routine 09/10/2024 10:38 AM EDT Type 2 diabetes mellitus without complication, without long-term current use of insulin ([facility]) documented in this encounter Results * POCT glucose manually resulted (09/10/2024 10:38 AM EDT) Glucose Blood, POC 100 60 - 200 mg/dL QC Media Lot # Comment:[id number] Lot# Expiration Date Comment:01/07/2025 Blood Capillary blood specimen / Unknown 09/10/2024 10:38 AM EDT Clayton Hackett MD POINT OF CARE TEST ENTER/ED IT ORDERABLES Final Result * POCT A1C (09/10/2024 10:38 AM EDT) Hemoglobin A1C 5.6 4.0 - 5.7 % QC Media Lot # Comment:[id number] Lot# Expiration Date Comment:03/12/2026 Blood 09/10/2024 10:3 8 AM EDT Clayton Hackett MD POINT OF CARE TEST ENTER/ED IT ORDERABLES Final Result documented in this encounter Visit Diagnoses Diagnosis Acquired hypothyroidism- Primary Unspecified hypothyroidism Type 2 diabetes mellitus without complication, without long-term current use of insulin ([facility]) Essential hypertension Unspecified essential hypertension Lateral epicondylitis of right elbow Patellofemoral pain syndrome of right knee documented in this encounter Additional Health Concerns Assessment Noted Time PHQ-9 Depression Total Score: 0 04/07/19 25 1:51 PM EST documented as of this encounter Care Teams Shoe Salesman Relationship Specialty Start Date End Date Clayton Hackett MD [address] [place] [id number] PCP - General Internal Medicine 01/06/15 documented as of this encounter
--- OUTSIDE RECORDS SUMMARY | 2024-09-10 12:03 | XMS_ITS | Encounter Summary ---
Author Organization [facility] Address [address] [place] [address] Care Team Providers Care Woodenware Assembler Name Role Phone Yolie Peck MD Primary Care Provider [phone] Clayton Hackett MD Primary Care Pr ovider Unavailable Encounter Details Date Type Department Care Team Description 11/01/2014 Release of Information Medical Records [address] [place] [id number] Abstract, Provider Social History Tobacco Use Types Packs/Day Years Used Date Smoking Tobacco: Never Smokeless Tobacco: Never Alcohol Use Standard Drinks/Week Comments No 0 (1 standard drink = 0.6 oz pur e alcohol) Sex Assigned at Date Recorded Not on file documented as of this encounter Plan of Treatment Not on file documented as of this encounter Visit Diagnoses Not on filedocumented in this encounter Care Teams Woodenware Assembler Relationship Specialty Start Date End Date Yolie Peck MD [address] [place] [address] PCP - General Internal Medicine 10/26/14 03/15/15 Clayton Hackett MD [address] [place] [id number] PCP - General Internal Medicine 03/16/15 documented as of this encounter
--- OUTSIDE RECORDS SUMMARY | 2024-09-10 12:03 | XMS_ITS | Clinical Summary ---
Author Organization [facility] Facility Address [address] [place] [address] Care Team Providers Care Smeller Name Role Phone Clayton Hackett MD Primary [...] Insurance [place] Care Teams Smeller Relationship Specialty Start Date End Date Clayton Hackett MD [address] [place] [address] [phone] PCP - General Internal Medicine 07/12/21
[2024-09-10 15:41] LABS: Cholesterol 151 mg/dL (<200); HDL Cholesterol 39 mg/dL (>40); Triglycerides 70 mg/dL (<150)
[2024-09-10 17:52] LABS: Free T4 (Free Thyroxine) 0.89 ng/dL (0.71-1.85)
== END 2024-09-10 11:14 | disposition home or self-care (01) ==
LOC: HO.CHCLDS 11:13
PROVIDERS: Visit Provider Internal Medicine
DX: E11.9 Type 2 diabetes mellitus without complications (principal); E03.9 Hypothyroidism, unspecified
CPT/HCPCS: 36415; 80061; 82043; 82570; 84439; 84443

== ENCOUNTER 2025-02-02 08:40 | Outpatient (AMB) | payer MEDICAID, SELFPAY ==
--- OUTSIDE RECORDS SUMMARY | 2025-02-02 09:01 | XMS_ITS | Encounter Summary ---
Author Organization [employer] Address [address] [place] [address] Care Team Providers Care Test Driller Name Role Phone Clayton Hackett MD Primary Care Provider [phone] Reason for Visit * Reason Onset Date Comments Durable Medical Equipment 06/04/2023 Encounter Details Date Type Department Care Team (Late st Contact Info) Description 06/04/2023 Telephone [facility] MEDICINE [address] [place] [address] Clayton Hackett MD [address] [place] [address] Durable Medical Equipment Social History Tobacco Use [...] Care Team (Late st Contact Info) Description 06/23/2025 11:00 AM EDT Office Visit [facility] OPTOMETRY [address] [place], [place] [phone] Roel, Rosy, OD [address] [place] [address] documented as of this encounter Visit Diagnoses Not on filedocumented in this encounter Additional Health Concerns Assessment Noted Time PHQ-9 Depression Total Score: 17 023 1:24 PM EDT documented as of this encounter Care Teams Test Driller Relationship Specialty Start Date End Date Clayton Hackett MD [address] [place] [phone] PCP - General Internal Medicine 01/06/15 documented as of this encounter
--- OUTSIDE RECORDS SUMMARY | 2025-02-02 09:01 | XMS_ITS | Encounter Summary ---
Author Organization [employer] Address [address] [place] [address] Care Team Providers Care Mcat Tutor Name Role Phone Clayton Hacktet MD Primary Care Provider Reason for Visit * Reason Comments Med Refill Encounter Details Date Type Department Care Team (Late Contact Info) Description 08/16/2023 Refill [facility] MED & PEDS [address] [place] [address] Clayton Hackett MD [address] [place] [address] Type 2 diabetes mellitus with hyperglycemia ([facility]) Social History Tobacco Use Types Packs/Day Years [...] Department Care Team (Late Contact Info) Description 06/23/2025 11:00 AM EDT Office Visit [facility] OPTOMETRY [address] [place] [address] Rosy Sevilla, OD [address] [place] [address] documented as of this encounter Visit Diagnoses Diagnosis Type 2 diabetes mellitus with hyperglycemia (HCC) documented in this encounter Additional Health Concerns Assessment Noted Time PHQ-9 Depression Total Score: 15 024 10:35 AM EDT documented as of this encounter Care Teams Mcat Tutor Relationship Specialty Start Date End Date Clayton Hackett MD [address] [place] [id number] PCP - General Internal Medicine 01/06/15 documented as of this encounter
--- OUTSIDE RECORDS SUMMARY | 2025-02-02 09:01 | XMS_ITS | Encounter Summary ---
Author Organization [employer] Address [address] [facility] 7 [place] [address] Care Team Providers Care Spectrographer Name Role Phone Clayton Hackett MD Primary Care Provider [phone] Encounter Details Date Type Department Care Team ([facility] st Contact Info) Description 09/11/2024 Orders Only [facility] CHC MED & PEDS [address] [place] [address] Clayton Hackett MD [address] [place] [address] Acquired hypothyroidism (Primary Dx) Social History Tobacco [...] is your housing situation today? I have bejnamin diallo 04/07/[address] you [...] Description 06/23/2025 11:00 AM EDT Office Visit [facility] OPTOMETRY [address] [place] [address] Roel, Rosy, OD [address] [place] [address] Scheduled Orders Name Type Priority Associated Diagnoses Orde r Schedule TSH W/Reflex to FT4 Lab Routine Acquired hypothyroidism Expected: 09/11/2024 (Approximate), Expires: 09/11/2025 documented as of this encounter Visit Diagnoses Diagnosis Acquired hypothyroidism- Primary Unspecified hypothyroidism documented in this encounter Additional Health Concerns Assessment Noted Time PHQ-9 Depression Total Score: 0 04/07/19 25 1:51 PM EST documented as of this encounter Care Teams Spectrographer Relationship Specialty Start Date End Date Clayton Hackett MD [address] [place] [address] PCP - General Internal Medicine 01/06/15 documented as of this encounter
--- OUTSIDE RECORDS SUMMARY | 2025-02-02 09:01 | XMS_ITS | Encounter Summary ---
Author Organization [employer] Address [address] [place] [address] Care Team Providers Care Television Repairman Name Role Phone Clayton Hackett MD Primary Care Provider [phone] Encounter Details Date Type Department Care Team (Late Contact Info) Description 06/12/2023 Orders Only [facility] CHC MED & PEDS [address] [place], [place] [phone] Clayton Hackett MD [address] [place] [address] Social History Tobacco Use Types Packs/Day Years [...] Description 06/23/2025 11:00 AM EDT Office Visit [facility] OPTOMETRY [address] [place], [place] [phone] Rosy Sevilla, OD [address] [place], [place] [phone] documented as of this encounter Visit Diagnoses Not on filedocumented in this encounter Additional Health Concerns Assessment Noted Time PHQ-9 Depression Total Score: 17 023 1:24 PM EDT documented as of this encounter Care Teams Television Repairman Relationship Specialty Start Date End Date Clayton Hackett MD [address] [place] [address] [place]as [id number] PCP - General Internal Medicine 01/06/15 documented as of this encounter
--- OUTSIDE RECORDS SUMMARY | 2025-02-02 09:01 | XMS_ITS | Encounter Summary ---
Author Organization [employer] Address [address] [place] [address] Care Team Providers Care Apple Solutions Consultant Name Role Phone Clayton Hackett MD Primary Care Provider Reason for Visit * Reason Comments Med Refill Encounter Details Date Type Department Care Team (Late Contact Info) Description 08/23/2023 Refill [facility] CHC MED & PEDS [address] [place] [address] Clayton Hackett MD [address] [place] [address] Type 2 diabetes mellitus with hyperglycemia ([facility]) Social History Tobacco Use Types Packs/Day Years [...] Description 06/23/2025 11:00 AM EDT Office Visit [facility] OPTOMETRY [address] [place] [address] Rosy Sevilla, OD [address] [place] [address] documented as of this encounter Visit Diagnoses Diagnosis Type 2 diabetes mellitus with hyperglycemia (HCC) documented in this encounter Additional Health Concerns Assessment Noted Time PHQ-9 Depression Total Score: 15 024 10:35 AM EDT documented as of this encounter Care Teams Apple Solutions Consultant Relationship Specialty Start Date End Date Clayton Hackett MD [address] [place] [phone] PCP - General Internal Medicine 01/06/15 documented as of this encounter
--- OUTSIDE RECORDS SUMMARY | 2025-02-02 09:01 | XMS_ITS | Encounter Summary ---
Author Organization [employer] Address [address] [place] [address] Care Team Providers Care Bookkeeping Teacher Name Role Phone Clayton Hackett MD Primary Care Provider [phone] Reason for Visit * Reason Comments Med Refill Encounter Details Date Type Department Care Team ([facility] st Contact Info) Description 10/28/2024 Refill [facility] CHC MED & PEDS [address] [place] [address] Clayton Hackett MD [address] [place] [address] Acquired hypothyroidism Social History Tobacco Use Types Packs/Day Years [...] Description 06/23/2025 11:00 AM EDT Office Visit [facility] OPTOMETRY [address] [place] [address] Roel, Rosy, OD [address] [place] [address] documented as of this encounter Visit Diagnoses Diagnosis Acquired hypothyroidism Unspecified hypothyroidism documented in this encounter Additional Health Concerns Assessment Noted Time PHQ-9 Depression Total Score: 0 04/07/19 25 1:51 PM EST documented as of this encounter Care Teams Bookkeeping Teacher Relationship Specialty Start Date End Date Clayton Hackett MD [address] [place] [phone] PCP - General Internal Medicine 01/06/15 documented as of this encounter
--- OUTSIDE RECORDS SUMMARY | 2025-02-02 09:01 | XMS_ITS | Encounter Summary ---
Author Organization [employer] Address [address] [place] [address] Care Team Providers Care Beverage Host Name Role Phone Clayton Hackett MD Primary Care Provider [phone]- [phone] Reason for Visit * Reason Comments Med Refill Encounter Details Date Type Department Care Team ([facility] Contact Info) Description 04/16/2022 Refill [facility] CHC MED & PEDS [address] [place] [address] Clayton Hackett MD [address] [place] [address] Essential hypertension (Primary Dx) Social History Tobacco [...] Upcoming Encounters Date Type Department Care Team ([facility] Contact Info) Description 06/23/2025 11:00 AM EDT Office Visit [facility] [address] [place] [address] Rosy Sevilla, OD [address] [place] [address] documented as of this encounter Visit Diagnoses Diagnosis Essential hypertension- Primary Unspecified essential hypertension documented in this encounter Care Teams Beverage Host Relationship Specialty Start Date End Date Calyton Hackett MD [address] [place] [address] PCP - General Internal Medicine 01/06/15 documented as of this encounter
--- OUTSIDE RECORDS SUMMARY | 2025-02-02 09:01 | XMS_ITS | Encounter Summary ---
Author Organization [employer] Address [address] [place] [address] Care Team Providers Care Medical Lab Assistant Name Role Phone Clayton Hackett MD Primary Care Provider [phone]- [phone] Reason for Visit * Reason Onset Date Comments Appointment 03/28/2022 Patient cant sloan p appt for 03/[address] Melendez. Please call patient back to rs. SHAY Encounter Details Date Type Department Care Team ([facility] st Contact Info) Description 03/28/2022 Telephone [facility] [address] [place] [address] Forrest Melendez, JAVAD [address] [place], [place] [phone] Appointment (Patient cant keep appt for 03/30 [...] Please call patient back to rs. SHAY documented in this encounter Plan of Treatment Upcoming Encounters Date Type Department Care Team (Late st Contact Info) Description 06/23/2025 11:00 AM EDT Office Visit [facility] OPTOMETRY [address] [place] [address] Roel, Rosy, OD [address] [place] [address] documented as of this encounter Visit Diagnoses Not on filedocumented in this encounter Care Teams Medical Lab Assistant Relationship Specialty Start Date End Date Clayton Hackett MD [address] [place] [address] PCP - General Internal Medicine 01/06/15 documented as of this encounter
--- OUTSIDE RECORDS SUMMARY | 2025-02-02 09:01 | XMS_ITS | Encounter Summary ---
Author Organization [employer] Address [address] [place] [address] Care Team Providers Care Rn Enterostomal Name Role Phone Clayton Hackett MD Primary Care Provider [phone] Encounter Details Date Type Department Care Team (Latest Contact Info) Description 04/02/2018 Abstract [facility] CONVERSIONS Dental, Provider, DDS Social History [...] Description 06/23/2025 11:00 AM EDT Office Visit [facility] OPTOMETRY [address] [place] [address] Rosy Sevilla, OD [address] [place] [address] documented as of this encounter Visit Diagnoses Not on filedocumented in this encounter Care Teams Rn Enterostomal Relationship Specialty Start Date End Date Clayton Hackett MD [address] [place] [address] PCP - General Internal Medicine 01/06/15 documented as of this encounter
--- OUTSIDE RECORDS SUMMARY | 2025-02-02 09:02 | XMS_ITS | Encounter Summary ---
Author Organization [employer] Address [address] [facility] [address] [place] [address] Care Team Providers Care Film Sound Coordinator Name Role Phone Clayton Hackett MD Primary Care Provider [phone] Encounter Details Date Type Department Care Team (Latest Contact Info) Description 02/01/2025 Travel Social History Tobacco Use Types Packs/Day [...] Description 06/23/2025 11:00 AM EDT Office Visit [facility] OPTOMETRY [address] [place] [address] Roel, Rosy, OD [address] [place] [address] documented as of this encounter Visit Diagnoses Not on filedocumented in this encounter Additional Health Concerns Assessment Noted Time PHQ-9 Depression Total Score: 0 04/07/19 25 1:51 PM EST documented as of this encounter Care Teams Film Sound Coordinator Relationship Specialty Start Date End Date Clayton Hackett MD [address] [place] [address] PCP - General Internal Medicine 01/06/15 documented as of this encounter
--- OUTSIDE RECORDS SUMMARY | 2025-02-02 09:02 | XMS_ITS | Encounter Summary ---
Author Organization [employer] Address [address] [place] [address] Care Team Providers Care Apprentice Painter Brush Name Role Phone Clayton Hackett MD Primary Care Provider [phone]- [phone] Reason for Visit * Reason Comments Med Refill Encounter Details Date Type Department Care Team ([facility] Contact Info) Description 11/14/2022 Refill [facility] CH[facility] MED & PEDS [address] [place] [address] Clayton Hackett MD [address] [place] [address] Type 2 diabetes mellitus with hyperglycemia (CMS/[facility]) Social History Tobacco Use Types [...] Upcoming Encounters Date Type Department Care Team ([facility] Contact Info) Description 06/23/2025 11:00 AM EDT Office Visit [facility] OPTOMETRY [address] [place] [address] Rosy Sevilla, OD [address] [place] [address] documented as of this encounter Visit Diagnoses Diagnosis Type 2 diabetes mellitus with hyperglycemia (HCC) documented in this encounter Additional Health Concerns Assessment Noted Time PHQ-9 Depression Total Score: 17 08/23/ 023 1:24 PM EDT documented as of this encounter Care Teams Apprentice Painter Brush Relationship Specialty Start Date End Date Clayton Hackett MD [address] [place] [address] PCP - General Internal Medicine 01/06/15 documented as of this encounter
--- OUTSIDE RECORDS SUMMARY | 2025-02-02 09:02 | XMS_ITS | Clinical Summary ---
Author Organization [employer] Address [address] [place] [address] 7 [place] [address] Care Team Providers Care Filter Screen Cleaner Name Role Phone Clayton Hackett MD Primary Care Provider [phone]- [phone] Allergies No known active allergies Medications * This document contains information received from the source organization and may not represent a complete record from that organization. fluticasone (Flonase Allergy Relief) 50 MCG/ACT nasal spray Administer 2 sprays into affected nostril(s) in the morning. 03/01/20 20 Active loratadine (Claritin) 10 MG tablet Take 1 tablet by mouth in the morning. 03/01/20 20 Active methocarbamol (Robaxin) 750 MG tablet Take 1 tablet by mouth every 6 (six) hours. 08/09/19 22 Active polyvinyl alcohol (Artificial Tears) 1.4 % ophthalmic solution one drop in each eye 3 times a day 02/06/20 18 Active tamsulosin (Flomax) 0.4 MG 24 hr capsule Take 1 capsule by mouth at bed time. 10/28/19 21 Active tiZANidine (Zanaflex) 2 MG tablet Take 1 tablet by mouth every 12 (twelve) hours. 11/29/19 21 Active dicyclomine (Bentyl) 20 MG tablet TAKE ONE TABLET FOUR TIMES DAILY 04/19/19 23 Active omeprazole (PriLOSEC) [address] capsule Take 40 mg by mouth in the morning. 03/13/19 23 Active sucralfate (Carafate) 1 g tablet TAKE TWO TABLETS TWICE DAILY 04/19/19 23 Active TRUEplus Lancets 33G [facility] TEST BLOOD SUGAR ONCE DAILY DIRECTED 100 each 5 08/13/19 23 Active gabapentin (Neurontin) 100 MG capsuleIndications :Type 2 diabetes mellitus without complication, without long-term current use of insulin ([facility]) Take 1 capsule (100 mg) by mouth in the morning. 1 capsule at bedtime 30 capsule 11 08/24/19 23 Active diclofenac (Cataflam) 50 MG tabletIndications: Right flank pain Take 1 tablet (50 mg) by mouth every 8 (eight) hours. 30 tablet 3 08/24/19 23 Active pseudoephedrine (Sudafed) 30 MG tabletIndications: Post-nasal drip Take 1 tablet (30 mg) by mouth every 4 (four) hours if needed for congestion for up to 10 days. 30 tablet 05/14/19 24 Active chlorhexidine (Peridex) 0.12 % solution Swish 15 mL morning and night for 1 minute. Spit, do not swallow. Do not eat or drink for 30 minutes following use. 473 mL 07/18/19 24 Active acetaminophen (Tylenol) 500 MG tablet Take 1 tablet (500 mg) by mouth every 6 (six) hours if needed for mild pain for up to 20 doses. 20 tablet 07/19/19 24 Active DULoxetine (Cymbalta) [address] capsuleIndications :Other depression Take 1 capsule (20 mg) by mouth 2 times daily. Do not crush or chew. 60 capsule 11 10/07/19 24 Active Diclofenac Sodium 1 % gelIndications:Lef t lateral epicondylitis To apply to the affected area 3 times a day 100 g 10/07/19 24 Active hydrocortisone (Anusol-HC) 2.5 % rectal creamIndications:E xternal hemorrhoids Insert into the rectum 2 times daily. 28 g 1 10/07/19 24 Active glucose blood (FREESTYLE LITE) test stripIndications:T ype 2 diabetes mellitus without complication, without long-term current use of insulin ([facility]) TEST BLOOD SUGAR EVERY DAY 50 strip 7 12/31/19 24 Active methocarbamol (Robaxin) 750 MG tabletIndications: Muscle spasm,Right flank pain Take 1 tablet (750 mg) by mouth 4 times daily for 10 days. 40 tablet 04/07/19 25 Active econazole nitrate 1 % creamIndications:T oe web intertrigo Apply topically Once per day. 30 g 06/10/19 25 026 Active lisinopril 5 MG tabletIndications: Essential hypertension TAKE ONE TABLET EVERY DAY 90 tablet 1 07/29/19 Active meloxicam (Mobic) 15 MG tabletIndications: Lateral epicondylitis of right elbow Take 1 tablet (15 mg) by mouth Once per day. 30 tablet 09/11/19 026 Active levothyroxine (Synthroid) 137 MCG tabletIndications: Acquired hypothyroidism Take 137 mcg by mouth before breakfast. 30 tablet 09/12/19 25 026 Active Trulicity 3 MG/0.5ML solution auto-injectorIndic ations:Type 2 diabetes mellitus without complications (HCC) INJECT 3mg's SUBCUTANEOUSLY ONCE PER WEEK 2 mL 11/13/19 Active Active Problems Problem Noted Date Diagnosed [...] intervention , [facility], Patient to reach out [...] intervention , Patient to reach out to [facility] team as needed, Comply with medication , and Patient to engage in OP therapy Simple obesity 01/23/2016 Encounters Date Type Department Care Team Description 02/01/2025 Travel 11/11/2024 Refill [facility] CHC MED & PEDS [address] [place] [address] Clayton Hackett MD Type 2 diabetes mellitus without complications ([facility]) from Last 3 Months Immunizations Immunization Administration Dates Next Due Influenza injectable quadriv [...] Mass Index 40.51 09/10/2024 10:36 AM EDT Plan of Treatment Upcoming Encounters Date Type Department Care Team (Late st Contact Info) Description 06/23/2025 11:00 AM EDT Office Visit [facility] OPTOMETRY [address] [place] [address] Roel, Rosy, OD [address] [place] [address] Health Maintenance Due Date Last Done Comments CT Colonography 1971 Dental Oral Exam 1971 FIT DNA/Cologuard 1971 Sigmoidoscopy 1971 Hepatitis B Vaccines (1 of 3 - 19+ 3-dose series) 08/08/1990 RSV Patients and Patients Aged 60 years or older (1 - Risk 50-74 years 1-dose series) 08/08/2021 Zoster Vaccines (1 of 2) 08/08/2021 FIT 08/16/2022 08/16/2021 FOBT 08/16/2022 08/16/2021 Diabetes: Foot Exam 08/24/2023 08/23/2022, 08/23/2022, 08/23/2022, Additional history exists Dental Prophylaxis 01/19/2024 07/18/2023, 03/22/2022 Dental X-Ray: Bitewings 07/18/2024 07/18/19 24, 05/13/2023, 04/15/2023, Additional history exists Colonoscopy 10/04/2024 10/04/2021, 09/09, 10/04/2021 Colorectal Cancer Screening 10/04/2024 COVID-19 Vaccine ( season) 2024 08/16/2020, 07/26/2020 Influenza Vaccine (#1) 2024 , 12/22/2019, 04/17/2018, Additional history exists Diabetes: Hemoglobin A1C 03/13/2025 025, 10/07/2023, 05/14/2023, Additional history exists Dental X-Ray: Full Mouth 03/23/2025 03/22/2022 Alcohol/Substance Use Screening 04/07/2025 04/07/2024 Depression Screening 04/07/2025 04/07/2024, 04/07/19 SDOH Screening 04/07/2025 04/07/2024 Diabetes: Urine Protein Screening 09/10/2025 09/10/2024, 11/06/2021, 06/28/2021, Additional history exists Disability Screening 09/10/2025 09/10/2024 Lipid Panel 09/10/2025 09/10/2024, 2 , 03/15/2020 Tobacco Screening 09/10/2025 09/10/2024 Eye Exam 06/10/2026 06/10/2024, 04/0 04/2024, 06/10/2024, Additional history exists DTaP/Tdap/Td Vaccines (3 - Td or Tdap) 10/15/2029 10/16/2019, 01/06/2015 HIV Screening Completed 06/28/2021 Hepatitis C Screening Completed 06/28/2021 Pneumococcal Vaccine: 50+ Years Completed 12/09/2023 HIB [...] patient's age to complete this topic Meningococcal B Vaccine Aged Out No l onger eligible based on patient's age to complete [...] Procedure Name Priority Date/Time Associated Diagnosis Comments LIPID PANEL, STANDARD Routine 09/10/2024 11:22 AM EDT Type 2 diabetes mellitus without complication, without long-term current use of insulin ([facility]) ALBUMIN, RANDOM URINE W/CREATININE Routine 09/10/2024 11:14 AM EDT Type 2 diabetes mellitus without complication, without long-term current use of insulin ([facility]) POCT GLYCATED HEMOGLOBIN, TOTAL Routine 09/10/2024 10:38 AM EDT Type 2 diabetes mellitus without complication, without long-term current use of insulin ([facility]) PROPHYLAXIS - ADULT Routine 07/18/2023 8 :00 AM EDT Periodontal disease Dental calculus Missing teeth, acquired Open fracture of tooth, initial encounter BITEWING - SINGLE RADIOGRAPHIC IMAGE Routine 07/18/2023 8:00 AM EDT Periodontal disease Dental calculus Missing teeth, acquired Open fracture of tooth, initial encounter INTRAORAL - COMPLETE SERIES OF RADIOGRAPHIC IMAGES Routine 03/22/2022 8:00 AM EST COLONOSCOPY Routine 10/04/2021 HM IFOBT Routine 08/16/2021 11:55 AM EDT ZZZ HISTORICAL HEPATITIS C AB W/REFL TO HCV RNA, QN, PCR Routine 06/28/2021 11:33 AM EDT HIV 1/2 ANTIGEN/ANTIBODY, FOURTH GENERATION W/RFL Routine 06/28/2021 11:33 AM EDT from Last 3 Months or Most Recently Relevant to Health Maintenance Results * (ABNORMAL) Lipid Panel, Standard (09/10/2024 11:22 AM EDT) Triglycerides 70 <150 mg/dL [facility] Comment:Desirable Triglyceri de: less than 150 mg/dLBorderline High Triglyceride 150-199 mg/dLHigh Triglyceride: 200-499 mg/dLVery High Triglyceride: greater than or equal to 5OO mg/dL Cholesterol 151 <200 mg/dL [facility] Comment:Desirable Cholestero l: less than 200 mg/dLBorderline High Cholesterol: 200-239 mg/dLHigh Cholesterol: greater than 239 mg/dL LDL Cholesterol Calculated 98 <100 mg/dL [facility] Comment:Desirable LDL: less than 100 mg/dLNear Optimal/Above Optimal LDL: 110- 129 mg/dLBorderline High LDL: 130-159 mg/dLHigh LDL: 160-189 mg/dLVery High LDL: greater than or equal to 190 mg/dL HDL Cholesterol 39(L) >40 mg/dL [facility] Comment:Desirable HDL: great er than 40 mg/dL Note: This HDL assay may give artificially low results in patients with liver disease. Blood Venous blood specimen / Unknown 09/10/2024 11:22 AM EDT 09/10/2024 2:53 PM EDT us Clayton Hackett MD LAB BLOOD ORDERABLES Final Result Performing Organization Address [facility] Co de Phone Number [facility] [address] [place] [phone] * Albumin, Random Urine W/Creatinine (09/10/2024 11:14 AM EDT) Creatinine, Urine 198.27 mg/dL [facility] Microalbumin Urine <5.0 mg/L [facility] Microalbum Creatinine Ratio Ur TNP <30 ug/mg cr [facility] Comment:Unable to calculate albumin/creatinine ratio due to lowmicroalbumin or creatinine result. Urine (Urine, Random) 09/10/2024 11:14 AM EDT 09/10/2024 2:40 PM EDT us Clayton Hackett MD LAB URINE ORDERABLES Final Result Performing Organization Address [facility] Co de Phone Number [facility] [address] [place] [phone] * POCT A1C (09/10/2024 10:38 AM EDT) Hemoglobin A1C 5.6 4.0 - 5.7 % QC Media Lot # Comment:[id number] Lot# Expiration Date Comment:03/12/2026 Blood 09/10/2024 10:3 8 AM EDT Clayton Hackett MD POINT OF CARE TEST ENTER/ED IT ORDERABLES Final Result * (ABNORMAL) Colonoscopy (10/04/2021) Anatomical Region Laterality Modality Endoscopy Narrative 10/04/[address] Casey Moctezuma. Dx: Polyp of ascending colon. Bx: Tubular adenoma. Neg for High grade dysplasia or carcinoma. Historical Provider ENDOSCOPY PROCEDURE ORDER MARY Final Result * gFOBT (08/16/2021 11:55 AM EDT) Fecal Occult Blood 1 Negative Fecal Occult Blood 2 Negative Fecal Occult Blood 3 Negative 08/16/2021 11:5 5 AM EDT Historical Provider POINT OF CARE TEST ENTER/ EDIT ORDERABLES Final Result * HEPATITIS C AB W/REFL TO HCV RNA, QN, PCR (06/28/2021 11:33 AM EDT) HEPATITIS C ANTIBODY NON-REACT CHARLEEN NON-REACT CHARLEEN [facility] INDEX 0.02 <1.00 [facility] Comment: HCV antibody was non-reactive. There is no laboratory evidence of HCV infection. In most cases, no further action is required. However, if recent HCV exposure is suspected, a test for HCV RNA (test code 42627) is suggested. For additional information please refer to http://education.[employer]/faq/OZU35t1 (This link is being provided for informational/ educational purposes only.) 06/28/2021 11:3 3 AM EDT Andra Waldrop MD HISTORICAL/NON ORDERABLE LABS Final Result [facility] [address] * HIV 1/2 ANTIGEN/ANTIBODY,FOURTH GENERATION W/RFL (06/28/2021 11:33 AM EDT) HIV-1/2 ANTIGEN AND ANTIBODIES, 4TH GENERATION W/ REFLEX NON-REACT CHARLEEN NON-REACT CHARLEEN [facility] Comment: HIV-1 antigen and HIV-1/HIV-2 antibodies were not detected. There is no laboratory evidence of HIV infection. PLEASE NOTE: This information has been disclosed to you from records whose confidentiality may be protected by state law. If your state requires such protection, then the state law prohibits you from making any further disclosure of the information without the specific written consent of the person to whom it pertains, or as otherwise permitted by law. A general authorization for the release of medical or other information is NOT sufficient for this purpose. For additional information please refer to http://education.[employer]/faq/TYF905 (This link is being provided for informational/ educational purposes only.) The performance of this assay has not been clinically validated in patients less than 2 years old. 06/28/2021 11:3 3 AM EDT us Andra Waldrop MD LAB BLOOD ORDERABLES Final Re sult [facility] [address] from Last 3 Months or Most Recently Relevant to Health Maintenance Insurance [facility] C3 [place] ST[place] AD[place] Care Teams Filter Screen Cleaner Relationship Specialty Start Date End Date Clayton Hackett MD [address] [place] [phone] PCP - General Internal Medicine 01/06/15
--- OUTSIDE RECORDS SUMMARY | 2025-02-02 09:02 | XMS_ITS | Encounter Summary ---
Author Organization [employer] Address [address] [place] [address] Care Team Providers Care Pmo Business Analyst Name Role Phone Clayton Hackett MD Primary Care Provider Encounter Details Date Type Department Care Team (Latest Contact Info) Description 06/21/2020 Abstract [facility] CONVERSIONS Dental, Provider, DDS Social History [...] Description 06/23/2025 11:00 AM EDT Office Visit [facility] OPTOMETRY [address] [place] [address] Rosy Sevilla, OD [address] [place] [address] documented as of this encounter Visit Diagnoses Not on filedocumented in this encounter Care Teams Pmo Business Analyst Relationship Specialty Start Date End Date Clayton Hackett MD [address] [place] [address] PCP - General Internal Medicine 01/06/15 documented as of this encounter
--- OUTSIDE RECORDS SUMMARY | 2025-02-02 09:02 | XMS_ITS | Encounter Summary ---
Author Organization [employer] Address [address] [place] [address] Care Team Providers Care Truck Unloader Name Role Phone Clayton Hackett MD Primary Care Provider Encounter Details Date Type Department Care Team (Latest Contact Info) Description 04/08/2019 Abstract [facility] CONVERSIONS Dental, Provider, DDS Social [...] Description 06/23/2025 11:00 AM EDT Office Visit [facility] OPTOMETRY [address] [place] [address] Rosy Sevilla, OD [address] [place] [address] documented as of this encounter Visit Diagnoses Not on filedocumented in this encounter Care Teams Truck Unloader Relationship Specialty Start Date End Date Clayton Hackett MD [address] [place] [address] PCP - General Internal Medicine 01/06/15 documented as of this encounter
--- OUTSIDE RECORDS SUMMARY | 2025-02-02 09:02 | XMS_ITS | Encounter Summary ---
Author Organization [employer] Address [address] [place] [phone] Care Team Providers Care Enrober Tender Name Role Phone Clayton Hackett MD Primary Care Provider [phone]- [phone] Reason for Visit * Reason Comments Med Refill Encounter Details Date Type Department Care Team ([facility] Contact Info) Description 04/18/2022 Refill [facility] CHC MED & PEDS [address] [place] [address] Clayton Hackett MD [address] [place] [address] Acquired hypothyroidism (Primary Dx) Social History Tobacco [...] Department Care Team ([facility] Contact Info) Description 06/23/2025 11:00 AM EDT Office Visit [facility] [address] [place] [address] Rosy Sevilla, OD [address] [place] [address] documented as of this encounter Visit Diagnoses Diagnosis Acquired hypothyroidism- Primary Unspecified hypothyroidism documented in this encounter Care Teams Enrober Tender Relationship Specialty Start Date End Date Clayton Hackett MD [address] [place] [phone] PCP - General Internal Medicine 01/06/15 documented as of this encounter
--- OUTSIDE RECORDS SUMMARY | 2025-02-02 09:02 | XMS_ITS | Encounter Summary ---
Author Organization [employer] Address [address] [place] [address] Care Team Providers Care Contact Lens Inspector Name Role Phone Clayton Hackett MD Primary Care Provider Encounter Details Date Type Department Care Team (Latest Contact Info) Description 04/10/2018 Abstract [facility] CONVERSIONS Dental, Provider, DDS Social History [...] Description 06/23/2025 11:00 AM EDT Office Visit [facility] OPTOMETRY [address] [place] [address] Rosy Sevilla, OD [address] [place] [address] documented as of this encounter Visit Diagnoses Not on filedocumented in this encounter Care Teams Contact Lens Inspector Relationship Specialty Start Date End Date Clayton Hackett MD [address] [place] [address] PCP - General Internal Medicine 01/06/15 documented as of this encounter
--- OUTSIDE RECORDS SUMMARY | 2025-02-02 09:02 | XMS_ITS | Encounter Summary ---
Author Organization [employer] Address [address] [place] [id number] Care Team Providers Care Die Maker Stamping Name Role Phone Clayton Hackett MD Primary Care Provider [phone]- [phone] Encounter Details Date Type Department Care Team (Late Contact Info) Description 12/11/2023 [facility] Information Management [address] [place], [place] [phone] Provider, MD Yenni Social History Tobacco Use Types Packs/Day Years [...] Team ([facility] Contact Info) Description 06/23/2025 11:00 AM EDT Office Visit [facility] OPT[facility] [address] [place], [place] [phone] Rosy Sevilla, OD [address] [place], [place] [phone] documented as of this encounter Procedures Procedure [...] documented as of this encounter Care Teams Die Maker Stamping Relationship Specialty Start Date End Date Clayton Hackett MD [address] [place] [id number] PCP - General Internal Medicine 01/06/15 documented as of this encounter
--- OUTSIDE RECORDS SUMMARY | 2025-02-02 09:02 | XMS_ITS | Clinical Summary ---
Author Organization [facility] Facility Address [address] [place] [id number] Care Team Providers Care Starch And Prosize Mixer Name Role Phone Clayton Hackett MD Primary [...] Colonoscopy 08/08/2020 Colorectal Cancer Screening: Sigmoidoscopy 08/08/2020 Pneumococcal Vaccine: 50+ Years (1 of 1 - PCV) 022 Influenza Vaccine (#1) 2024 [place] Medicaid [place] Care Teams Starch And Prosize Mixer Relationship Specialty Start Date End Date Clayton Hackett MD [address] [place] [address] [phone] PCP - General Internal Medicine 07/12/21
--- OUTSIDE RECORDS SUMMARY | 2025-02-02 09:02 | XMS_ITS | Encounter Summary ---
Author Organization [employer] Address [address] [place] [address] Care Team Providers Care Sex Crimes Detective Name Role Phone Clayton Hackett MD Primary Care Provider [phone]- [phone] Encounter Details Date Type Department Care Team (Late Contact Info) Description 01/09/2023 Abstract [facility] MEDIC[facility] [address] [place] [address] Clayton Hackett MD [address] [place] [address] Social History Tobacco Use Types Packs/Day Years [...] 06/23/2025 11:00 AM EDT Office Visit [facility]OM[facility] [address] [place] [address] Rosy Sevilla, OD [address] [place] [address] documented as of this encounter Procedures Procedure [...] documented as of this encounter Care Teams Sex Crimes Detective Relationship Specialty Start Date End Date Clayton Hackett MD [address] [place] [id number] PCP - General Internal Medicine 01/06/15 documented as of this encounter
--- NOTE | 2025-02-02 09:16 | MHC.OFFVIS ---
Vital Signs 02/02/25 09:23 Height 5 ft 8 in Weight 280 lb BMI 42.6 BP 128/64 Blood Pressure Location Rt brachial Position Sitting Pulse 66 Pulse Source Pulse Oximeter Pulse Oximetry (%) 96 Oxygen Delivery Method Room Air Intake Visit Reasons: 6 mo f/u Intake Note: Est pt for mgmt of [facility]IC + GERD. CC; Pt denies any new GI concerns or sx at this time. Confirms he is taking his current Rx as instructed and w/o complication. [employer] Required: Yes [employer] Services: [employer] Present [employer] Name: Gianni [id number] Information Interpreted: clinical only Accompanied by: Self / Same As Patient Allergies No Known Allergies (No Known Allergies*) Allergy (Verified 02/02/25 09:21) HPI HPI 6 mo f/u: Details: Assessment & Plan (1) GERD (gastroesophageal reflux disease): Code(s): K21.9 - Gastro-esophageal reflux disease without esophagitis Category: Medical 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 Category: Medical Plan [place] #Andra Mayorga His sucralfate, omeprazole once a day, and dicyclomine control his GI conditions well. Return office visit in 6 months Medications: Refilled dicyclomine 20 mg PO QID 120 tabs 6RF 30 days K21.9 - Gastro-esophageal reflux disease without esophagitis, K90.89 - Other intestinal malabsorption omeprazole 40 mg PO DAILY 30 caps 6RF K21.9 - Gastro-esophageal reflux disease without esophagitis, K90.89 - Other intestinal malabsorption sucralfate 2 grams (2 x 1 gram) PO BID 120 ea 6RF K90.89 - Other intestinal malabsorption TODAY'S VISIT [place] # ROYA Medical History Right upper quadrant abdominal pain Colon cancer screening Cholecystectomy planned Thyroid activity decreased Surgical History History of cholecystectomy Family History Father Diabetes High blood pressure Mother Hypothyroid High blood pressure Social History Household Members: Spouse Alcohol intake: never Patient Tobacco Use Status: Never used Tobacco Review of Systems Const Denies fatigue, Denies fever(s), Denies night sweats, Denies poor appetite and Denies weight loss Eyes Details: glasses Reports requires corrective lenses ENT Reports Normal hearing present, Denies dental pain, Denies dysphagia, Denies hearing loss, Denies mouth pain, Denies odynophagia, Denies throat swelling, Denies tongue swelling and Reports other (Dentition adequate) GI Details: Denies abdominal pain, Denies melena, Denies bloating, Denies hematochezia, Denies constipation, Denies GI cramping, Denies dysphagia, Denies excessive flatus, Denies early satiety, Denies heartburn, Denies diarrhea, Denies nausea, Denies odynophagia, Denies vomiting and Denies hematemesis Skin/Breast Denies pruritus, Denies lesions, Denies rash and Denies jaundice Neuro Reports Normal hearing present and Denies Abnormal speech present Endo Denies fatigue Aller/Immun Denies throat swelling and Denies tongue swelling Physical Exam Vital Signs: Last Vital Signs Pulse 66 02/02/25 09:23 BP 128/64 02/02/25 09:23 Pulse Ox 96 02/02/25 09:23 Oxygen Delivery Method Room Air 02/02/25 09:23 BMI result Body Mass Index 42.6 Const General: cooperative, no acute distress, well developed and well groomed Nutritional Appearance: well nourished, obese and overweight Orientation/consciousness: oriented to person, oriented to place and oriented to time Limitations: No language barrier, ambulation with cane, ambulation with walker and wheelchair HEENT Head: Yes normocephalic and Yes atraumatic Eyes General: appearance normal, both eyes and all related structures Pupils: Equal, round and reactive pupils present Neck Neck: Yes normal visual inspection and Yes no lymphadenopathy Thyroid: Thyroid normal Resp Effort & Inspection: normal respiratory effort and able to speak in complete sentences Auscultation: clear to auscultation bilaterally Cardio Rate: regular rate Rhythm: regular rhythm Heart sounds: Normal, physiologic split S2 sound present Peripheral pulses: radial pulses present and posterior tibial pulses present GI Inspection: No distended and No Abdominal panniculus present Palpation (GI): Soft to palpation, nontender, no guarding, not rigid, No hepatosplenomegaly present and Hepatosplenomegaly present Percussion: Yes normal to percussion Auscultation: normal bowel sounds Rectal Exam - Male: Yes deferred Skin General skin exam: no rashes or lesions noted, turgor normal, skin not dry, no jaundice, No spider nevi and no striae Rashes: no rashes Nails: normal Neuro General: oriented to person, oriented to place and oriented to time Cranial nerves: Yes Equal, round and reactive pupils present and Yes Normal hearing present Speech: No Abnormal speech present Extrem General: Yes normal to inspection, No clubbing, No cyanosis and No edema Psych Thought process: Normal thought process present and not confabulating Thought content: Normal thought content present Insight: Good insight present (Psych) Judgement: Good judgement present (Psych) Assessment & Plan Assessment & Plan (1) GERD (gastroesophageal reflux disease): Code(s): K21.9 - Gastro-esophageal reflux disease without esophagitis Category: Medical 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 Category: Medical (3) Tubular adenoma of colon: Comment: 2021 scope repeated in 5 years Code(s): D12.6 - Benign neoplasm of colon, unspecified Category: Medical Plan [place] #[employer] He continues on sucralfate, omeprazole once a day, and dicyclomine control his GI conditions well. Subjective Follow-up visit. Patient reports doing well overall. Currently taking omeprazole and dicyclomine. He receives a once-weekly injection identified as Trulicity; he describes occasional mild gastrointestinal discomfort with the injections but is otherwise well. He denies any other new health problems. Prior colonoscopy in 2021 revealed a polyp; surveillance colonoscopy planned for 2026. 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 - Education provided that Trulicity can slow gastric emptying and may cause GI side effects. - Advised to return if dose is increased and he experiences constipation or other significant GI symptoms; I can assist with management to maintain therapy if tolerated. - No changes to current regimen today. - Follow up in 6 months, or sooner as needed for worsening GI symptoms. History of colon polyp with surveillance colonoscopy scheduling: Prior polyp found on colonoscopy in 2021; surveillance interval confirmed. - Next colonoscopy planned for 2026; no action needed today. Medications: Refilled omeprazole 40 mg PO DAILY 30 caps 6RF K21.9 - Gastro-esophageal reflux disease without esophagitis, K90.89 - Other intestinal malabsorption sucralfate 2 grams (2 x 1 gram) PO BID 120 ea 6RF K90.89 - Other intestinal malabsorption dicyclomine 20 mg PO QID 120 tabs 6RF 30 days K21.9 - Gastro-esophageal reflux disease without esophagitis, K90.89 - Other intestinal malabsorption Coding Level of Care Code Est Pt Level 3 (23007) Diagnoses GERD (gastroesophageal reflux disease) K21.9 Bile salt-induced diarrhea K90.89 Tubular adenoma of colon D12.6
[2025-02-02 09:23] VITALS: BP 128/64; PULSE 66; O2SAT 96; BMI 42.6
== END 2025-02-02 09:37 | disposition home or self-care (01) ==
LOC: HO.HGI 08:40
PROVIDERS: PCP Internal Medicine; Visit Provider Nurse Practitioner
DX: K21.9 Gastro-esophageal reflux disease without esophagitis (principal); K90.89 Other intestinal malabsorption; D12.6 Benign neoplasm of colon, unspecified
CPT/HCPCS: 99213

== ENCOUNTER → 2025-02-02 08:40 | Outpatient (BNVA) | payer MEDICAID, SELFPAY | PROVIDERS: PCP Internal Medicine; Visit Provider Nurse Practitioner | DX: K21.9 Gastro-esophageal reflux disease without esophagitis (principal); K90.89 Other intestinal malabsorption; D12.6 Benign neoplasm of colon, unspecified | CPT/HCPCS: 99212 ==